=== PATIENT | female | born 1965 | race Caucasian/White ===

== ENCOUNTER 2016-07-28 22:22 | Inpatient (IN) | payer MEDICARE, MEDICAID ==
[2016-07-28] MEDS ORDERED: CEFEPIME 2 GM/D5W RTU 50 ML IV ONE (22:34)
[2016-07-28] MEDS ORDERED: NORMAL SALINE 1000 ML 1,000 ML IV ONE ×2 (22:35→23:52)
[2016-07-28] MEDS ORDERED: KETAMINE HCL INJ 500 MG/10 ML VIAL ONE (22:39)
--- NOTE | 2016-07-28 22:43 | ER Document Report ---
ED General - General Stated Complaint: UNRESPONSIVE Cannot obtain history due to: Unstable vital signs, Altered mental status Notes: Patient is a 50-year-old female with past medical history of chronic pain, depression, history of polysubstance abuse currently off her narcotic and benzodiazepine medications who presents by EMS after being found by family unresponsive. EMS notes that her initial oxygen saturation was 32% on room air. Family states the patient had apparently been hallucinating throughout the day today but had been able to be up and walking around. Family notes that she had had a cough and had been seen by her primary care physician for this several days ago and diagnosed with bronchitis. History is otherwise very limited as patient arrives with a GCS of 3 and is unable to provide any meaningful history. She is critically ill and unstable at time of arrival. TRAVEL OUTSIDE OF THE [place] IN LAST 30 DAYS: No - Related Data Allergies/Adverse Reactions: Penicillins Allergy (Severe, Verified 01/08/16 04:43) Hives acetaminophen [From Tylenol] Allergy (Intermediate, Verified 01/08/16 04:43) Hives Home Medications: Current Home Medications Buspirone HCl 7.5 mg PO BID 07/29/16 [History] Zolpidem Tartrate 10 mg PO DAILY PRN 07/29/16 [History] Past Medical History - General Information source: Emergency Med Personnel Cannot obtain history due to: Unstable vital signs, Altered mental status - Social History Smoking Status: Unknown if Ever Smoked Lives with: Family Family History: Reviewed & Not Pertinent - Past Medical History Cardiac Medical History: Reports: Hx Congestive Heart Failure, Hx Hypertension Denies: Hx Coronary Artery Disease, Hx Heart Attack Pulmonary Medical History: Reports: Hx Asthma, Hx Bronchitis, Hx Pneumonia Denies: Hx COPD, Hx Tuberculosis Neurological Medical History: Reports: Hx Migraine, Hx Seizures. Denies: Hx Cerebrovascular Accident Endocrine Medical History: Reports: Hx Hypothyroidism Malignancy Medical History: Reports: Hx Leukemia GI Medical History: Reports: Hx Gastroesophageal Reflux Disease Musculoskeltal Medical History: Reports Hx Arthritis, Reports Hx Fibromyalgia Psychiatric Medical History: Reports: Hx Anxiety, Hx Depression Past Surgical History: Reports: Hx Cholecystectomy, Hx Hysterectomy, Hx Orthopedic Surgery - knee surgery, Hx Pacemaker, Hx Rectal Surgery - colon resection - Immunizations Immunizations up to date: Yes Hx Diphtheria, Pertussis, Tetanus Vaccination: Yes Hx Pneumococcal Vaccination: 05/03/10 Review of Systems - Review of Systems -: Yes ROS unobtainable due to patient's medical condition Physical Exam - Vital signs Vitals: Pulse Resp BP Pulse Ox 93 14 119/61 90 L 07/28/16 22:22 07/28/16 22:22 07/28/16 22:22 07/28/16 22:22 Interpretation: Hypotensive, Tachycardic, Hypoxic, Tachypneic Notes: PHYSICAL EXAMINATION: GENERAL: Critically ill in appearance. Agonal respirations. GCS of 3 HEAD: Atraumatic, normocephalic. EYES: Pupils equal round 3 mm and sluggishly reactive, sclera anicteric, conjunctiva are normal. ENT: nares patent, oropharynx clear without exudates. Dry mucous membranes. NECK: supple without lymphadenopathy LUNGS: Scattered rhonchi bilaterally left worse than right HEART: Regular tachycardia without murmurs ABDOMEN: Nondistended, soft to palpation EXTREMITIES: no pitting or edema. No cyanosis. NEUROLOGICAL: Patient does not respond to noxious stimuli in any extremity. Pupils are 3 mm and sluggishly reactive bilaterally. She does have spontaneous respirations as well as a gag reflex. PSYCH: GCS of 3 unable to assess SKIN: Warm, cool, normal turgor, no rashes or lesions noted. Course - Re-evaluation Re-evalutation: 07/28/16 22:44 Patient arrives GCS of 3 after being found unresponsive by EMS shortly prior to arrival. She does have spontaneous respirations but does not follow commands in any extremity does not move to noxious stimuli in any extremity. Pupils are 2 mm and sluggishly reactive. She has obvious vomitus and blood in her airway. Not protecting her airway at this time. Initial saturation was apparently 32 % on room air. She is cool to the touch. Patient has been seen in the emergency department on multiple occasions for similar presentations and this is not generally to be overdose although she did have no response to 4 mg of Narcan prior to arrival. Due to her failure to protect her airway, a rapid sequence induction was performed for intubation. This was achieved on the first attempt. Laboratories, chest x-ray, cultures will be obtained. She will be started on cefepime 2 g given her hypothermia, tachycardia, and immune compromised status. Thrush was noted in the oropharynx during intubation suggesting a highly immune compromised status. 07/28/16 23:53 Patient is decompensated with her systolic pressures dropping into the 70s. She remains a GCS of 3 despite no sedation or paralytics on board at this time. A right femoral central line was placed and a norepinephrine infusion was begun. Patient's chest x-ray shows bilateral infiltrates worse on the left most likely consistent with either aspiration pneumonia or community-acquired pneumonia. She was started on cefepime, Flagyl, levofloxacin. A bedside echocardiogram does not show any evidence of dilation or myocardial thickening. No pericardial effusion. IVC mildly diminished with greater than 50% respiratory fluctuation. She has been started on a second liter of normal saline. She is critically ill and continues to require intensive monitoring. Patient is too unstable to go to CT at this time. 07/29/16 00:51 Patient's MAP resting at 70 w/ norepi at 8. Family updated. Vent settings changed given elevated pc02 rr to 18. Awaiting CT results. Labs show mild troponin, CK elevated to a level consistent with rabdo. 07/29/16 02:50 CT the head has been read as negative. Patient has maintained her pressures with a map of 70 at this time on norepinephrine of 8. Repeat venous gas will be obtained at this time to ensure that her PCO2 is clearing on the appropriate settings. She has been admitted to Dr. Mtz to the ICU at this time. 07/29/16 04:38 Venous blood gas shows normalization of blood pH at this time. Patient remains hemodynamically within normal limits at this time on norepinephrine drip of 5. - Vital Signs Vital signs: Temp Pulse Resp BP Pulse Ox 99 F 93 19 109/66 98 07/29/16 03:06 07/28/16 22:22 07/29/16 04:06 07/29/16 04:06 07/29/16 04:06 - Laboratory Result Diagrams: 07/28/16 22:30 07/28/16 22:30 Laboratory results interpreted by me: 07/28/16 07/28/16 07/28/16 22:30 22:30 22:30 WBC 14.4 H RBC 3.29 L Hgb 10.7 L Hct 32.8 L MCV 100 H RDW 14.5 H Seg Neutrophils % 86.6 H Lymphocytes % 8.5 L Absolute Neutrophils 13.4 H VBG pH VBG pCO2 Chloride BUN Creatinine Est GFR ( Amer) Est GFR (Non-Af Amer) Glucose Calcium AST Creatine Kinase CK-MB (CK-2) 50.00 H NT-Pro-B Natriuret Pep TSH 0.07 L Urine Protein Urine Blood 07/28/16 07/28/16 07/28/16 22:30 22:30 22:30 WBC RBC Hgb Hct MCV RDW Seg Neutrophils % Lymphocytes % Absolute Neutrophils VBG pH VBG pCO2 Chloride 95 L BUN 29 H Creatinine 1.48 H Est GFR ( Amer) 45 L Est GFR (Non-Af Amer) 37 L Glucose 295 H Calcium 8.1 L AST 95 H Creatine Kinase 2067 H CK-MB (CK-2) NT-Pro-B Natriuret Pep 1620 H TSH Urine Protein Urine Blood 07/28/16 07/28/16 23:29 23:57 WBC RBC Hgb Hct MCV RDW Seg Neutrophils % Lymphocytes % Absolute Neutrophils VBG pH 7.18 L* VBG pCO2 68.1 H* Chloride BUN Creatinine Est GFR ( Amer) Est GFR (Non-Af Amer) Glucose Calcium AST Creatine Kinase CK-MB (CK-2) NT-Pro-B Natriuret Pep TSH Urine Protein 100 H Urine Blood MODERATE H - Diagnostic Test Radiology reviewed: Image reviewed, Reports reviewed Radiology results interpreted by me: 07/28/16 23:55 CXR: Bilateral infiltrates worse in the left - EKG Interpretation by Me Additional EKG results interpreted by me: 07/29/16 04:38 Sinus tachycardia. Rate 103. No ST elevations or depressions. QTC is 504 and prolonged Procedures - Central Line Right Femoral Time completed: 23:40 Consent obtained: No - emergent Central line pre-insertion: Chloraprep applied, Sterile drapes applied Central line lumen type: Triple Anesthetic type: 1% Lidocaine mL's of anesthesia: 1 Ultrasound guided: Yes CM at insertion site: 21 Line secured with sutures: Yes Central line post-insertion: Blood return from lumens, Biopatch applied, Sutured , Sterile dressing applied Number of attempts: 1 Complications: No - Intubation Orotracheal Time of Intubation: 22:30 Airway evaluation: Normal anatomy Mallampati Classification: Class 2 Medications: Succinylcholine, Ketamine Intubation method: Orotracheal Blade type: Blanca Blade size: 4 ETT size: 7.5 ETT secured at: Gums ETT secured at (cm): 22 Breath Sounds after Intubation: Equal End tidal CO2 confirmed: Yes Ventilator settings: SIMV Tidal volume: 500 FiO2: 80 Respirations: 12 PEEP: 8 Post Intubation Xray: Yes Intubation Complications: No complications Critical Care Note - Critical Care Note Total time excluding time spent on procedures (mins): 85 Comments: Critical care time spent obtaining history from patient or surrogate, discussions with consultants, development of treatment plan with patient or surrogate, evaluation of patient's response to treatment, examination of patient , ordering and performing treatments and interventions, ordering and review of laboratory studies, re-evaluation of patient's condition, ordering and review of radiographic studies and review of old charts Discharge - Discharge Clinical Impression: Respiratory distress, Respiratory acidosis, Septic shock Bilateral pneumonia Qualifiers: Pneumonia type: due to unspecified organism Lung location: unspecified part of lung Qualified Code(s): J18.9 - Pneumonia, unspecified organism Condition: Critical Disposition: ADMITTED INPATIENT Admitting Provider: [facility] Unit Admitted: ICU
[2016-07-28 23:22] LABS: HEMATOCRIT 32.8 % (36.0-47.0); HEMOGLOBIN 10.7 g/dL (12.0-15.5); HGB HCT DIFFERENCE -0.7; MEAN CORPUSCULAR HEMOGLOBIN 32.6 pg (27.0-33.4); MEAN CORPUSCULAR HGB CONC 32.7 g/dL (32.0-36.0); MEAN CORPUSCULAR VOLUME 100 fl (80-97); RED BLOOD COUNT 3.29 10^6/uL (3.72-5.28); RED CELL DISTRIBUTION WIDTH 14.5 % (11.5-14.0); WHITE BLOOD COUNT 14.4 10^3/uL (4.0-10.5)
[2016-07-28] MEDS ORDERED: METRONIDAZOLE 500 MG/NS RTU 100 ML IV ONE (23:26)
[2016-07-28] MEDS ORDERED: SUCCINYLCHOLINE CHLORIDE INJ 200 MG/10 ML VIAL IV ONE (23:26)
[2016-07-28] MEDS ORDERED: KETAMINE HCL INJ 500 MG/10 ML VIAL IV ONE (23:26)
[2016-07-28] MEDS ORDERED: NOREPINEPHRINE BITARTRATE INJ/PF 4 MG/4 ML SDV IV ONE (23:32)
[2016-07-28 23:36] LABS: ADD ON TESTING BLD IN LAB ACKNOWLEDGE
[2016-07-28] MEDS ORDERED: CEFEPIME INJ 2 GM VIAL ONE (23:50)
[2016-07-28] MEDS ORDERED: LEVOFLOXACIN 750 MG/D5W RTU 150 ML IV ONE (23:52)
[2016-07-28] MEDS ORDERED: DEXTROSE 5%-WATER 250 ML with NOREPINEPHRINE BITARTRATE 4 MG IV PRN ×2 (23:52)
[2016-07-28 23:55] LABS: ALANINE AMINOTRANSFERASE 35 U/L (9-52); ALBUMIN 3.7 g/dL (3.5-5.0); ALKALINE PHOSPHATASE 119 U/L (38-126); ANION GAP 19 (5-19); ASPARTATE AMINO TRANSFERASE 95 U/L (14-36); BILIRUBIN,TOTAL 0.5 mg/dL (0.2-1.3); BLOOD UREA NITROGEN 29 mg/dL (7-20); CALCIUM 8.1 mg/dL (8.4-10.2); CARBON DIOXIDE 24 mmol/L (22-30); CHLORIDE 95 mmol/L (98-107); CREATININE RESULT 1.48 mg/dL (0.52-1.25); GLUCOSE 295 mg/dL (75-110); SODIUM 138.2 mmol/L (137-145); TOTAL PROTEIN 6.3 g/dL (6.3-8.2)
[2016-07-28 23:59] LABS: ABSOLUTE LYMPHOCYTES (AUTO) 1.3 10^3/uL (0.5-4.7); ABSOLUTE MONOCYTES (AUTO) 0.7 10^3/uL (0.1-1.4); ABSOLUTE NEUT (AUTO) 13.4 10^3/uL (1.7-8.2); BASOPHILS % (AUTO) 0.2 % (0-2); EOSINOPHILS % (AUTO) 0.1 % (0-6); LYMPHOCYTES % (AUTO) 8.5 % (13-45); MONOCYTES % (AUTO) 4.6 % (3-13); SEGMENTED NEUTROPHILS % (AUTO) 86.6 % (42-78)
[2016-07-29 00:06] LABS: TROPONIN I 0.105 ng/mL
[2016-07-29 00:09] LABS: VENOUS BLOOD BASE EXCESS -5.2 mmol/L; VENOUS BLOOD HCO3 24.6 mmol/L (20-32)
[2016-07-29 00:11] LABS: THYROID STIMULATING HORMONE 0.07 uIU/mL (0.47-4.68)
[2016-07-29 00:16] LABS: VENOUS BLOOD PCO2 68.1 mmHg (35-63); VENOUS BLOOD PH 7.18 (7.30-7.42)
[2016-07-29 01:00] LABS: AMORPHOUS SEDIMENT,URINE 1+ /HPF; APPEARANCE,URINE CLOUDY; BILIRUBIN,URINE NEGATIVE (NEGATIVE); GLUCOSE, URINE NEGATIVE (NEGATIVE); KETONES,URINE NEGATIVE (NEGATIVE); LEUKOCYTE ESTERASE,URINE NEGATIVE (NEGATIVE); NITRITE,URINE NEGATIVE (NEGATIVE); PROTEIN,URINE 100 mg/dL (NEGATIVE); URINE SPECIFIC GRAVITY 1.019; UROBILINOGEN,URINE NEGATIVE mg/dL (<2.0)
[2016-07-29 01:10] LABS: URINE BARBITURATES SCREEN NEGATIVE; URINE METHADONE SCREEN NEGATIVE; URINE PHENCYCLIDINE SCREEN NEGATIVE
[2016-07-29] MEDS ORDERED: VANCOMYCIN HCL 0 MG in DEXTROSE 5%-WATER 250 ML IV NR (03:15)
[2016-07-29] MEDS: NORMAL SALINE 1000 ML 1,000 ML IV PRN ×2 (03:15→13:44)
[2016-07-29 03:40] LABS: VENOUS BLOOD BASE EXCESS -3.9 mmol/L; VENOUS BLOOD HCO3 22.7 mmol/L (20-32); VENOUS BLOOD PCO2 47.4 mmHg (35-63); VENOUS BLOOD PH 7.3 (7.30-7.42)
[2016-07-29] MEDS ORDERED: ERTAPENEM SODIUM INJ 1 GM VIAL IV PRN (03:42)
[2016-07-29] MEDS ORDERED: NOREPINEPHRINE BITARTRATE INJ/PF 4 MG/4 ML SDV IV PRN (03:46)
[2016-07-29 03:54] LABS: LIPASE 30.4 U/L (23-300); PHOSPHORUS 3.2 mg/dL (2.5-4.5)
[2016-07-29] MEDS ORDERED: VANCOMYCIN HCL INJ 1000 MG VIAL IV PRN (03:57)
[2016-07-29] MEDS ORDERED: ERTAPENEM SODIUM 1 GM in NORMAL SALINE 50 ML IV ONE (04:00)
[2016-07-29 04:10] LABS: CREATINE KINASE MB 39.5 ng/mL (<4.55)
[2016-07-29 04:25] LABS: THYROID STIMULATING HORMONE 0.06 uIU/mL (0.47-4.68)
[2016-07-29 04:26] LABS: TROPONIN I 0.386 ng/mL
[2016-07-29] MEDS ORDERED: VANCOMYCIN HCL 1,000 MG in DEXTROSE 5%-WATER 250 ML IV ONE (05:00)
[2016-07-29 08:27] LABS: ABSOLUTE LYMPHOCYTES (AUTO) 0.7 10^3/uL (0.5-4.7); ABSOLUTE MONOCYTES (AUTO) 0.6 10^3/uL (0.1-1.4); ABSOLUTE NEUT (AUTO) 11.3 10^3/uL (1.7-8.2); BASOPHILS % (AUTO) 0.2 % (0-2); HEMATOCRIT 27.2 % (36.0-47.0); HEMOGLOBIN 9.2 g/dL (12.0-15.5); HGB HCT DIFFERENCE 0.4; LYMPHOCYTES % (AUTO) 5.2 % (13-45); MEAN CORPUSCULAR HEMOGLOBIN 32.6 pg (27.0-33.4); MEAN CORPUSCULAR HGB CONC 33.6 g/dL (32.0-36.0); MEAN CORPUSCULAR VOLUME 97 fl (80-97); MONOCYTES % (AUTO) 4.9 % (3-13); RED BLOOD COUNT 2.81 10^6/uL (3.72-5.28); RED CELL DISTRIBUTION WIDTH 14.5 % (11.5-14.0); SEGMENTED NEUTROPHILS % (AUTO) 89.7 % (42-78); WHITE BLOOD COUNT 12.6 10^3/uL (4.0-10.5)
[2016-07-29 08:31] LABS: PROTHROMBIN TIME 34.7 SEC (11.4-15.4)
--- NOTE | 2016-07-29 08:37 | EKG REPORT ---
SEVERITY:- ABNORMAL ECG - SINUS TACHYCARDIA PROLONGED QT INTERVAL : Confirmed by: John Paul Weathers MD 29-Jul-2016 08:36:26
[2016-07-29 08:38] LABS: ALANINE AMINOTRANSFERASE 44 U/L (9-52); ALBUMIN 2.5 g/dL (3.5-5.0); ALKALINE PHOSPHATASE 99 U/L (38-126); ANION GAP 10 (5-19); ASPARTATE AMINO TRANSFERASE 90 U/L (14-36); BILIRUBIN,TOTAL 0.1 mg/dL (0.2-1.3); BLOOD UREA NITROGEN 24 mg/dL (7-20); CARBON DIOXIDE 24 mmol/L (22-30); CHLORIDE 105 mmol/L (98-107); CREATININE RESULT 1.09 mg/dL (0.52-1.25); GLUCOSE 110 mg/dL (75-110); POTASSIUM 3.2 mmol/L (3.6-5.0); SODIUM 139.1 mmol/L (137-145); TOTAL PROTEIN 4.7 g/dL (6.3-8.2)
[2016-07-29 08:52] LABS: ARTERIAL BLOOD BASE EXCESS -2.7 mmol/L; ARTERIAL BLOOD O2 SATURATION 76.8 % (94-98)
[2016-07-29 09:25] LABS: CALCIUM 6.7 mg/dL (8.4-10.2)
[2016-07-29] MEDS ORDERED: LEVOFLOXACIN 750 MG/D5W RTU 750 MG/150 ML RTUPB IV SCH (10:00)
[2016-07-29] MEDS ORDERED: LEVOFLOXACIN 750 MG/D5W RTU 150 ML IV SCH (10:00)
[2016-07-29] MEDS ORDERED: ERTAPENEM SODIUM 1 GM in NORMAL SALINE 50 ML IV SCH ×2 (10:00→22:00)
[2016-07-29] MEDS ORDERED: SUCCINYLCHOLINE CHLORIDE INJ 200 MG/10 ML VIAL ONE (10:07)
[2016-07-29 10:41] LABS: CREATINE KINASE MB 32.8 ng/mL (<4.55)
[2016-07-29 10:52] LABS: TROPONIN I 0.506 ng/mL
--- NOTE | 2016-07-29 13:02 | PDOC CONSULTATION ---
Consultation Consult Date: 07/29/16 Attending physician:: TATY MILLARD Consult reason:: resp fail/pna History of Present Illness Admission Date/PCP: 07/29/16 03:07 TATY MILLARD History of Present Illness: LAURIE SHEPARD is a 50 year old female Her normal state of health until approximately 4 days prior to admission he was treated for "bronchitis" using antibiotics and appeared to be slightly better however the 24 hours prior to admission became increasingly more confused when stated she went to bed and was difficult to arouse subsequently she was taken to the emergency room by EMT while on BiPAP once in the emergency room she subsequently was intubated Past Medical History Cardiac Medical History: Reports: Congestive Heart Failure, Hypertension Denies: Coronary Artery Disease, Myocardial Infarction Pulmonary Medical History: Reports: Asthma, Bronchitis, Pneumonia Denies: Chronic Obstructive Pulmonary Disease (COPD), Tuberculosis Neurological Medical History: Reports: Migraine, Seizures Endocrine Medical History: Reports: Hypothyroidism Malignancy Medical History: Reports: Leukemia GI Medical History: Reports: Gastroesophageal Reflux Disease Musculoskeltal Medical History: Reports: Arthritis, Fibromyalgia Psychiatric Medical History: Reports: Depression Hematology: Reports: Anemia Past Surgical History Past Surgical History: Reports: Cholecystectomy, Hysterectomy, Orthopedic Surgery - knee surgery, Pacemaker Social History Information Source: Relative, [facility] Records Lives with: Family Smoking Status: Current Every Day Smoker Cigarettes Packs Per Day: 0.5 Number of Years Smokin Passive smoke exposure as: Both Frequency of Alcohol Use: None Hx Recreational Drug Use: No Hx Prescription Drug Abuse: No - Advance Directive Resuscitation Status: Full Code Family History Family History: Reviewed & Not Pertinent Parental Family History Reviewed: Yes - Cancer Children Family History Reviewed: Yes - Diverticular disease Sibling(s) Family History Reviewed.: Yes - Cancer Medication/Allergy Home Medications: Atorvastatin Calcium 40 mg PO QHS 02/10/13 Duloxetine HCl [Cymbalta] 60 mg PO DAILY 02/10/13 Esomeprazole Magnesium [Nexium] 40 mg PO DAILY 02/10/13 Imatinib Mesylate [Gleevec] 400 mg PO DAILY 02/10/13 Levetiracetam [Keppra] 1,000 mg PO BID 04/22/14 Oxycodone HCl [Oxycontin] 1 tab PO BID 04/22/14 Gabapentin [Neurontin 300 mg Capsule] 300 mg PO QID 04/17/15 Budesonide/Formoterol Fumarate [Symbicort HFA 160-4.5 mcg Inhaler 6 gm] 2 puff IH Q12 #0 inhaler 07/16/15 Albuterol Sulfate [Proair HFA] 2 inh IN TID 11/30/15 Clopidogrel Bisulfate [Plavix 75 mg Tablet] 75 mg PO DAILY 11/30/15 Metoprolol Tartrate 12.5 mg PO BID 11/30/15 Oxycodone HCl 5 mg PO TID 11/30/15 Levothyroxine Sodium 100 mcg PO DAILY 01/08/16 Buspirone HCl 7.5 mg PO BID 07/29/16 Zolpidem Tartrate 10 mg PO DAILY PRN 07/29/16 Allergies/Adverse Reactions: Penicillins Allergy (Severe, Verified 01/08/16 04:43) Hives acetaminophen [From Tylenol] Allergy (Intermediate, Verified 01/08/16 04:43) Hives Review of Systems ROS unobtainable: Due to endotracheal tube Physical Exam Vital Signs: Temp Pulse Resp BP Pulse Ox 99.5 F 86 20 111/59 L 97 07/29/16 08:00 07/29/16 08:12 07/29/16 08:13 07/29/16 08:13 07/29/16 08:30 Intake & Output 07/28/16 07/29/16 07/30/16 06:59 06:59 06:59 Intake Total 437 Output Total 350 Balance 87 Weight 63.1 kg General appearance: PRESENT: no acute distress, disheveled, obese Head exam: PRESENT: atraumatic, normocephalic Eye exam: PRESENT: conjunctiva pale Mouth exam: PRESENT: moist, neck supple, tongue midline, other - ET tube Neck exam: ABSENT: carotid bruit, JVD, lymphadenopathy, thyromegaly Respiratory exam: PRESENT: decreased breath sounds, prolonged expiratory phas, rales, stridor, unlabored - Abnormal breath sounds primarily on the right anterior lateral and right posterior chest wall Cardiovascular exam: PRESENT: RRR, +S1 Pulses: PRESENT: other - Pulses diminished patient currently on vasopressor agent GI/Abdominal exam: PRESENT: normal bowel sounds, soft. ABSENT: distended, guarding, mass, organolmegaly, rebound, tenderness Rectal exam: PRESENT: deferred Gentrourinary exam: PRESENT: indwelling catheter Extremities exam: PRESENT: other - Triple-lumen catheter in femoral vein Musculoskeletal exam: PRESENT: normal inspection Skin exam: PRESENT: dry, warm Results Laboratory Results: 07/29/16 07:31 07/29/16 07:31 07/29/16 07/29/16 07/29/16 03:29 03:29 03:29 WBC RBC Hgb Hct MCV MCH MCHC RDW Plt Count Seg Neutrophils % Lymphocytes % Monocytes % Eosinophils % Basophils % Absolute Neutrophils Absolute Lymphocytes Absolute Monocytes Absolute Eosinophils Absolute Basophils Carbonic Acid HCO3/H2CO3 Ratio ABG pH ABG pCO2 ABG pO2 ABG HCO3 ABG O2 Saturation ABG Base Excess VBG pH 7.30 VBG pCO2 47.4 VBG HCO3 22.7 VBG Base Excess -3.9 FiO2 Sodium Potassium Chloride Carbon Dioxide Anion Gap BUN Creatinine Est GFR ( Amer) Est GFR (Non-Af Amer) Glucose Calcium Phosphorus 3.2 Magnesium 2.0 Total Bilirubin AST ALT Alkaline Phosphatase Ammonia 26.2 Total Protein Albumin Amylase 60 Lipase 30.4 TSH Free T4 07/29/16 07/29/16 07/29/16 03:29 07:31 07:31 WBC 12.6 H RBC 2.81 L Hgb 9.2 L Hct 27.2 L MCV 97 MCH 32.6 MCHC 33.6 RDW 14.5 H Plt Count 281 Seg Neutrophils % 89.7 H Lymphocytes % 5.2 L Monocytes % 4.9 Eosinophils % 0.0 Basophils % 0.2 Absolute Neutrophils 11.3 H Absolute Lymphocytes 0.7 Absolute Monocytes 0.6 Absolute Eosinophils 0.0 Absolute Basophils 0.0 Carbonic Acid HCO3/H2CO3 Ratio ABG pH ABG pCO2 ABG pO2 ABG HCO3 ABG O2 Saturation ABG Base Excess VBG pH VBG pCO2 VBG HCO3 VBG Base Excess FiO2 Sodium 139.1 Potassium 3.2 L Chloride 105 Carbon Dioxide 24 Anion Gap 10 BUN 24 H Creatinine 1.09 Est GFR ( Amer) > 60 Est GFR (Non-Af Amer) 53 L Glucose 110 Calcium 6.7 L* Phosphorus Magnesium Total Bilirubin 0.1 L AST 90 H ALT 44 Alkaline Phosphatase 99 Ammonia Total Protein 4.7 L Albumin 2.5 L Amylase Lipase TSH 0.06 L Free T4 1.89 07/29/16 08:35 WBC RBC Hgb Hct MCV MCH MCHC RDW Plt Count Seg Neutrophils % Lymphocytes % Monocytes % Eosinophils % Basophils % Absolute Neutrophils Absolute Lymphocytes Absolute Monocytes Absolute Eosinophils Absolute Basophils Carbonic Acid 1.42 H HCO3/H2CO3 Ratio 16:1 ABG pH 7.31 L ABG pCO2 47.2 H ABG pO2 45.1 L ABG HCO3 23.4 ABG O2 Saturation 76.8 L ABG Base Excess -2.7 VBG pH VBG pCO2 VBG HCO3 VBG Base Excess FiO2 60% Sodium Potassium Chloride Carbon Dioxide Anion Gap BUN Creatinine Est GFR ( Amer) Est GFR (Non-Af Amer) Glucose Calcium Phosphorus Magnesium Total Bilirubin AST ALT Alkaline Phosphatase Ammonia Total Protein Albumin Amylase Lipase TSH Free T4 07/29/16 07/29/16 03:29 10:05 CK-MB (CK-2) 39.50 H 32.80 H Troponin I 0.386 0.506 Impressions: Head CT 07/29/16 00:00 IMPRESSION: NORMAL BRAIN CT WITHOUT CONTRAST. Lines and tubes . Assessment & Plan - Diagnosis (1) Bilateral pneumonia Qualifiers: Pneumonia type: due to unspecified organism Lung location: unspecified part of lung Qualified Code(s): J18.9 - Pneumonia, unspecified organism Is this a current diagnosis for this admission?: YesPlan: Etiology uncertain patient is chronically treated for CML by Dr. Arriola (2) Septic shock Is this a current diagnosis for this admission?: YesPlan: Currently requiring vasopressor agents (3) COPD (chronic obstructive pulmonary disease) Qualifiers: COPD type: unspecified COPD Qualified Code(s): J44.9 - Chronic obstructive pulmonary disease, unspecified Is this a current diagnosis for this admission?: YesPlan: Continue current bronchodilator therapy (4) Leukemia Is this a current diagnosis for this admission?: YesPlan: CML being treated by Dr. Arriola - Time Critical Time spent with patient: 35 or more minutes - 50 minute
--- NOTE | 2016-07-29 13:03 | PDOC PROGRESS REPORT ---
Bedside Procedure - Central Line Right Internal jugular Time completed: 13:02 Consent obtained: Yes Central line pre-insertion: Sterile PPE donned, Betadine prep applied, Chloraprep applied, Sterile drapes applied Central line lumen type: Triple Anesthetic type: 1% Lidocaine Ultrasound guided: Yes Line secured with sutures: Yes Complications: No
[2016-07-29] MEDS ORDERED: NORMAL SALINE INJ/PF 0.9% 10 ML SDV IV PRN (13:04)
[2016-07-29] MEDS: LEVOTHYROXINE SODIUM 0.1 MG TABLET NG SCH (13:08)
[2016-07-29] MEDS: LEVETIRACETAM 500 MG TABLET GT SCH ×2 (13:09→19:57)
[2016-07-29] MEDS: LANSOPRAZOLE 30 MG TAB.RAP.DR PO SCH ×2 (13:09→19:58)
[2016-07-29] MEDS: VANCOMYCIN HCL 1,000 MG in DEXTROSE 5%-WATER 250 ML IV SCH (13:43)
[2016-07-29] MEDS: AZTREONAM 1 GM in DEXTROSE 5%-WATER 50 ML IV SCH ×2 (13:43→22:54)
[2016-07-29] MEDS: PROPOFOL 100 ML IV PRN ×3 (13:44→21:13)
[2016-07-29] MEDS: HEPARIN SOD (PORCINE) 5,000 UNIT/ML 1 ML SYRINGE SUBCUT SCH ×2 (13:45→19:30)
[2016-07-29 16:12] LABS: CREATINE KINASE MB 21.9 ng/mL (<4.55); TROPONIN I 0.421 ng/mL
[2016-07-29 17:44] LABS: ARTERIAL BLOOD BASE EXCESS -2.2 mmol/L; ARTERIAL BLOOD O2 SATURATION 95.1 % (94-98)
[2016-07-29] MEDS ORDERED: POTASSIUM CHLORIDE 20 MEQ/50 ML RTU IV SCH (18:00)
[2016-07-29] MEDS ORDERED: PHYTONADIONE INJ 10 MG/1 ML AMPULE ONE (18:04)
[2016-07-29] MEDS: POTASSIUM CHLORIDE 20 MEQ/50 ML RTU IV SCH ×2 (19:54→22:09)
--- NOTE | 2016-07-29 20:19 | PDOC H&P ---
History of Present Illness Admission Date/PCP: 07/29/16 03:07 TATY MILLARD Patient complains of: Change in mental status with difficulty arousing patient from sleep History of Present Illness: She is 50 years old female patient known to my practice with history of chronic myeloid leukemia brought to the Emergency department by EMS after family alerted service due to difficulty waking her up from sleep. She was recently seen at the office for presumed upper respiratory infection and treated for bronchitis. Family reported that patient did show some initial improvement but became more confused with worsening breathing problem. There was no reported fever or chills. No reported chest pain. No nausea or vomiting. Family reported that she was ambulatory at home before going to bed to sleep and thereafter attempts to arouse her from sleep have been difficult. In view of her change in mental status EMS was activated. EMS personnel found pain in respiratory distress with hypoxemia and need for BiPAP support enroute to the hospital. In view of her unresponsiveness and to protect her airway she was eventually intubated. She demonstrated associated hypotension necessitating pressor support and admission to ICU. Past Medical History Cardiac Medical History: Reports: Congestive Heart Failure, Hypertension Denies: Coronary Artery Disease, Myocardial Infarction Pulmonary Medical History: Reports: Asthma, Bronchitis, Pneumonia Denies: Chronic Obstructive Pulmonary Disease (COPD), Tuberculosis Neurological Medical History: Reports: Migraine, Seizures Endocrine Medical History: Reports: Hypothyroidism Malignancy Medical History: Reports: Leukemia GI Medical History: Reports: Gastroesophageal Reflux Disease Musculoskeltal Medical History: Reports: Arthritis, Fibromyalgia Psychiatric Medical History: Reports: Depression Hematology: Reports: Anemia Past Surgical History Past Surgical History: Reports: Cholecystectomy, Hysterectomy, Orthopedic Surgery - knee surgery, Pacemaker Social History Lives with: Family Smoking Status: Current Every Day Smoker Cigarettes Packs Per Day: 0.5 Number of Years Smokin Frequency of Alcohol Use: None Hx Recreational Drug Use: No Hx Prescription Drug Abuse: No - Advance Directive Resuscitation Status: Full Code Family History Family History: Reviewed & Not Pertinent Parental Family History Reviewed: Yes Children Family History Reviewed: Yes Sibling(s) Family History Reviewed.: Yes Medication/Allergy Home Medications: Atorvastatin Calcium 40 mg PO QHS 02/10/13 Duloxetine HCl [Cymbalta] 60 mg PO DAILY 02/10/13 Esomeprazole Magnesium [Nexium] 40 mg PO DAILY 02/10/13 Imatinib Mesylate [Gleevec] 400 mg PO DAILY 02/10/13 Levetiracetam [Keppra] 1,000 mg PO BID 04/22/14 Oxycodone HCl [Oxycontin] 1 tab PO BID 04/22/14 Gabapentin [Neurontin 300 mg Capsule] 300 mg PO QID 11/17/14 Budesonide/Formoterol Fumarate [Symbicort HFA 160-4.5 mcg Inhaler 6 gm] 2 puff IH Q12 #0 inhaler 07/16/15 Albuterol Sulfate [Proair HFA] 2 inh IN TID 11/30/15 Clopidogrel Bisulfate [Plavix 75 mg Tablet] 75 mg PO DAILY 11/30/15 Metoprolol Tartrate 12.5 mg PO BID 11/30/15 Oxycodone HCl 5 mg PO TID 11/30/15 Levothyroxine Sodium 100 mcg PO DAILY 01/08/16 Buspirone HCl 7.5 mg PO BID 07/29/16 Zolpidem Tartrate 10 mg PO DAILY PRN 07/29/16 Allergies/Adverse Reactions: Penicillins Allergy (Severe, Verified 01/08/16 04:43) Hives acetaminophen [From Tylenol] Allergy (Intermediate, Verified 01/08/16 04:43) Hives Review of Systems ROS unobtainable: Due to endotracheal tube, Due to mental status Physical Exam Vital Signs: Temp Pulse Resp BP Pulse Ox 98.8 F 96 20 108/58 L 97 07/29/16 18:00 07/29/16 18:00 07/29/16 19:28 07/29/16 19:28 07/29/16 19:28 Intake & Output 07/28/16 07/29/16 07/30/16 06:59 06:59 06:59 Intake Total 437 2027 Output Total 350 1105 Balance 87 922 Weight 63.1 kg General appearance: PRESENT: obese Head exam: PRESENT: atraumatic, normocephalic Eye exam: PRESENT: conjunctiva pink, EOMI, PERRLA. ABSENT: scleral icterus Ear exam: PRESENT: normal external ear exam Mouth exam: PRESENT: moist, other - ET NG tutes in situ. Respiratory exam: PRESENT: crackles - scattered bilaterally, decreased breath sounds - at lung bases, symmetrical Cardiovascular exam: PRESENT: RRR. ABSENT: diastolic murmur, rubs, systolic murmur Vascular exam: PRESENT: normal capillary refill GI/Abdominal exam: PRESENT: normal bowel sounds, soft. ABSENT: distended, guarding, mass, organolmegaly, rebound, tenderness Gentrourinary exam: PRESENT: indwelling catheter Extremities exam: PRESENT: full ROM Musculoskeletal exam: PRESENT: normal inspection Neurological exam: PRESENT: altered - sedated on IV propofol on ventilator support Skin exam: PRESENT: dry, intact, warm. ABSENT: cyanosis, rash Results Laboratory Results: 07/29/16 07:31 07/29/16 07:31 07/29/16 07/29/16 07/29/16 03:29 03:29 03:29 WBC RBC Hgb Hct MCV MCH MCHC RDW Plt Count Seg Neutrophils % Lymphocytes % Monocytes % Eosinophils % Basophils % Absolute Neutrophils Absolute Lymphocytes Absolute Monocytes Absolute Eosinophils Absolute Basophils Carbonic Acid HCO3/H2CO3 Ratio ABG pH ABG pCO2 ABG pO2 ABG HCO3 ABG O2 Saturation ABG Base Excess VBG pH 7.30 VBG pCO2 47.4 VBG HCO3 22.7 VBG Base Excess -3.9 FiO2 Sodium Potassium Chloride Carbon Dioxide Anion Gap BUN Creatinine Est GFR ( Amer) Est GFR (Non-Af Amer) Glucose Calcium Phosphorus 3.2 Magnesium 2.0 Total Bilirubin AST ALT Alkaline Phosphatase Ammonia 26.2 Total Protein Albumin Amylase 60 Lipase 30.4 TSH Free T4 07/29/16 07/29/16 07/29/16 03:29 07:31 07:31 WBC 12.6 H RBC 2.81 L Hgb 9.2 L Hct 27.2 L MCV 97 MCH 32.6 MCHC 33.6 RDW 14.5 H Plt Count 281 Seg Neutrophils % 89.7 H Lymphocytes % 5.2 L Monocytes % 4.9 Eosinophils % 0.0 Basophils % 0.2 Absolute Neutrophils 11.3 H Absolute Lymphocytes 0.7 Absolute Monocytes 0.6 Absolute Eosinophils 0.0 Absolute Basophils 0.0 Carbonic Acid HCO3/H2CO3 Ratio ABG pH ABG pCO2 ABG pO2 ABG HCO3 ABG O2 Saturation ABG Base Excess VBG pH VBG pCO2 VBG HCO3 VBG Base Excess FiO2 Sodium 139.1 Potassium 3.2 L Chloride 105 Carbon Dioxide 24 Anion Gap 10 BUN 24 H Creatinine 1.09 Est GFR ( Amer) > 60 Est GFR (Non-Af Amer) 53 L Glucose 110 Calcium 6.7 L* Phosphorus Magnesium Total Bilirubin 0.1 L AST 90 H ALT 44 Alkaline Phosphatase 99 Ammonia Total Protein 4.7 L Albumin 2.5 L Amylase Lipase TSH 0.06 L Free T4 1.89 07/29/16 07/29/16 08:35 17:37 WBC RBC Hgb Hct MCV MCH MCHC RDW Plt Count Seg Neutrophils % Lymphocytes % Monocytes % Eosinophils % Basophils % Absolute Neutrophils Absolute Lymphocytes Absolute Monocytes Absolute Eosinophils Absolute Basophils Carbonic Acid 1.42 H 1.18 HCO3/H2CO3 Ratio 16:1 19:1 ABG pH 7.31 L 7.38 ABG pCO2 47.2 H 39.1 ABG pO2 45.1 L 76.5 L ABG HCO3 23.4 22.7 ABG O2 Saturation 76.8 L 95.1 ABG Base Excess -2.7 -2.2 VBG pH VBG pCO2 VBG HCO3 VBG Base Excess FiO2 60% 40% Sodium Potassium Chloride Carbon Dioxide Anion Gap BUN Creatinine Est GFR ( Amer) Est GFR (Non-Af Amer) Glucose Calcium Phosphorus Magnesium Total Bilirubin AST ALT Alkaline Phosphatase Ammonia Total Protein Albumin Amylase Lipase TSH Free T4 07/29/16 07/29/16 07/29/16 03:29 10:05 15:25 CK-MB (CK-2) 39.50 H 32.80 H 21.90 H Troponin I 0.386 0.506 0.421 Impressions: Head CT 07/29/16 00:00 IMPRESSION: NORMAL BRAIN CT WITHOUT CONTRAST. Lines and tubes . Chest X-Ray 07/29/16 12:19 IMPRESSION: Appropriate position of support apparatus. No pneumothorax. Assessment & Plan - Diagnosis (1) Bilateral pneumonia Qualifiers: Pneumonia type: due to unspecified organism Lung location: unspecified part of lung Qualified Code(s): J18.9 - Pneumonia, unspecified organism Is this a current diagnosis for this admission?: YesPlan: Start on IV Levofloxacin and Aztreonam coverage. (2) Respiratory distress Is this a current diagnosis for this admission?: YesPlan: I will maintain on ventilator support. We will attempt to lower Fio2 to less than 50% if her saturation remain satisfactorily above 95%. I will request pulmonary consultation with Dr Portillo, nut sheller machine operator for further input to care. (3) Septic shock Is this a current diagnosis for this admission?: YesPlan: Maintain on pressor and IV fluid support. Adjust IV propofol usage as blood pressure permits. (4) Respiratory acidosis Is this a current diagnosis for this admission?: YesPlan: Maintain on ventilator support and adjust parameters to assist in correcting her underlying pathologic process. (5) Acute hypercapnic respiratory failure Is this a current diagnosis for this admission?: YesPlan: Continue ventilator support and treat underlying pathology including pneumonia, Asthma, and possible COPD. (6) CML (chronic myelocytic leukemia) Is this a current diagnosis for this admission?: YesPlan: Review therapy with Dr Arriola when medically stable. - Time Time Spent: 50 to 70 Minutes Medications reviewed and adjusted accordingly: Yes Anticipated discharge: Other Within: Other - Inpatient Certification Medical Necessity: Need Close Monitoring Due to Risk of Patient Decompensation, Need For IV Fluids, Need For Continuous Telemetry Monitoring, Need for IV Antibiotics, Risk of Complication if Not Cared For in Hospital Post Hospital Care: D/C Leather Cleaner Documentation - Plan Summary Plan Summary: Admit to ICU and manage appropriately. See admitting physician orders for details.
[2016-07-29] MEDS ORDERED: PHYTONADIONE INJ 10 MG/1 ML AMPULE SUBCUT ONE (21:00)
[2016-07-30] MEDS: DEXTROSE 5%-WATER 250 ML with NOREPINEPHRINE BITARTRATE 4 MG IV PRN ×4 (00:12→15:36)
[2016-07-30] MEDS: PROPOFOL 100 ML IV PRN ×5 (02:04→23:08)
[2016-07-30] MEDS: NORMAL SALINE 1000 ML 1,000 ML IV PRN (03:02)
[2016-07-30] MEDS: LANSOPRAZOLE 30 MG TAB.RAP.DR PO SCH ×2 (05:12→17:20)
[2016-07-30 05:58] LABS: ABSOLUTE EOSINOPHILS # (AUTO) 0.1 10^3/uL (0.0-0.6); ABSOLUTE LYMPHOCYTES (AUTO) 0.7 10^3/uL (0.5-4.7); ABSOLUTE MONOCYTES (AUTO) 0.5 10^3/uL (0.1-1.4); ABSOLUTE NEUT (AUTO) 8.9 10^3/uL (1.7-8.2); BASOPHILS % (AUTO) 0.4 % (0-2); EOSINOPHILS % (AUTO) 1.2 % (0-6); HEMATOCRIT 25.8 % (36.0-47.0); HEMOGLOBIN 8.6 g/dL (12.0-15.5); MEAN CORPUSCULAR HEMOGLOBIN 32.8 pg (27.0-33.4); MEAN CORPUSCULAR HGB CONC 33.4 g/dL (32.0-36.0); MEAN CORPUSCULAR VOLUME 98 fl (80-97); MONOCYTES % (AUTO) 4.8 % (3-13); PROTHROMBIN TIME 17.6 SEC (11.4-15.4); RED BLOOD COUNT 2.63 10^6/uL (3.72-5.28); RED CELL DISTRIBUTION WIDTH 14.6 % (11.5-14.0); SEGMENTED NEUTROPHILS % (AUTO) 86.6 % (42-78); WHITE BLOOD COUNT 10.3 10^3/uL (4.0-10.5)
[2016-07-30 06:07] LABS: ALANINE AMINOTRANSFERASE 40 U/L (9-52); ALBUMIN 2.3 g/dL (3.5-5.0); ALKALINE PHOSPHATASE 93 U/L (38-126); ANION GAP 8 (5-19); ASPARTATE AMINO TRANSFERASE 54 U/L (14-36); BLOOD UREA NITROGEN 14 mg/dL (7-20); CALCIUM 8.3 mg/dL (8.4-10.2); CARBON DIOXIDE 25 mmol/L (22-30); CHLORIDE 105 mmol/L (98-107); CREATININE RESULT 0.89 mg/dL (0.52-1.25); GLUCOSE 104 mg/dL (75-110); SODIUM 137.5 mmol/L (137-145); TOTAL PROTEIN 4.4 g/dL (6.3-8.2)
[2016-07-30 06:13] LABS: BILIRUBIN,TOTAL < 0.1 mg/dL (0.2-1.3)
[2016-07-30] MEDS: AZTREONAM 1 GM in DEXTROSE 5%-WATER 50 ML IV SCH ×3 (08:05→22:07)
[2016-07-30] MEDS: POTASSI CL 20 MEQ/50 ML RIDER 50 ML IV SCH ×2 (08:06→10:27)
[2016-07-30 08:12] LABS: ARTERIAL BLOOD BASE EXCESS -1.2 mmol/L; ARTERIAL BLOOD O2 SATURATION 96.8 % (94-98)
--- NOTE | 2016-07-30 08:16 | EKG REPORT ---
SEVERITY:- BORDERLINE ECG - SINUS RHYTHM ATRIAL PREMATURE COMPLEX POOR R PROGRESSION ANTERIOR PRECORDIAL LEADS. : Confirmed by: John Paul Weathers MD 30-Jul-2016 08:15:34
[2016-07-30] MEDS: LEVETIRACETAM 500 MG TABLET GT SCH ×2 (09:16→17:20)
[2016-07-30] MEDS: LEVOTHYROXINE SODIUM 0.1 MG TABLET NG SCH (09:16)
[2016-07-30] MEDS ORDERED: LEVOFLOXACIN 750 MG/D5W RTU 750 MG/150 ML RTUPB IV SCH ×2 (10:00→23:00)
--- NOTE | 2016-07-30 11:17 | PDOC PROGRESS REPORT ---
Subjective Progress Note for:: 07/30/16 Subjective:: Intubated and sedated Physical Exam Vital Signs: Temp Pulse Resp BP Pulse Ox 99.7 F 77 20 136/76 H 96 07/30/16 08:00 07/30/16 10:00 07/30/16 10:00 07/30/16 10:00 07/30/16 10:00 Intake & Output 07/29/16 07/30/16 07/31/16 06:59 06:59 06:59 Intake Total 437 2794 Output Total 350 2060 450 Balance 87 734 -450 Weight 63.1 kg 64.9 kg General appearance: PRESENT: no acute distress, disheveled, well-developed, well -nourished Head exam: PRESENT: atraumatic, normocephalic Eye exam: PRESENT: conjunctiva pale Mouth exam: PRESENT: moist, neck supple, tongue midline, other - ET tube in place Neck exam: ABSENT: carotid bruit, JVD, lymphadenopathy, thyromegaly Respiratory exam: PRESENT: crackles, decreased breath sounds, prolonged expiratory phas, rhonchi, symmetrical, unlabored Cardiovascular exam: PRESENT: RRR, +S1, +S2 Pulses: PRESENT: normal dorsalis pedis pul GI/Abdominal exam: PRESENT: normal bowel sounds, soft. ABSENT: distended, guarding, mass, organolmegaly, rebound, tenderness Rectal exam: PRESENT: deferred Gentrourinary exam: PRESENT: indwelling catheter Extremities exam: PRESENT: other - Generalized anasarca Skin exam: PRESENT: dry, warm Results Laboratory Results: 07/30/16 05:17 07/30/16 05:17 07/29/16 07/30/16 07/30/16 17:37 05:17 05:17 WBC 10.3 RBC 2.63 L Hgb 8.6 L Hct 25.8 L MCV 98 H MCH 32.8 MCHC 33.4 RDW 14.6 H Plt Count 268 Seg Neutrophils % 86.6 H Lymphocytes % 7.0 L Monocytes % 4.8 Eosinophils % 1.2 Basophils % 0.4 Absolute Neutrophils 8.9 H Absolute Lymphocytes 0.7 Absolute Monocytes 0.5 Absolute Eosinophils 0.1 Absolute Basophils 0.0 Carbonic Acid 1.18 HCO3/H2CO3 Ratio 19:1 ABG pH 7.38 ABG pCO2 39.1 ABG pO2 76.5 L ABG HCO3 22.7 ABG O2 Saturation 95.1 ABG Base Excess -2.2 FiO2 40% Sodium 137.5 Potassium 3.0 L* Chloride 105 Carbon Dioxide 25 Anion Gap 8 BUN 14 Creatinine 0.89 Est GFR ( Amer) > 60 Est GFR (Non-Af Amer) > 60 Glucose 104 Calcium 8.3 L Magnesium Total Bilirubin < 0.1 L AST 54 H ALT 40 Alkaline Phosphatase 93 Total Protein 4.4 L Albumin 2.3 L 07/30/16 07/30/16 05:17 07:45 WBC RBC Hgb Hct MCV MCH MCHC RDW Plt Count Seg Neutrophils % Lymphocytes % Monocytes % Eosinophils % Basophils % Absolute Neutrophils Absolute Lymphocytes Absolute Monocytes Absolute Eosinophils Absolute Basophils Carbonic Acid 1.04 L HCO3/H2CO3 Ratio 21:1 ABG pH 7.44 ABG pCO2 34.5 L ABG pO2 85.1 ABG HCO3 22.7 ABG O2 Saturation 96.8 ABG Base Excess -1.2 FiO2 40% Sodium Potassium Chloride Carbon Dioxide Anion Gap BUN Creatinine Est GFR ( Amer) Est GFR (Non-Af Amer) Glucose Calcium Magnesium 2.2 Total Bilirubin AST ALT Alkaline Phosphatase Total Protein Albumin 07/29/16 07/29/16 07/29/16 03:29 10:05 15:25 CK-MB (CK-2) 39.50 H 32.80 H 21.90 H Troponin I 0.386 0.506 0.421 Impressions: Head CT 07/29/16 00:00 IMPRESSION: NORMAL BRAIN CT WITHOUT CONTRAST. Lines and tubes . Chest X-Ray 07/30/16 06:00 IMPRESSION: Appropriate lines and tubes. Similar appearance of the chest with low lung volumes and areas of bilateral airspace disease. Assessment & Plan - Diagnosis (1) Bilateral pneumonia Qualifiers: Pneumonia type: due to unspecified organism Lung location: unspecified part of lung Qualified Code(s): J18.9 - Pneumonia, unspecified organism Is this a current diagnosis for this admission?: YesPlan: no positive cultures WBC within normal limits mild left shift (2) Septic shock Is this a current diagnosis for this admission?: YesPlan: Continues requiring vasopressor agents (3) COPD (chronic obstructive pulmonary disease) Qualifiers: COPD type: unspecified COPD Qualified Code(s): J44.9 - Chronic obstructive pulmonary disease, unspecified Is this a current diagnosis for this admission?: YesPlan: Continue current bronchodilator therapy (4) Leukemia Is this a current diagnosis for this admission?: No - Time Critical Time spent with patient: 25-34 minutes
[2016-07-30] MEDS ORDERED: MORPHINE SULFATE IV PRN (12:17)
[2016-07-30] MEDS: VANCOMYCIN HCL 1,000 MG in DEXTROSE 5%-WATER 250 ML IV SCH (12:42)
[2016-07-30] MEDS: OXYCODONE HCL IR 5 MG TABLET NG SCH ×2 (13:31→22:07)
[2016-07-30] MEDS: LEVOFLOXACIN 750 MG/D5W RTU 750 MG/150 ML RTUPB IV SCH (17:20)
[2016-07-30] MEDS: POTASSIUM CHLORIDE 20 MEQ/50 ML RTU IV SCH ×2 (20:49→22:07)
--- NOTE | 2016-07-30 22:27 | PDOC PROGRESS REPORT ---
Subjective Progress Note for:: 07/30/16 Subjective:: Patient remain intubated, sedated, and vent supported. No reported fever. Remain on IV fluid and vasopressor support due to septic shock process. There is concern for hypokalemia on this am lab result. There was reported excessive anticoagulation state with need for Vitamin K administration since last clinical assessment. Physical Exam Vital Signs: Temp Pulse Resp BP Pulse Ox 99.1 F 89 20 104/59 L 97 07/30/16 16:00 07/30/16 20:31 07/30/16 21:44 07/30/16 21:44 07/30/16 21:44 Intake & Output 07/29/16 07/30/16 07/31/16 06:59 06:59 06:59 Intake Total 437 2794 1430 Output Total 350 2060 1475 Balance 87 734 -45 Weight 63.1 kg 64.9 kg Physical Exam: Intubated and sedated presently with soft wrist restraints in use. General appearance: PRESENT: obese Head exam: PRESENT: atraumatic, normocephalic Eye exam: PRESENT: PERRLA. ABSENT: conjunctival injection, conjunctiva pink, conjunctiva pale, EOMI, nystagmus, periorbital swelling, scleral icterus, other Mouth exam: PRESENT: other - ET and OG tubes in situ. Respiratory exam: PRESENT: crackles, decreased breath sounds, prolonged expiratory phas, rhonchi, unlabored Cardiovascular exam: PRESENT: RRR. ABSENT: diastolic murmur, rubs, systolic murmur Pulses: PRESENT: normal dorsalis pedis pul, +2 pedal pulses bilateral Vascular exam: PRESENT: normal capillary refill GI/Abdominal exam: PRESENT: normal bowel sounds, soft. ABSENT: distended, guarding, mass, organolmegaly, rebound, tenderness Rectal exam: PRESENT: deferred Gentrourinary exam: PRESENT: indwelling catheter Extremities exam: PRESENT: full ROM Neurological exam: PRESENT: other - sedated, withdraw to painful stimuli. Skin exam: PRESENT: dry, intact, warm. ABSENT: cyanosis, rash Results Laboratory Results: 07/30/16 05:17 07/30/16 17:30 07/30/16 07/30/16 07/30/16 05:17 05:17 05:17 WBC 10.3 RBC 2.63 L Hgb 8.6 L Hct 25.8 L MCV 98 H MCH 32.8 MCHC 33.4 RDW 14.6 H Plt Count 268 Seg Neutrophils % 86.6 H Lymphocytes % 7.0 L Monocytes % 4.8 Eosinophils % 1.2 Basophils % 0.4 Absolute Neutrophils 8.9 H Absolute Lymphocytes 0.7 Absolute Monocytes 0.5 Absolute Eosinophils 0.1 Absolute Basophils 0.0 Carbonic Acid HCO3/H2CO3 Ratio ABG pH ABG pCO2 ABG pO2 ABG HCO3 ABG O2 Saturation ABG Base Excess FiO2 Sodium 137.5 Potassium 3.0 L* Chloride 105 Carbon Dioxide 25 Anion Gap 8 BUN 14 Creatinine 0.89 Est GFR ( Amer) > 60 Est GFR (Non-Af Amer) > 60 Glucose 104 Calcium 8.3 L Magnesium 2.2 Total Bilirubin < 0.1 L AST 54 H ALT 40 Alkaline Phosphatase 93 Total Protein 4.4 L Albumin 2.3 L 07/30/16 07/30/16 07:45 17:30 WBC RBC Hgb Hct MCV MCH MCHC RDW Plt Count Seg Neutrophils % Lymphocytes % Monocytes % Eosinophils % Basophils % Absolute Neutrophils Absolute Lymphocytes Absolute Monocytes Absolute Eosinophils Absolute Basophils Carbonic Acid 1.04 L HCO3/H2CO3 Ratio 21:1 ABG pH 7.44 ABG pCO2 34.5 L ABG pO2 85.1 ABG HCO3 22.7 ABG O2 Saturation 96.8 ABG Base Excess -1.2 FiO2 40% Sodium Potassium 3.3 L Chloride Carbon Dioxide Anion Gap BUN Creatinine Est GFR ( Amer) Est GFR (Non-Af Amer) Glucose Calcium Magnesium Total Bilirubin AST ALT Alkaline Phosphatase Total Protein Albumin 07/29/16 06:00 Nasophary (Mrs[facility] Only) MRSA Surveillance Culture - Final MRSA RECOVERED 07/29/16 07/29/16 07/29/16 03:29 10:05 15:25 CK-MB (CK-2) 39.50 H 32.80 H 21.90 H Troponin I 0.386 0.506 0.421 Impressions: Head CT 07/29/16 00:00 IMPRESSION: NORMAL BRAIN CT WITHOUT CONTRAST. Lines and tubes . Chest X-Ray 07/30/16 06:00 IMPRESSION: Appropriate lines and tubes. Similar appearance of the chest with low lung volumes and areas of bilateral airspace disease. Assessment & Plan - Diagnosis (1) Bilateral pneumonia Qualifiers: Pneumonia type: due to unspecified organism Lung location: unspecified part of lung Qualified Code(s): J18.9 - Pneumonia, unspecified organism Is this a current diagnosis for this admission?: Yes (2) Respiratory distress Is this a current diagnosis for this admission?: Yes (3) Septic shock Is this a current diagnosis for this admission?: YesPlan: Maintain on IV antibiotic therapy with Levaquin, Aztreonam, and Vancomycin. Maintain on vasopressor and IV fluid support. Adjust IV propofol usage as blood pressure permits. (4) Respiratory acidosis Is this a current diagnosis for this admission?: Yes (5) Acute hypercapnic respiratory failure Is this a current diagnosis for this admission?: Yes (6) CML (chronic myelocytic leukemia) Is this a current diagnosis for this admission?: Yes (7) Hypokalemia due to loss of potassium Is this a current diagnosis for this admission?: YesPlan: Patient will receive 40 mEq Potassium chloride via IV K-rider. Obtain serum magnesium level for possible need of replacement in view of her persistent hypokalemia. (8) MRSA (methicillin resistant Staphylococcus aureus) carrier Is this a current diagnosis for this admission?: YesPlan: Continue IV Vancomycin coverage pending final sputum culture findings. (9) Excessive anticoagulation Is this a current diagnosis for this admission?: YesPlan: Continue to monitor coagulation study. Probably due to ongoing sepsis. - Time Time Spent with patient: 25-34 minutes Medications reviewed and adjusted accordingly: Yes Anticipated discharge: Home with Homehealth Within: Other - Inpatient Certification Medical Necessity: Need Close Monitoring Due to Risk of Patient Decompensation, Need For IV Fluids, Need for IV Antibiotics, Risk of Complication if Not Cared For in Hospital, Risk of Diagnosis Which Will Require Inpatient Eval/Care/ Monitoring Post Hospital Care: D/C Clothing Manager Documentation - Plan Summary Plan Summary: Please see attending physician orders.
[2016-07-31] MEDS: NORMAL SALINE 1000 ML 1,000 ML IV PRN (02:27)
[2016-07-31] MEDS: PROPOFOL 100 ML IV PRN ×6 (02:28→23:48)
[2016-07-31] MEDS: MORPHINE SULFATE 10 MG/ML INJ IV PRN ×2 (02:28→22:54)
[2016-07-31] MEDS: IPRATROPIUM/ALBUTEROL 0.5-2.5 MG/3 ML AMPUL NEB PRN ×3 (03:13→19:54)
[2016-07-31] MEDS: OXYCODONE HCL IR 5 MG TABLET NG SCH ×3 (05:47→22:10)
[2016-07-31] MEDS: LANSOPRAZOLE 30 MG TAB.RAP.DR PO SCH ×2 (05:47→17:38)
[2016-07-31 05:48] LABS: ARTERIAL BLOOD BASE EXCESS 0.4 mmol/L; ARTERIAL BLOOD O2 SATURATION 98.2 % (94-98)
[2016-07-31] MEDS: AZTREONAM 1 GM in DEXTROSE 5%-WATER 50 ML IV SCH ×3 (05:48→22:11)
[2016-07-31 05:58] LABS: ABSOLUTE EOSINOPHILS # (AUTO) 0.2 10^3/uL (0.0-0.6); ABSOLUTE LYMPHOCYTES (AUTO) 0.8 10^3/uL (0.5-4.7); ABSOLUTE MONOCYTES (AUTO) 0.5 10^3/uL (0.1-1.4); ABSOLUTE NEUT (AUTO) 8.6 10^3/uL (1.7-8.2); BASOPHILS % (AUTO) 0.5 % (0-2); EOSINOPHILS % (AUTO) 2.2 % (0-6); HEMATOCRIT 25.2 % (36.0-47.0); HEMOGLOBIN 8.4 g/dL (12.0-15.5); LYMPHOCYTES % (AUTO) 7.5 % (13-45); MEAN CORPUSCULAR HEMOGLOBIN 32.5 pg (27.0-33.4); MEAN CORPUSCULAR HGB CONC 33.4 g/dL (32.0-36.0); MEAN CORPUSCULAR VOLUME 97 fl (80-97); MONOCYTES % (AUTO) 5.4 % (3-13); RED BLOOD COUNT 2.59 10^6/uL (3.72-5.28); RED CELL DISTRIBUTION WIDTH 14.3 % (11.5-14.0); SEGMENTED NEUTROPHILS % (AUTO) 84.4 % (42-78); WHITE BLOOD COUNT 10.2 10^3/uL (4.0-10.5)
[2016-07-31 06:02] LABS: PROTHROMBIN TIME 14.7 SEC (11.4-15.4)
[2016-07-31 06:03] LABS: ALANINE AMINOTRANSFERASE 35 U/L (9-52); ALBUMIN 2.2 g/dL (3.5-5.0); ALKALINE PHOSPHATASE 87 U/L (38-126); ANION GAP 6 (5-19); ASPARTATE AMINO TRANSFERASE 31 U/L (14-36); BILIRUBIN,TOTAL 0.1 mg/dL (0.2-1.3); BLOOD UREA NITROGEN 11 mg/dL (7-20); CALCIUM 8.4 mg/dL (8.4-10.2); CARBON DIOXIDE 25 mmol/L (22-30); CHLORIDE 106 mmol/L (98-107); CREATININE RESULT 0.79 mg/dL (0.52-1.25); GLUCOSE 125 mg/dL (75-110); MAGNESIUM 2.1 mg/dL (1.6-2.3); PARTIAL THROMBOPLASTIN TIME 39.2 SEC (23.5-35.8); POTASSIUM 3.6 mmol/L (3.6-5.0); SODIUM 137.3 mmol/L (137-145); TOTAL PROTEIN 4.4 g/dL (6.3-8.2); TRIGLYCERIDES 428 mg/dL (<150)
--- NOTE | 2016-07-31 08:11 | PDOC PROGRESS REPORT ---
Subjective Progress Note for:: 07/31/16 Subjective:: Remain intubated, sedated and vent supported. Started on enteral tube feeding with Oxepa since last clinical evaluation. There is gradual down grade of her Fio2 support. Currently at 35%. No reported significant reported fever. Physical Exam Vital Signs: Temp Pulse Resp BP Pulse Ox 99.1 F 80 20 114/57 L 97 07/30/16 16:00 07/31/16 03:15 07/31/16 06:00 07/31/16 05:59 07/31/16 06:00 Intake & Output 07/30/16 07/31/16 08/01/16 06:59 06:59 06:59 Intake Total 2794 2632 Output Total 2060 2250 Balance 734 382 Weight 64.9 kg 64.3 kg Physical Exam: ET and OG tubes in situ. Head exam: PRESENT: atraumatic, normocephalic Eye exam: PRESENT: PERRLA Mouth exam: PRESENT: moist Respiratory exam: PRESENT: crackles - improving, decreased breath sounds, rhonchi - improving, wheezes - resolved with bronchodilator therapy. Cardiovascular exam: PRESENT: RRR. ABSENT: diastolic murmur, rubs, systolic murmur Pulses: PRESENT: normal dorsalis pedis pul, +2 pedal pulses bilateral GI/Abdominal exam: PRESENT: normal bowel sounds, soft. ABSENT: distended, guarding, mass, organolmegaly, rebound, tenderness Extremities exam: PRESENT: full ROM, pedal edema - minimal. Musculoskeletal exam: PRESENT: full ROM, normal inspection Neurological exam: PRESENT: other - sedated with propofol but withdraw from painful stimuli. Skin exam: PRESENT: dry, intact, warm. ABSENT: cyanosis, rash Results Laboratory Results: 07/31/16 05:35 07/31/16 05:35 07/30/16 07/30/16 07/31/16 07:45 17:30 05:35 WBC RBC Hgb Hct MCV MCH MCHC RDW Plt Count Seg Neutrophils % Lymphocytes % Monocytes % Eosinophils % Basophils % Absolute Neutrophils Absolute Lymphocytes Absolute Monocytes Absolute Eosinophils Absolute Basophils Carbonic Acid 1.04 L 1.13 HCO3/H2CO3 Ratio 21:1 21:1 ABG pH 7.44 7.44 ABG pCO2 34.5 L 37.4 ABG pO2 85.1 111.5 H ABG HCO3 22.7 24.5 ABG O2 Saturation 96.8 98.2 H ABG Base Excess -1.2 0.4 FiO2 40% 40% Sodium Potassium 3.3 L Chloride Carbon Dioxide Anion Gap BUN Creatinine Est GFR ( Amer) Est GFR (Non-Af Amer) Glucose Calcium Magnesium Total Bilirubin AST ALT Alkaline Phosphatase Total Protein Albumin Triglycerides 07/31/16 07/31/16 05:35 05:35 WBC 10.2 RBC 2.59 L Hgb 8.4 L Hct 25.2 L MCV 97 MCH 32.5 MCHC 33.4 RDW 14.3 H Plt Count 228 Seg Neutrophils % 84.4 H Lymphocytes % 7.5 L Monocytes % 5.4 Eosinophils % 2.2 Basophils % 0.5 Absolute Neutrophils 8.6 H Absolute Lymphocytes 0.8 Absolute Monocytes 0.5 Absolute Eosinophils 0.2 Absolute Basophils 0.0 Carbonic Acid HCO3/H2CO3 Ratio ABG pH ABG pCO2 ABG pO2 ABG HCO3 ABG O2 Saturation ABG Base Excess FiO2 Sodium 137.3 Potassium 3.6 Chloride 106 Carbon Dioxide 25 Anion Gap 6 BUN 11 Creatinine 0.79 Est GFR ( Amer) > 60 Est GFR (Non-Af Amer) > 60 Glucose 125 H Calcium 8.4 Magnesium 2.1 Total Bilirubin 0.1 L AST 31 ALT 35 Alkaline Phosphatase 87 Total Protein 4.4 L Albumin 2.2 L Triglycerides 428 H 07/29/16 05:50 Tracheal Aspirate Gram Stain - Final 07/29/16 06:00 Nasophary (Mrsa Only) MRSA Surveillance Culture - Final MRSA RECOVERED 07/29/16 07/29/16 07/29/16 03:29 10:05 15:25 CK-MB (CK-2) 39.50 H 32.80 H 21.90 H Troponin I 0.386 0.506 0.421 Impressions: Head CT 07/29/16 00:00 IMPRESSION: NORMAL BRAIN CT WITHOUT CONTRAST. Lines and tubes . Chest X-Ray 07/31/16 06:00 IMPRESSION: On the current study the tip of the endotracheal tube is identified at the level of the fatmata. The previously described patchy airspace densities appear slightly less confluent in the left lung base. Other findings as noted above Assessment & Plan - Diagnosis (1) Bilateral pneumonia Qualifiers: Pneumonia type: due to unspecified organism Lung location: unspecified part of lung Qualified Code(s): J18.9 - Pneumonia, unspecified organism Is this a current diagnosis for this admission?: YesPlan: Improving left basilar air space disease process. Tracheal aspirate culture suggested gram positive cocci in clusters with chana species and absence of normal yaakov. (2) Respiratory distress Is this a current diagnosis for this admission?: Yes (3) Septic shock Is this a current diagnosis for this admission?: YesPlan: Continue trip antibiotic coverage. Questionable chana colonization. If no response to current antibiotic therapy or need for prolong intubation we will consider addition of anti fungal therapy. (4) Respiratory acidosis Is this a current diagnosis for this admission?: Yes (5) Acute hypercapnic respiratory failure Is this a current diagnosis for this admission?: Yes (6) CML (chronic myelocytic leukemia) Is this a current diagnosis for this admission?: Yes (7) Hypokalemia due to loss of potassium Is this a current diagnosis for this admission?: YesPlan: Marginally improved to 3.6. Patient reji receive enteral administration of potassium 40 mEq x 1 dose today. (8) MRSA (methicillin resistant Staphylococcus aureus) carrier Is this a current diagnosis for this admission?: Yes (9) Excessive anticoagulation Is this a current diagnosis for this admission?: Yes - Time Time Spent with patient: 25-34 minutes Medications reviewed and adjusted accordingly: Yes Anticipated discharge: Home with Homehealth - Inpatient Certification Medical Necessity: Need Close Monitoring Due to Risk of Patient Decompensation, Need For IV Fluids, Need For Continuous Telemetry Monitoring, Need for IV Antibiotics, Risk of Complication if Not Cared For in Hospital, Risk of Diagnosis Which Will Require Inpatient Eval/Care/Monitoring Post Hospital Care: D/C Lead Network Architect Documentation - Plan Summary Plan Summary: See attending physician orders for details.
[2016-07-31] MEDS ORDERED: POTASSIUM CHLORIDE 20 MEQ/15 ML UDCUP GT ONE (09:00)
[2016-07-31] MEDS: LEVETIRACETAM 500 MG TABLET GT SCH ×2 (09:04→17:38)
[2016-07-31] MEDS: LEVOTHYROXINE SODIUM 0.1 MG TABLET NG SCH (09:04)
[2016-07-31] MEDS ORDERED: INFLUENZA ADLT QUAD (36MOS+) 2016-17 VAC 0.5 ML SYR IM PRN (09:55)
[2016-07-31] MEDS: VANCOMYCIN HCL 1,000 MG in DEXTROSE 5%-WATER 250 ML IV SCH (11:16)
[2016-07-31] MEDS: DEXTROSE 5%-WATER 250 ML with NOREPINEPHRINE BITARTRATE 4 MG IV PRN ×2 (14:23)
--- NOTE | 2016-07-31 17:14 | XCELERA REPORT ---
[address] [address] Transthoracic Echocardiogram Report Name: LAURIE SHEPARD Age: 50 yrs Gender: Female : 1965 Patient Status: Inpatient Patient Location: ICU\S\610\S\A Study Date: 07/30/2016 01:15 PM Height: 64 in Weight: 143 lb BSA: 1.7 m2 Procedure: A two-dimensional transthoracic echocardiogram with color flow and Doppler was performed. Study Quality: Fair. Reason For Study: sepsis History: sepsis. Ordering Physician: LINDA HAMM Performed By: Rosemary Hernandez Interpretation Summary The left ventricle is normal in size. There is normal left ventricular wall thickness. Left ventricular systolic function is normal. LV EF is 60% Doppler measurements suggest impaired left ventricular relaxation, which is associated with grade I/IV or mild diastolic dysfunction The left ventricular wall motion is normal. There is no thrombus. There is no ventricular septal defect visualized. The left atrial size is normal. There is no evidence of mitral valve prolapse. There is no vegetation seen on the mitral valve. There is no mitral valve stenosis. There is a trace amount of mitral regurgitation There is mild aortic sclerosis without stenosis. No aortic regurgitation is present. There is no tricuspid stenosis. There is a trace amount of tricuspid regurgitation Insufficient TR jet to calculate RVSP. There is no pulmonic valvular stenosis. There is no pulmonic valvular regurgitation. There is no pericardial effusion. MMode/2D Measurements \T\ Calculations RVDd: 2.6 cm LVIDd: 4.7 cmFS: 32.4 % Ao root diam: 3.1 cm IVSd: 1.1 cm LVIDs: 3.2 cmEDV(Teich): 102.5 ml LVPWd: 1.1 cmESV(Teich): 40.3 ml Ao root area: 7.7 cm2 EF(Teich): 60.7 % LA dimension: 3.8 cm LVOT diam: 2.1 cm LVOT area: 3.4 cm2 Doppler Measurements \T\ Calculations MV E max devorah: MV P1/2t max devorah: Ao V2 max: LV V1 max P.2 cm/sec 76.8 cm/sec 246.5 cm/sec 9.9 mmHg MV A max devorah: MV P1/2t: 46.0 msec Ao max PG: LV V1 max: 115.2 cm/sec MVA(P1/2t): 4.8 cm2 24.3 mmHg 157.3 cm/sec MV E/A: 0.66 MV dec slope: DOMINIC(V,D): 2.2 cm2 489.0 cm/sec2 MV dec time: 0.15 sec PA V2 max: 119.7 cm/sec PA max P.7 mmHg Left Ventricle The left ventricle is normal in size. There is normal left ventricular wall thickness. Left ventricular systolic function is normal. LV EF is 60%. Doppler measurements suggest impaired left ventricular relaxation, which is associated with grade I/IV or mild diastolic dysfunction. The left ventricular wall motion is normal. There is no thrombus. There is no ventricular septal defect visualized. Right Ventricle The right ventricle is normal in size and function. Atria The right atrium is normal. The left atrial size is normal. The interatrial septum is intact with no evidence for an atrial septal defect. Mitral Valve There is mild mitral annular calcification. There is no evidence of mitral valve prolapse. There is no vegetation seen on the mitral valve. There is no mitral valve stenosis. There is a trace amount of mitral regurgitation. Aortic Valve The aortic valve is trileaflet. The aortic valve opens well. There is no aortic valvular vegetation. There is no aortic valve stenosis. There is no LVOT obstruction. There is mild aortic sclerosis without stenosis. No aortic regurgitation is present. Tricuspid Valve There is no tricuspid stenosis. There is a trace amount of tricuspid regurgitation. Insufficient TR jet to calculate RVSP. Pulmonic Valve There is no pulmonic valvular stenosis. There is no pulmonic valvular regurgitation. Great Vessels The aortic root is normal size. Effusions There is no pericardial effusion. : LINDA HAMM > Viv Reese
[2016-07-31] MEDS: LEVOFLOXACIN 750 MG/D5W RTU 750 MG/150 ML RTUPB IV SCH (17:37)
--- NOTE | 2016-07-31 19:08 | PDOC PROGRESS REPORT ---
Subjective Progress Note for:: 07/31/16 Subjective:: Intubated and sedated Physical Exam Vital Signs: Temp Pulse Resp BP Pulse Ox 99.1 F 80 20 114/57 L 97 07/30/16 16:00 07/31/16 03:15 07/31/16 06:00 07/31/16 05:59 07/31/16 06:00 Intake & Output 07/30/16 07/31/16 08/01/16 06:59 06:59 06:59 Intake Total 2794 2632 Output Total 2060 2250 Balance 734 382 Weight 64.9 kg 64.3 kg General appearance: PRESENT: no acute distress, disheveled Head exam: PRESENT: atraumatic, normocephalic Eye exam: PRESENT: conjunctiva pale Mouth exam: PRESENT: dry mucosa, neck supple, tongue midline, other - ET tube in place Neck exam: ABSENT: carotid bruit, JVD, lymphadenopathy, thyromegaly Respiratory exam: PRESENT: decreased breath sounds, prolonged expiratory phas, rales, rhonchi, symmetrical, unlabored Cardiovascular exam: PRESENT: RRR, +S1, +S2 Pulses: PRESENT: normal radial pulses GI/Abdominal exam: PRESENT: normal bowel sounds, soft. ABSENT: distended, guarding, mass, organolmegaly, rebound, tenderness Rectal exam: PRESENT: deferred Gentrourinary exam: PRESENT: indwelling catheter Extremities exam: PRESENT: +1 edema Skin exam: PRESENT: dry, warm Results Laboratory Results: 07/31/16 05:35 07/31/16 05:35 07/30/16 07/31/16 07/31/16 17:30 05:35 05:35 WBC 10.2 RBC 2.59 L Hgb 8.4 L Hct 25.2 L MCV 97 MCH 32.5 MCHC 33.4 RDW 14.3 H Plt Count 228 Seg Neutrophils % 84.4 H Lymphocytes % 7.5 L Monocytes % 5.4 Eosinophils % 2.2 Basophils % 0.5 Absolute Neutrophils 8.6 H Absolute Lymphocytes 0.8 Absolute Monocytes 0.5 Absolute Eosinophils 0.2 Absolute Basophils 0.0 Carbonic Acid 1.13 HCO3/H2CO3 Ratio 21:1 ABG pH 7.44 ABG pCO2 37.4 ABG pO2 111.5 H ABG HCO3 24.5 ABG O2 Saturation 98.2 H ABG Base Excess 0.4 FiO2 40% Sodium Potassium 3.3 L Chloride Carbon Dioxide Anion Gap BUN Creatinine Est GFR ( Amer) Est GFR (Non-Af Amer) Glucose Calcium Magnesium Total Bilirubin AST ALT Alkaline Phosphatase Total Protein Albumin Triglycerides 07/31/16 05:35 WBC RBC Hgb Hct MCV MCH MCHC RDW Plt Count Seg Neutrophils % Lymphocytes % Monocytes % Eosinophils % Basophils % Absolute Neutrophils Absolute Lymphocytes Absolute Monocytes Absolute Eosinophils Absolute Basophils Carbonic Acid HCO3/H2CO3 Ratio ABG pH ABG pCO2 ABG pO2 ABG HCO3 ABG O2 Saturation ABG Base Excess FiO2 Sodium 137.3 Potassium 3.6 Chloride 106 Carbon Dioxide 25 Anion Gap 6 BUN 11 Creatinine 0.79 Est GFR ( Amer) > 60 Est GFR (Non-Af Amer) > 60 Glucose 125 H Calcium 8.4 Magnesium 2.1 Total Bilirubin 0.1 L AST 31 ALT 35 Alkaline Phosphatase 87 Total Protein 4.4 L Albumin 2.2 L Triglycerides 428 H 07/29/16 05:50 Tracheal Aspirate Gram Stain - Final 07/29/16 06:00 Nasophary (Mrsa Only) MRSA Surveillance Culture - Final MRSA RECOVERED 07/29/16 07/29/16 07/29/16 03:29 10:05 15:25 CK-MB (CK-2) 39.50 H 32.80 H 21.90 H Troponin I 0.386 0.506 0.421 Impressions: Head CT 07/29/16 00:00 IMPRESSION: NORMAL BRAIN CT WITHOUT CONTRAST. Lines and tubes . Chest X-Ray 07/31/16 06:00 IMPRESSION: On the current study the tip of the endotracheal tube is identified at the level of the fatmata. The previously described patchy airspace densities appear slightly less confluent in the left lung base. Other findings as noted above Assessment & Plan - Diagnosis (1) Bilateral pneumonia Qualifiers: Pneumonia type: due to unspecified organism Lung location: unspecified part of lung Qualified Code(s): J18.9 - Pneumonia, unspecified organism Is this a current diagnosis for this admission?: YesPlan: gram positive tracheal aspirates WBC within normal limits mild left shift xray slightly improved (2) Septic shock Is this a current diagnosis for this admission?: No (3) COPD (chronic obstructive pulmonary disease) Qualifiers: COPD type: unspecified COPD Qualified Code(s): J44.9 - Chronic obstructive pulmonary disease, unspecified Is this a current diagnosis for this admission?: YesPlan: Continue current bronchodilator therapy (4) Leukemia Is this a current diagnosis for this admission?: No - Time Critical Time spent with patient: 25-34 minutes
[2016-08-01] MEDS: PROPOFOL 100 ML IV PRN ×2 (04:27→06:35)
[2016-08-01] MEDS: AZTREONAM 1 GM in DEXTROSE 5%-WATER 50 ML IV SCH ×2 (05:38→13:40)
[2016-08-01] MEDS: NORMAL SALINE 1000 ML 1,000 ML IV PRN (05:38)
[2016-08-01] MEDS: OXYCODONE HCL IR 5 MG TABLET NG SCH ×3 (05:39→22:38)
[2016-08-01] MEDS: LANSOPRAZOLE 30 MG TAB.RAP.DR PO SCH ×2 (05:39→17:15)
[2016-08-01 06:09] LABS: ARTERIAL BLOOD BASE EXCESS 1.4 mmol/L
[2016-08-01 06:10] LABS: ABSOLUTE BASOPHILS # (AUTO) 0.1 10^3/uL (0.0-0.2); ABSOLUTE EOSINOPHILS # (AUTO) 0.3 10^3/uL (0.0-0.6); ABSOLUTE LYMPHOCYTES (AUTO) 0.9 10^3/uL (0.5-4.7); ABSOLUTE MONOCYTES (AUTO) 0.6 10^3/uL (0.1-1.4); ABSOLUTE NEUT (AUTO) 6.8 10^3/uL (1.7-8.2); BASOPHILS % (AUTO) 0.6 % (0-2); EOSINOPHILS % (AUTO) 3.7 % (0-6); HEMATOCRIT 23.6 % (36.0-47.0); HGB HCT DIFFERENCE 0.4; LYMPHOCYTES % (AUTO) 10.9 % (13-45); MEAN CORPUSCULAR HEMOGLOBIN 33.2 pg (27.0-33.4); MEAN CORPUSCULAR HGB CONC 33.9 g/dL (32.0-36.0); MEAN CORPUSCULAR VOLUME 98 fl (80-97); MONOCYTES % (AUTO) 6.8 % (3-13); RED BLOOD COUNT 2.41 10^6/uL (3.72-5.28); RED CELL DISTRIBUTION WIDTH 14.5 % (11.5-14.0); WHITE BLOOD COUNT 8.7 10^3/uL (4.0-10.5)
[2016-08-01 06:21] LABS: ALANINE AMINOTRANSFERASE 38 U/L (9-52); ALBUMIN 2.2 g/dL (3.5-5.0); ALKALINE PHOSPHATASE 83 U/L (38-126); ANION GAP 7 (5-19); ASPARTATE AMINO TRANSFERASE 21 U/L (14-36); BLOOD UREA NITROGEN 10 mg/dL (7-20); CALCIUM 8.4 mg/dL (8.4-10.2); CARBON DIOXIDE 26 mmol/L (22-30); CHLORIDE 107 mmol/L (98-107); CREATININE RESULT 0.73 mg/dL (0.52-1.25); GLUCOSE 101 mg/dL (75-110); MAGNESIUM 2.1 mg/dL (1.6-2.3); POTASSIUM 3.7 mmol/L (3.6-5.0); SODIUM 139.6 mmol/L (137-145); TOTAL PROTEIN 4.4 g/dL (6.3-8.2)
[2016-08-01 06:23] LABS: BILIRUBIN,TOTAL < 0.1 mg/dL (0.2-1.3)
[2016-08-01 06:27] LABS: PROTHROMBIN TIME 14.8 SEC (11.4-15.4)
[2016-08-01 06:28] LABS: PARTIAL THROMBOPLASTIN TIME 39.1 SEC (23.5-35.8)
--- NOTE | 2016-08-01 08:17 | PDOC PROGRESS REPORT ---
Subjective Progress Note for:: 08/01/16 Subjective:: Remain intubated, sedated and vent supported. Tolerating enteral tube feeding with Oxepa since last clinical evaluation. There is gradual down grade of her Fio2 support. Currently at 30% with possible extubation today if agreeable with clerical specialist. There is reported single episode of fever over night. Physical Exam Vital Signs: Temp Pulse Resp BP Pulse Ox 98.2 F 80 20 103/68 96 08/01/16 05:51 08/01/16 07:51 08/01/16 06:00 08/01/16 05:45 08/01/16 06:00 Intake & Output 07/31/16 08/01/16 08/02/16 06:59 06:59 06:59 Intake Total 2632 3365 Output Total 2250 3675 Balance 382 -310 Weight 64.3 kg 63.9 kg Physical Exam: Remain intubed, sedated and vent supported. General appearance: PRESENT: other - sedated but arousable to painful stimuli. Head exam: PRESENT: atraumatic, normocephalic Eye exam: PRESENT: conjunctiva pink, EOMI, PERRLA. ABSENT: scleral icterus Mouth exam: PRESENT: moist, other - ET and OG tubes insitu Neck exam: PRESENT: full ROM. ABSENT: carotid bruit, JVD, lymphadenopathy, thyromegaly Respiratory exam: PRESENT: decreased breath sounds. ABSENT: accessory muscle use, chest wall tenderness - at lung bases, clear to auscultation sho, crackles , prolonged expiratory phas, rales, retraction, rhonchi, stridor, symmetrical, tachypnea, unlabored, wheezes, other Cardiovascular exam: PRESENT: RRR. ABSENT: diastolic murmur, rubs, systolic murmur Pulses: PRESENT: normal dorsalis pedis pul, +2 pedal pulses bilateral GI/Abdominal exam: PRESENT: normal bowel sounds, soft. ABSENT: distended, guarding, mass, organolmegaly, rebound, tenderness Extremities exam: PRESENT: full ROM Musculoskeletal exam: PRESENT: full ROM, normal inspection Neurological exam: PRESENT: other - Sedated on IV Propofol but arousable to painful stimuli. Soft wrist restrains in use. Skin exam: PRESENT: dry, intact, warm. ABSENT: cyanosis, rash Results Laboratory Results: 08/01/16 05:45 08/01/16 05:45 08/01/16 08/01/16 08/01/16 05:45 05:45 05:45 WBC 8.7 RBC 2.41 L Hgb 8.0 L Hct 23.6 L MCV 98 H MCH 33.2 MCHC 33.9 RDW 14.5 H Plt Count 214 Seg Neutrophils % 78.0 Lymphocytes % 10.9 L Monocytes % 6.8 Eosinophils % 3.7 Basophils % 0.6 Absolute Neutrophils 6.8 Absolute Lymphocytes 0.9 Absolute Monocytes 0.6 Absolute Eosinophils 0.3 Absolute Basophils 0.1 Carbonic Acid 1.23 HCO3/H2CO3 Ratio 21:1 ABG pH 7.42 ABG pCO2 40.9 ABG pO2 72.9 L ABG HCO3 26.0 ABG O2 Saturation 95.0 ABG Base Excess 1.4 FiO2 30% Sodium 139.6 Potassium 3.7 Chloride 107 Carbon Dioxide 26 Anion Gap 7 BUN 10 Creatinine 0.73 Est GFR ( Amer) > 60 Est GFR (Non-Af Amer) > 60 Glucose 101 Calcium 8.4 Magnesium 2.1 Total Bilirubin < 0.1 L AST 21 ALT 38 Alkaline Phosphatase 83 Total Protein 4.4 L Albumin 2.2 L 07/29/16 05:50 Tracheal Aspirate Gram Stain - Final 07/29/16 07/29/16 07/29/16 03:29 10:05 15:25 CK-MB (CK-2) 39.50 H 32.80 H 21.90 H Troponin I 0.386 0.506 0.421 Impressions: Head CT 07/29/16 00:00 IMPRESSION: NORMAL BRAIN CT WITHOUT CONTRAST. Lines and tubes . Chest X-Ray 08/01/16 06:00 IMPRESSION: No significant interval change. Findings as noted above Assessment & Plan - Diagnosis (1) Bilateral pneumonia Qualifiers: Pneumonia type: due to unspecified organism Lung location: unspecified part of lung Qualified Code(s): J18.9 - Pneumonia, unspecified organism Is this a current diagnosis for this admission?: Yes (2) Respiratory distress Is this a current diagnosis for this admission?: Yes (3) Septic shock Is this a current diagnosis for this admission?: No (4) Respiratory acidosis Is this a current diagnosis for this admission?: Yes (5) Acute hypercapnic respiratory failure Is this a current diagnosis for this admission?: Yes (6) CML (chronic myelocytic leukemia) Is this a current diagnosis for this admission?: Yes (7) Hypokalemia due to loss of potassium Is this a current diagnosis for this admission?: Yes (8) MRSA (methicillin resistant Staphylococcus aureus) carrier Is this a current diagnosis for this admission?: Yes (9) Excessive anticoagulation Is this a current diagnosis for this admission?: Yes - Time Time Spent with patient: 25-34 minutes - Inpatient Certification Medical Necessity: Need Close Monitoring Due to Risk of Patient Decompensation, Need For IV Fluids, Need For Continuous Telemetry Monitoring, Need for IV Antibiotics, Risk of Complication if Not Cared For in Hospital Post Hospital Care: D/C Urologic Surgeon Documentation - Plan Summary Plan Summary: Continue current management. Possible extubation today if clinically pass weaning protocol. Follow up on culture findings. Monitor CBC indices for possible need of PRBC transfusion. See attending orders for further details.
[2016-08-01] MEDS ORDERED: DEXAMETHASONE SOD PHOS INJ 10 MG/1 ML VIAL IV ONE (09:35)
[2016-08-01] MEDS: LEVETIRACETAM 500 MG TABLET GT SCH ×2 (09:57→17:14)
[2016-08-01] MEDS: LEVOTHYROXINE SODIUM 0.1 MG TABLET NG SCH (09:57)
[2016-08-01] MEDS: IPRATROPIUM/ALBUTEROL 0.5-2.5 MG/3 ML AMPUL NEB PRN ×3 (10:13→20:49)
[2016-08-01] MEDS: VANCOMYCIN HCL 1,000 MG in DEXTROSE 5%-WATER 250 ML IV SCH (12:58)
[2016-08-01] MEDS: MORPHINE SULFATE 10 MG/ML INJ IV PRN (17:15)
[2016-08-01] MEDS: VANCOMYCIN HCL 750 MG in DEXTROSE 5%-WATER 250 ML IV SCH (22:37)
[2016-08-01] MEDS: ZOLPIDEM TARTRATE 5 MG TABLET PO SCH (22:38)
[2016-08-02] MEDS: OXYCODONE HCL IR 5 MG TABLET NG SCH ×3 (05:30→21:09)
[2016-08-02] MEDS: LANSOPRAZOLE 30 MG TAB.RAP.DR PO SCH ×2 (05:30→16:46)
[2016-08-02 06:11] LABS: HEMATOCRIT 26.1 % (36.0-47.0); HEMOGLOBIN 8.6 g/dL (12.0-15.5); HGB HCT DIFFERENCE -0.3; MEAN CORPUSCULAR HEMOGLOBIN 32.3 pg (27.0-33.4); MEAN CORPUSCULAR VOLUME 98 fl (80-97); RED BLOOD COUNT 2.67 10^6/uL (3.72-5.28); RED CELL DISTRIBUTION WIDTH 14.8 % (11.5-14.0); WHITE BLOOD COUNT 11.2 10^3/uL (4.0-10.5)
[2016-08-02 06:32] LABS: BLOOD UREA NITROGEN 11 mg/dL (7-20); CALCIUM 8.9 mg/dL (8.4-10.2); CHLORIDE 101 mmol/L (98-107); CREATININE RESULT 0.62 mg/dL (0.52-1.25); GLUCOSE 108 mg/dL (75-110); SODIUM 141.6 mmol/L (137-145)
[2016-08-02 06:42] LABS: ANION GAP 6 (5-19); POTASSIUM 4.4 mmol/L (3.6-5.0)
[2016-08-02 06:46] LABS: CARBON DIOXIDE 35 mmol/L (22-30)
[2016-08-02 07:09] LABS: BASOPHILS % (MANUAL) 0 % (0-2); EOSINOPHILS % (MANUAL) 0 % (0-6); LYMPHOCYTES % (MANUAL) 6 % (13-45); TOTAL CELLS COUNTED 100
[2016-08-02 07:10] LABS: ANISOCYTOSIS SLIGHT; POLYCHROMASIA SLIGHT; SCHISTOCYTES SLIGHT; TOXIC VACUOLATION PRESENT
--- NOTE | 2016-08-02 09:25 | PDOC PROGRESS REPORT ---
Subjective Progress Note for:: 08/02/16 Subjective:: pt is doing well still cough with sputum no chest pain no sob bp stable po intake is fair Physical Exam Vital Signs: Temp Pulse Resp BP Pulse Ox 97.7 F 62 18 134/70 H 90 L 08/02/16 07:37 08/02/16 07:37 08/02/16 07:37 08/02/16 07:37 08/02/16 07:37 Intake & Output 08/01/16 08/02/16 08/03/16 06:59 06:59 06:59 Intake Total 3365 1635 Output Total 3675 5435 50 Balance -310 -3800 -50 Weight 63.9 kg 62.6 kg General appearance: PRESENT: no acute distress Head exam: PRESENT: normocephalic Eye exam: PRESENT: PERRLA Mouth exam: PRESENT: neck supple Respiratory exam: PRESENT: decreased breath sounds. ABSENT: rhonchi, wheezes Cardiovascular exam: PRESENT: +S1, +S2 GI/Abdominal exam: PRESENT: normal bowel sounds, soft. ABSENT: tenderness Extremities exam: ABSENT: pedal edema Neurological exam: PRESENT: alert, awake, oriented to person, oriented to place , oriented to time, oriented to situation Psychiatric exam: PRESENT: anxious Results Laboratory Results: 08/02/16 05:35 08/02/16 05:35 08/02/16 08/02/16 05:35 05:35 WBC 11.2 H RBC 2.67 L Hgb 8.6 L Hct 26.1 L MCV 98 H MCH 32.3 MCHC 33.0 RDW 14.8 H Plt Count 245 Seg Neutrophils % Not Reportable Lymphocytes % Not Reportable Monocytes % Not Reportable Eosinophils % Not Reportable Basophils % Not Reportable Absolute Neutrophils Not Reportable Absolute Lymphocytes Not Reportable Absolute Monocytes Not Reportable Absolute Eosinophils Not Reportable Absolute Basophils Not Reportable Sodium 141.6 Potassium 4.4 Chloride 101 Carbon Dioxide 35 H Anion Gap 6 BUN 11 Creatinine 0.62 Est GFR ( Amer) > 60 Est GFR (Non-Af Amer) > 60 Glucose 108 Calcium 8.9 07/29/16 05:50 Tracheal Aspirate Gram Stain - Final 07/29/16 05:50 Tracheal Aspirate Sputum Culture - Final Mrsa (Meth Resis Staph Aureus) C.albicans/C.dubliniensis Normal Mary Absent 07/29/16 07/29/1616 03:29 10:05 15:25 CK-MB (CK-2) 39.50 H 32.80 H 21.90 H Troponin I 0.386 0.506 0.421 Impressions: Head CT 07/29/16 00:00 IMPRESSION: NORMAL BRAIN CT WITHOUT CONTRAST. Lines and tubes . Chest X-Ray 08/01/16 06:00 IMPRESSION: No significant interval change. Findings as noted above Assessment & Plan - Diagnosis (1) Bilateral pneumonia Qualifiers: Pneumonia type: due to unspecified organism Lung location: unspecified part of lung Qualified Code(s): J18.9 - Pneumonia, unspecified organism Is this a current diagnosis for this admission?: YesPlan: mrsa cont vancomycin if shay afrile next 24 hr switch po med (2) CML (chronic myelocytic leukemia) Is this a current diagnosis for this admission?: YesPlan: stable (3) Respiratory distress Is this a current diagnosis for this admission?: YesPlan: all resolved (4) COPD (chronic obstructive pulmonary disease) Qualifiers: COPD type: unspecified COPD Qualified Code(s): J44.9 - Chronic obstructive pulmonary disease, unspecified Is this a current diagnosis for this admission?: YesPlan: cont neb rx (5) Depression Qualifiers: Depression Type: unspecified Qualified Code(s): F32.9 - Major depressive disorder, single episode, unspecified Plan: stable - Time Time Spent with patient: 15-24 minutes Medications reviewed and adjusted accordingly: Yes Anticipated discharge: Home - Inpatient Certification Medical Necessity: Need For Continuous Telemetry Monitoring, Need for IV Antibiotics - Plan Summary Plan Summary: cont iv vancomycin cont neg downgrade to imcu
[2016-08-02] MEDS: LEVOTHYROXINE SODIUM 0.1 MG TABLET NG SCH (09:40)
[2016-08-02] MEDS: LEVETIRACETAM 500 MG TABLET GT SCH ×2 (09:40→17:31)
[2016-08-02] MEDS: VANCOMYCIN HCL 750 MG in DEXTROSE 5%-WATER 250 ML IV SCH ×2 (09:40→21:10)
[2016-08-02] MEDS: ZOLPIDEM TARTRATE 5 MG TABLET PO SCH (21:08)
[2016-08-03 04:05] LABS: ABSOLUTE BASOPHILS # (AUTO) 0.1 10^3/uL (0.0-0.2); ABSOLUTE EOSINOPHILS # (AUTO) 0.4 10^3/uL (0.0-0.6); ABSOLUTE LYMPHOCYTES (AUTO) 1.3 10^3/uL (0.5-4.7); ABSOLUTE MONOCYTES (AUTO) 0.7 10^3/uL (0.1-1.4); ABSOLUTE NEUT (AUTO) 7.2 10^3/uL (1.7-8.2); BASOPHILS % (AUTO) 0.7 % (0-2); HEMATOCRIT 27.2 % (36.0-47.0); HGB HCT DIFFERENCE -0.2; LYMPHOCYTES % (AUTO) 13.2 % (13-45); MEAN CORPUSCULAR HEMOGLOBIN 32.2 pg (27.0-33.4); MEAN CORPUSCULAR HGB CONC 33.2 g/dL (32.0-36.0); MEAN CORPUSCULAR VOLUME 97 fl (80-97); MONOCYTES % (AUTO) 7.7 % (3-13); RED CELL DISTRIBUTION WIDTH 14.5 % (11.5-14.0); SEGMENTED NEUTROPHILS % (AUTO) 74.4 % (42-78); WHITE BLOOD COUNT 9.6 10^3/uL (4.0-10.5)
[2016-08-03 04:18] LABS: PROTHROMBIN TIME 13.1 SEC (11.4-15.4)
[2016-08-03 04:26] LABS: ALBUMIN 2.8 g/dL (3.5-5.0); ALKALINE PHOSPHATASE 80 U/L (38-126); ANION GAP 9 (5-19); ASPARTATE AMINO TRANSFERASE 29 U/L (14-36); BILIRUBIN,TOTAL 0.3 mg/dL (0.2-1.3); BLOOD UREA NITROGEN 13 mg/dL (7-20); CALCIUM 8.5 mg/dL (8.4-10.2); CARBON DIOXIDE 34 mmol/L (22-30); CHLORIDE 99 mmol/L (98-107); CREATININE RESULT 0.64 mg/dL (0.52-1.25); GLUCOSE 87 mg/dL (75-110); POTASSIUM 3.5 mmol/L (3.6-5.0); SODIUM 142.4 mmol/L (137-145); TOTAL PROTEIN 4.6 g/dL (6.3-8.2)
[2016-08-03 04:51] LABS: ALANINE AMINOTRANSFERASE 41 U/L (9-52)
[2016-08-03] MEDS: OXYCODONE HCL IR 5 MG TABLET NG SCH ×3 (05:46→21:37)
[2016-08-03] MEDS: LANSOPRAZOLE 30 MG TAB.RAP.DR PO SCH ×2 (05:47→17:32)
[2016-08-03 06:57] LABS: ARTERIAL BLOOD BASE EXCESS 9.4 mmol/L; ARTERIAL BLOOD O2 SATURATION 93.9 % (94-98)
[2016-08-03] MEDS ORDERED: POTASSIUM CHLORIDE 20 MEQ/15 ML UDCUP PO ONE (09:15)
[2016-08-03] MEDS: LEVETIRACETAM 500 MG TABLET GT SCH ×2 (09:51→17:32)
[2016-08-03] MEDS: LEVOTHYROXINE SODIUM 0.1 MG TABLET NG SCH (09:52)
--- NOTE | 2016-08-03 10:10 | PDOC PROGRESS REPORT ---
Subjective Progress Note for:: 08/03/16 Subjective:: Patient is doing fair patient was transferred from ICU to the [facility]. Patient still felt cough and some productive cough patient's denied any fever no chest pain no shortness of the breath and no events happens overnight oceans out of the bed to the bathroom patient's by mouth intake is fair Physical Exam Vital Signs: Temp Pulse Resp BP Pulse Ox 97.9 F 68 16 112/42 L 97 08/03/16 07:34 08/03/16 08:00 08/03/16 08:00 08/03/16 07:34 08/03/16 08:00 Intake & Output 08/02/16 08/03/16 08/04/16 06:59 06:59 06:59 Intake Total 1635 1474 Output Total 5435 1440 Balance -3800 34 Weight 62.6 kg 66.2 kg General appearance: PRESENT: no acute distress Head exam: PRESENT: normocephalic Eye exam: PRESENT: PERRLA Neck exam: PRESENT: full ROM. ABSENT: JVD Respiratory exam: PRESENT: decreased breath sounds, rhonchi. ABSENT: wheezes Cardiovascular exam: PRESENT: +S1, +S2 GI/Abdominal exam: PRESENT: normal bowel sounds, soft. ABSENT: tenderness Extremities exam: ABSENT: pedal edema Neurological exam: PRESENT: alert, awake, oriented to person, oriented to place Psychiatric exam: PRESENT: anxious Skin exam: PRESENT: dry Results Laboratory Results: 08/03/16 04:00 08/03/16 04:00 08/03/16 08/03/16 08/03/16 04:00 04:00 06:25 WBC 9.6 RBC 2.80 L Hgb 9.0 L Hct 27.2 L MCV 97 MCH 32.2 MCHC 33.2 RDW 14.5 H Plt Count 270 Seg Neutrophils % 74.4 Lymphocytes % 13.2 Monocytes % 7.7 Eosinophils % 4.0 Basophils % 0.7 Absolute Neutrophils 7.2 Absolute Lymphocytes 1.3 Absolute Monocytes 0.7 Absolute Eosinophils 0.4 Absolute Basophils 0.1 Carbonic Acid 1.66 H HCO3/H2CO3 Ratio 21:1 ABG pH 7.42 ABG pCO2 55.2 H ABG pO2 69.5 L ABG HCO3 35.2 H ABG O2 Saturation 93.9 L ABG Base Excess 9.4 FiO2 2L Sodium 142.4 Potassium 3.5 L Chloride 99 Carbon Dioxide 34 H Anion Gap 9 BUN 13 Creatinine 0.64 Est GFR ( Amer) > 60 Est GFR (Non-Af Amer) > 60 Glucose 87 Calcium 8.5 Magnesium 2.0 Total Bilirubin 0.3 AST 29 ALT 41 Alkaline Phosphatase 80 Total Protein 4.6 L Albumin 2.8 L 07/29/16 07/29/16 07/29/16 03:29 10:05 15:25 CK-MB (CK-2) 39.50 H 32.80 H 21.90 H Troponin I 0.386 0.506 0.421 Impressions: Head CT 07/29/16 00:00 IMPRESSION: NORMAL BRAIN CT WITHOUT CONTRAST. Lines and tubes . Chest X-Ray 08/03/16 06:00 IMPRESSION: SIGNIFICANT INTERVAL IMPROVEMENT OF THE CHEST. Assessment & Plan - Diagnosis (1) Bilateral pneumonia Qualifiers: Pneumonia type: due to unspecified organism Lung location: unspecified part of lung Qualified Code(s): J18.9 - Pneumonia, unspecified organism Is this a current diagnosis for this admission?: YesPlan: mrsa cont vancomycin if shay afrile next 24 hr switch po med (2) CML (chronic myelocytic leukemia) Is this a current diagnosis for this admission?: YesPlan: stable (3) Respiratory distress Is this a current diagnosis for this admission?: YesPlan: all resolved (4) COPD (chronic obstructive pulmonary disease) Qualifiers: COPD type: unspecified COPD Qualified Code(s): J44.9 - Chronic obstructive pulmonary disease, unspecified Is this a current diagnosis for this admission?: YesPlan: cont neb rx (5) Depression Qualifiers: Depression Type: unspecified Qualified Code(s): F32.9 - Major depressive disorder, single episode, unspecified Plan: stable - Time Time Spent with patient: 15-24 minutes Medications reviewed and adjusted accordingly: Yes Anticipated discharge: Other - Inpatient Certification Medical Necessity: Need for Nebulizer Therapy and Monitoring of Response, Need for IV Antibiotics - Plan Summary Plan Summary: Continues a nebulizer treatment continues IV antibiotics and continues to monitor the patient
[2016-08-03] MEDS: MORPHINE SULFATE 10 MG/ML INJ IV PRN ×2 (10:23→17:31)
[2016-08-03] MEDS: VANCOMYCIN HCL 750 MG in DEXTROSE 5%-WATER 250 ML IV SCH ×2 (10:24→21:38)
[2016-08-03 10:41] LABS: CREATININE RESULT 0.68 mg/dL (0.52-1.25)
[2016-08-03] MEDS: ZOLPIDEM TARTRATE 5 MG TABLET PO SCH (21:38)
[2016-08-04] MEDS: OXYCODONE HCL IR 5 MG TABLET NG SCH ×3 (06:40→21:46)
[2016-08-04] MEDS: LANSOPRAZOLE 30 MG TAB.RAP.DR PO SCH ×2 (06:40→16:44)
--- NOTE | 2016-08-04 08:47 | PDOC PROGRESS REPORT ---
Subjective Progress Note for:: 08/04/16 Subjective:: Patient is doing well . Patient's fell last night but no no other injury. Patient's cough is also improving and chest x-rays also improving no shortness of breath and no chest pain still on vancomycin IV for MRSA Physical Exam Vital Signs: Temp Pulse Resp BP Pulse Ox 98.3 F 84 18 110/65 100 08/04/16 07:26 08/04/16 07:26 08/04/16 07:26 08/04/16 07:26 08/04/16 07:26 Intake & Output 08/03/16 08/04/16 08/05/16 06:59 06:59 06:59 Intake Total 1474 2484 Output Total 1440 900 Balance 34 1584 Weight 66.2 kg 66.1 kg General appearance: PRESENT: no acute distress Head exam: PRESENT: normocephalic Eye exam: PRESENT: PERRLA Mouth exam: PRESENT: neck supple Neck exam: PRESENT: full ROM Respiratory exam: PRESENT: clear to auscultation sho Cardiovascular exam: PRESENT: +S1, +S2 GI/Abdominal exam: PRESENT: normal bowel sounds, soft. ABSENT: tenderness Extremities exam: ABSENT: pedal edema Neurological exam: PRESENT: alert, awake, oriented to person, oriented to place Psychiatric exam: PRESENT: anxious Skin exam: PRESENT: normal color Results Laboratory Results: 08/03/16 04:00 08/03/16 09:55 08/03/16 09:55 Creatinine 0.68 Est GFR ( Amer) > 60 Est GFR (Non-Af Amer) > 60 07/29/16 07/29/16 07/29/16 03:29 10:05 15:25 CK-MB (CK-2) 39.50 H 32.80 H 21.90 H Troponin I 0.386 0.506 0.421 Impressions: Head CT 07/29/16 00:00 IMPRESSION: NORMAL BRAIN CT WITHOUT CONTRAST. Lines and tubes . Chest X-Ray 08/03/16 06:00 IMPRESSION: SIGNIFICANT INTERVAL IMPROVEMENT OF THE CHEST. Assessment & Plan - Diagnosis (1) Bilateral pneumonia Qualifiers: Pneumonia type: due to unspecified organism Lung location: unspecified part of lung Qualified Code(s): J18.9 - Pneumonia, unspecified organism Is this a current diagnosis for this admission?: YesPlan: Switch to vancomycin is to the by mouth Bactrim and check the CBC Chem-7 in the morning (2) CML (chronic myelocytic leukemia) Is this a current diagnosis for this admission?: YesPlan: stable (3) Respiratory distress Is this a current diagnosis for this admission?: YesPlan: all resolved (4) COPD (chronic obstructive pulmonary disease) Qualifiers: COPD type: unspecified COPD Qualified Code(s): J44.9 - Chronic obstructive pulmonary disease, unspecified Is this a current diagnosis for this admission?: YesPlan: cont neb rx (5) Depression Qualifiers: Depression Type: unspecified Qualified Code(s): F32.9 - Major depressive disorder, single episode, unspecified Plan: stable - Time Time Spent with patient: 15-24 minutes Medications reviewed and adjusted accordingly: Yes Anticipated discharge: Home - Inpatient Certification Medical Necessity: Need Close Monitoring Due to Risk of Patient Decompensation, Need for Nebulizer Therapy and Monitoring of Response Post Hospital Care: D/C Support Associate Documentation - Plan Summary Plan Summary: Start the by mouth Bactrim and stop the IV vancomycin and check the labs and if is still all stable potentially go home soon
[2016-08-04] MEDS: LEVETIRACETAM 500 MG TABLET GT SCH ×2 (10:45→17:58)
[2016-08-04] MEDS: SULFAMETHOXAZOLE/TRIMETHOPRIM 800-160 MG TABLET PO SCH ×2 (10:46→17:58)
[2016-08-04] MEDS: LEVOTHYROXINE SODIUM 0.1 MG TABLET NG SCH (10:46)
[2016-08-04] MEDS: IMATINIB MESYLATE 400 MG PO SCH (10:46)
[2016-08-04] MEDS: MORPHINE SULFATE 10 MG/ML INJ IV PRN ×2 (10:57→17:57)
[2016-08-04] MEDS ORDERED: DOCUSATE SODIUM 100 MG CAPSULE PO ONE (18:00)
[2016-08-04] MEDS: ZOLPIDEM TARTRATE 5 MG TABLET PO SCH (21:46)
[2016-08-05] MEDS: OXYCODONE HCL IR 5 MG TABLET NG SCH ×3 (05:38→22:00)
[2016-08-05] MEDS: LANSOPRAZOLE 30 MG TAB.RAP.DR PO SCH ×2 (05:39→17:31)
[2016-08-05 06:08] LABS: ABSOLUTE BASOPHILS # (AUTO) 0.1 10^3/uL (0.0-0.2); ABSOLUTE EOSINOPHILS # (AUTO) 0.2 10^3/uL (0.0-0.6); ABSOLUTE LYMPHOCYTES (AUTO) 1.4 10^3/uL (0.5-4.7); ABSOLUTE MONOCYTES (AUTO) 0.8 10^3/uL (0.1-1.4); ABSOLUTE NEUT (AUTO) 10.4 10^3/uL (1.7-8.2); BASOPHILS % (AUTO) 0.9 % (0-2); EOSINOPHILS % (AUTO) 1.7 % (0-6); HEMATOCRIT 29.2 % (36.0-47.0); HEMOGLOBIN 9.6 g/dL (12.0-15.5); HGB HCT DIFFERENCE -0.4; LYMPHOCYTES % (AUTO) 10.6 % (13-45); MEAN CORPUSCULAR HEMOGLOBIN 31.9 pg (27.0-33.4); MEAN CORPUSCULAR HGB CONC 32.8 g/dL (32.0-36.0); MEAN CORPUSCULAR VOLUME 97 fl (80-97); MONOCYTES % (AUTO) 6.2 % (3-13); RED CELL DISTRIBUTION WIDTH 14.6 % (11.5-14.0); SEGMENTED NEUTROPHILS % (AUTO) 80.6 % (42-78); WHITE BLOOD COUNT 12.9 10^3/uL (4.0-10.5)
[2016-08-05 06:18] LABS: ANION GAP 10 (5-19); BLOOD UREA NITROGEN 15 mg/dL (7-20); CALCIUM 8.7 mg/dL (8.4-10.2); CARBON DIOXIDE 31 mmol/L (22-30); CHLORIDE 99 mmol/L (98-107); CREATININE RESULT 0.84 mg/dL (0.52-1.25); GLUCOSE 103 mg/dL (75-110); POTASSIUM 3.8 mmol/L (3.6-5.0); SODIUM 140.3 mmol/L (137-145)
[2016-08-05] MEDS: IMATINIB MESYLATE 400 MG PO SCH (10:03)
[2016-08-05] MEDS: LEVETIRACETAM 500 MG TABLET GT SCH ×2 (10:07→17:31)
[2016-08-05] MEDS: LEVOTHYROXINE SODIUM 0.1 MG TABLET NG SCH (10:07)
[2016-08-05] MEDS: DOCUSATE SODIUM 100 MG CAPSULE PO SCH (10:08)
[2016-08-05] MEDS: SULFAMETHOXAZOLE/TRIMETHOPRIM 800-160 MG TABLET PO SCH ×2 (10:08→17:31)
--- NOTE | 2016-08-05 18:38 | PDOC PROGRESS REPORT ---
Subjective Progress Note for:: 08/05/16 Subjective:: Patient remain clinically stable post extubation. Remain on Bactrim DS coverage for MRSA pneumonia. Denied any difficulty with breathing. No chest pain. No fever or chills. Tolerating oral feeding. No nausea or vomiting. Denied any diarrhea. Physical Exam Vital Signs: Temp Pulse Resp BP Pulse Ox 97.4 F 80 16 97/41 L 92 08/05/16 11:32 08/05/16 14:00 08/05/16 11:32 08/05/16 11:32 08/05/16 11:32 Intake & Output 08/04/16 08/05/16 08/06/16 06:59 06:59 06:59 Intake Total 2484 2526 622 Output Total 900 2100 400 Balance 1584 426 222 Weight 66.1 kg 65.7 kg General appearance: PRESENT: no acute distress Head exam: PRESENT: atraumatic, normocephalic Eye exam: PRESENT: conjunctiva pink, EOMI, PERRLA. ABSENT: scleral icterus Ear exam: PRESENT: normal external ear exam Mouth exam: PRESENT: moist, tongue midline Teeth exam: PRESENT: poor dentation - multiple lost teeth Neck exam: PRESENT: full ROM. ABSENT: carotid bruit, JVD, lymphadenopathy, thyromegaly Respiratory exam: ABSENT: accessory muscle use, chest wall tenderness, clear to auscultation sho, crackles, decreased breath sounds, prolonged expiratory phas, rales, retraction, rhonchi, stridor, symmetrical, tachypnea, unlabored, wheezes , other Cardiovascular exam: PRESENT: RRR. ABSENT: diastolic murmur, rubs, systolic murmur Pulses: PRESENT: normal dorsalis pedis pul, +2 pedal pulses bilateral Vascular exam: PRESENT: normal capillary refill GI/Abdominal exam: PRESENT: normal bowel sounds, soft. ABSENT: distended, guarding, mass, organolmegaly, rebound, tenderness Extremities exam: PRESENT: full ROM Musculoskeletal exam: PRESENT: ambulatory, full ROM, normal inspection Neurological exam: PRESENT: alert, awake, oriented to person, oriented to place , oriented to time, oriented to situation, CN II-XII grossly intact. ABSENT: motor sensory deficit Psychiatric exam: PRESENT: appropriate affect, normal mood. ABSENT: homicidal ideation, suicidal ideation Skin exam: PRESENT: dry, intact, warm. ABSENT: cyanosis, rash Results Laboratory Results: 08/05/16 05:40 08/05/16 05:40 08/02/16 08/05/16 08/05/16 05:35 05:40 05:40 WBC 11.2 H 12.9 H RBC 2.67 L 3.00 L Hgb 8.6 L 9.6 L Hct 26.1 L 29.2 L MCV 98 H 97 MCH 32.3 31.9 MCHC 33.0 32.8 RDW 14.8 H 14.6 H Plt Count 245 328 Seg Neutrophils % 80.6 H Lymphocytes % 10.6 L Monocytes % 6.2 Eosinophils % 1.7 Basophils % 0.9 Absolute Neutrophils 10.4 H Absolute Lymphocytes 1.4 Absolute Monocytes 0.8 Absolute Eosinophils 0.2 Absolute Basophils 0.1 Sodium 140.3 Potassium 3.8 Chloride 99 Carbon Dioxide 31 H Anion Gap 10 BUN 15 Creatinine 0.84 Est GFR ( Amer) > 60 Est GFR (Non-Af Amer) > 60 Glucose 103 Calcium 8.7 07/29/16 07/29/16 07/29/16 03:29 10:05 15:25 CK-MB (CK-2) 39.50 H 32.80 H 21.90 H Troponin I 0.386 0.506 0.421 Impressions: Head CT 07/29/16 00:00 IMPRESSION: NORMAL BRAIN CT WITHOUT CONTRAST. Lines and tubes . Chest X-Ray 08/03/16 06:00 IMPRESSION: SIGNIFICANT INTERVAL IMPROVEMENT OF THE CHEST. Assessment & Plan - Diagnosis (1) Bilateral pneumonia Qualifiers: Pneumonia type: due to unspecified organism Lung location: unspecified part of lung Qualified Code(s): J18.9 - Pneumonia, unspecified organism Is this a current diagnosis for this admission?: YesPlan: Continue Bactrim DS therapy based on sensitivity report of her tracheal aspirate culture with MRSA. I will request repeat chest X ray PA and Lateral views in AM. (2) Respiratory distress Is this a current diagnosis for this admission?: Yes (3) Septic shock Is this a current diagnosis for this admission?: No (4) Respiratory acidosis Is this a current diagnosis for this admission?: Yes (5) Acute hypercapnic respiratory failure Is this a current diagnosis for this admission?: Yes (6) CML (chronic myelocytic leukemia) Is this a current diagnosis for this admission?: Yes (7) Hypokalemia due to loss of potassium Is this a current diagnosis for this admission?: Yes (8) MRSA (methicillin resistant Staphylococcus aureus) carrier Is this a current diagnosis for this admission?: Yes (9) Excessive anticoagulation Is this a current diagnosis for this admission?: Yes (10) Mixed anxiety and depressive disorder Is this a current diagnosis for this admission?: YesPlan: I will request psychiatry consultation input and arrange outpatient follow up before discharge in view of her significant comorbidities and high risk of readmission. - Time Time Spent with patient: 25-34 minutes Anticipated discharge: Home with Homehealth - Inpatient Certification Medical Necessity: Need For Continuous Telemetry Monitoring, Risk of Complication if Not Cared For in Hospital Post Hospital Care: D/C Forming Department Supervisor Documentation - Plan Summary Plan Summary: Continue on all current mediation management. I had extensive discussion with patient and daughter at bedside regarding post discharge care needs. She will make appointment to follow up with Dr. Arriola, her medical oncologist, upon discharge for further management of her CML.
[2016-08-05] MEDS: MORPHINE SULFATE 10 MG/ML INJ IV PRN (20:01)
[2016-08-05] MEDS: ZOLPIDEM TARTRATE 5 MG TABLET PO SCH (22:01)
[2016-08-06] MEDS: OXYCODONE HCL IR 5 MG TABLET NG SCH (06:08)
[2016-08-06] MEDS: LANSOPRAZOLE 30 MG TAB.RAP.DR PO SCH (06:08)
[2016-08-06 07:11] LABS: ANION GAP 11 (5-19); BLOOD UREA NITROGEN 16 mg/dL (7-20); CALCIUM 8.3 mg/dL (8.4-10.2); CARBON DIOXIDE 29 mmol/L (22-30); CHLORIDE 101 mmol/L (98-107); CREATININE RESULT 0.95 mg/dL (0.52-1.25); GLUCOSE 90 mg/dL (75-110); SODIUM 140.8 mmol/L (137-145)
--- NOTE | 2016-08-06 08:49 | PDOC DISCHARGE SUMMARY ---
General - Admit/Disc Date/PCP Admission Date/Primary Care Provider: 07/29/16 03:07 TATYIVON MILLARD Discharge Date: 08/06/16 - Discharge Diagnosis (1) Bilateral pneumonia Is this a current diagnosis for this admission?: Yes (2) Respiratory distress Is this a current diagnosis for this admission?: Yes (3) Septic shock Is this a current diagnosis for this admission?: No (4) Respiratory acidosis Is this a current diagnosis for this admission?: Yes (5) Acute hypercapnic respiratory failure Is this a current diagnosis for this admission?: Yes (6) CML (chronic myelocytic leukemia) Is this a current diagnosis for this admission?: Yes (7) Hypokalemia due to loss of potassium Is this a current diagnosis for this admission?: Yes (8) MRSA (methicillin resistant Staphylococcus aureus) carrier Is this a current diagnosis for this admission?: Yes (9) Excessive anticoagulation Is this a current diagnosis for this admission?: Yes (10) Mixed anxiety and depressive disorder Is this a current diagnosis for this admission?: Yes - Additional Information Resuscitation Status: Full Code Discharge Diet: Regular Discharge Activity: Activity As Tolerated Home Medications: Atorvastatin Calcium 40 mg PO QHS 02/10/13 Duloxetine HCl [Cymbalta] 60 mg PO DAILY 02/10/13 Esomeprazole Magnesium [Nexium] 40 mg PO DAILY 02/10/13 Imatinib Mesylate [Gleevec] 400 mg PO DAILY 02/10/13 Levetiracetam [Keppra] 1,000 mg PO BID 04/22/14 Gabapentin [Neurontin 300 mg Capsule] 300 mg PO QID 11/17/14 Budesonide/Formoterol Fumarate [Symbicort HFA 160-4.5 mcg Inhaler 6 gm] 2 puff IH Q12 #0 inhaler 07/16/15 Albuterol Sulfate [Proair HFA] 2 inh IN TID 11/30/15 Clopidogrel Bisulfate [Plavix 75 mg Tablet] 75 mg PO DAILY 11/30/15 Metoprolol Tartrate 12.5 mg PO BID 11/30/15 Levothyroxine Sodium 100 mcg PO DAILY 01/08/16 Buspirone HCl 7.5 mg PO BID 07/29/16 Zolpidem Tartrate 10 mg PO DAILY PRN 07/29/16 Sulfamethoxazole/Trimethoprim [Septra-Ds 800-160 mg Tablet] 1 tab PO BID #5 tablet 08/06/16 History of Present Illness History of Present Illness: She is 50 years old female patient known to my practice with history of chronic myeloid leukemia brought to the Emergency department by EMS after family alerted service due to difficulty waking her up from sleep. She was recently seen at the office for presumed upper respiratory infection and treated for bronchitis. Family reported that patient did show some initial improvement but became more confused with worsening breathing problem. There was no reported fever or chills. No reported chest pain. No nausea or vomiting. Family reported that she was ambulatory at home before going to bed to sleep and thereafter attempts to arouse her from sleep have been difficult. In view of her change in mental status EMS was activated. EMS personnel found pain in respiratory distress with hypoxemia and need for BiPAP support enroute to the hospital. In view of her unresponsiveness and to protect her airway she was eventually intubated. She demonstrated associated hypotension necessitating pressor support and admission to ICU. Hospital Course Hospital Course: Patient has remain clinically stable and continue improvement since extubation. No breathing problem. No chest pain. No nausea, vomiting, abdominal pain or diarrhea. No genitourinary symptoms. Blood culture was no growth x 5 days. Nasopharyngeal and tracheal aspirate culture did grew MRSA sensitive to Vancomycin and Bactrim. She received 7 days of IV Vancomycin therapy and subsequently changed to oral Bactrim DS. Patient remain afebrile. Her chest X ray revealed significant improvement and almost complete resolution of bibasilar air space disease process. Atempt at psychiatry consultation for input into her mixed anxiety and depression issues was not successful dueing this hospitalization. Referral will be made to Dr Grider, psychiatrist, at [facility] upon discharge. Patient have been instructed to follow up with Dr Arriola as schedule on 08/14/2016. She will follow up with me in the office on 2016 at 10:00 am. Physical Exam Vital Signs: Temp Pulse Resp BP Pulse Ox 98.1 F 73 16 99/50 L 89 L 08/06/16 07:33 08/06/16 07:33 08/06/16 07:33 08/06/16 07:33 08/06/16 07:33 Intake & Output 08/05/16 08/06/16 08/07/16 06:59 06:59 06:59 Intake Total 1807 5316 Output Total 2100 1850 Balance 426 -174 Weight 65.7 kg 65.5 kg General appearance: PRESENT: no acute distress, well-developed, well-nourished Head exam: PRESENT: atraumatic, normocephalic Eye exam: PRESENT: conjunctiva pink, EOMI, PERRLA. ABSENT: scleral icterus Ear exam: PRESENT: normal external ear exam Mouth exam: PRESENT: moist, tongue midline Teeth exam: PRESENT: poor dentation Throat exam: ABSENT: post pharyngeal erythema, tonsillar erythema, tonsillar exudate, tonsillogmegaly, other Neck exam: PRESENT: full ROM. ABSENT: carotid bruit, JVD, lymphadenopathy, thyromegaly Respiratory exam: ABSENT: accessory muscle use, chest wall tenderness, clear to auscultation sho, crackles, decreased breath sounds, prolonged expiratory phas, rales, retraction, rhonchi, stridor, symmetrical, tachypnea, unlabored, wheezes , other Cardiovascular exam: PRESENT: RRR. ABSENT: diastolic murmur, rubs, systolic murmur GI/Abdominal exam: PRESENT: normal bowel sounds, soft. ABSENT: distended, guarding, mass, organolmegaly, rebound, tenderness Extremities exam: PRESENT: full ROM Musculoskeletal exam: PRESENT: ambulatory, full ROM, normal inspection Neurological exam: PRESENT: alert, awake, oriented to person, oriented to place , oriented to time, oriented to situation, CN II-XII grossly intact. ABSENT: motor sensory deficit Psychiatric exam: PRESENT: appropriate affect, normal mood. ABSENT: homicidal ideation, suicidal ideation Skin exam: PRESENT: dry, intact, warm. ABSENT: cyanosis, rash Results Laboratory Results: 08/05/16 05:40 08/06/16 06:15 08/02/16 08/06/16 05:35 06:15 WBC 11.2 H RBC 2.67 L Hgb 8.6 L Hct 26.1 L MCV 98 H MCH 32.3 MCHC 33.0 RDW 14.8 H Plt Count 245 Sodium 140.8 Potassium 4.0 Chloride 101 Carbon Dioxide 29 Anion Gap 11 BUN 16 Creatinine 0.95 Est GFR ( Amer) > 60 Est GFR (Non-Af Amer) > 60 Glucose 90 Calcium 8.3 L 07/29/16 07/29/16 07/29/16 03:29 10:05 15:25 CK-MB (CK-2) 39.50 H 32.80 H 21.90 H Troponin I 0.386 0.506 0.421 Impressions: Head CT 07/29/16 00:00 IMPRESSION: NORMAL BRAIN CT WITHOUT CONTRAST. Lines and tubes . Chest X-Ray 08/06/16 07:00 IMPRESSION: NO SIGNIFICANT RADIOGRAPHIC FINDING IN THE CHEST. Qualifiers PATEINT BEING DISCHARGED WITH ANY OF THE FOLLOWING DIAGNOSIS?: No Plan Discharge Plan: D/C home today with Bactrim DS 1 tablet po bid. Follow up with me on 08/12/2016 at 10:00 am. We will obtain oncology follow up and psychiatry outpatient consultation appointments before discharge. Time Spent: Greater than 30 Minutes
[2016-08-06] MEDS: IMATINIB MESYLATE 400 MG PO SCH (09:39)
[2016-08-06] MEDS: SULFAMETHOXAZOLE/TRIMETHOPRIM 800-160 MG TABLET PO SCH (09:39)
[2016-08-06] MEDS: DOCUSATE SODIUM 100 MG CAPSULE PO SCH (09:39)
[2016-08-06] MEDS: LEVETIRACETAM 500 MG TABLET GT SCH (09:39)
[2016-08-06] MEDS: LEVOTHYROXINE SODIUM 0.1 MG TABLET NG SCH (09:39)
[2016-08-06 10:42] VITALS: BP 128/57
--- NOTE | 2016-08-07 07:57 | PSYCHOLOGICAL NOTE ---
Psych Note - Psych Note Psych Note: Upon conducting chart review, clinician noted patient had been discharged. Psychological evaluation could not be conducted.
== END 2016-08-06 12:01 | disposition home or self-care (01) | DRG 871 ==
LOC: ER 22:22 → EH 07-29 03:04 → UNDOADMIN 07-29 03:04 → EH 07-29 03:07 → ICU 07-29 05:19 → 3W 08-03 04:44
PROVIDERS: ADMIT Internal Medicine; ATTEND Internal Medicine Geriatric Medicine
PROC: 05HM33Z Insertion of Infusion Device into Right Internal Jugular Vein, Percutaneous Approach (ICD-10-PCS; principal; 2016-07-29)
PROC: B543ZZA Ultrasonography of Right Jugular Veins, Guidance (ICD-10-PCS; 2016-07-29)
PROC: 0BH17EZ Insertion of Endotracheal Airway into Trachea, Via Natural or Artificial Opening (ICD-10-PCS; 2016-07-29)
PROC: 5A1945Z Respiratory Ventilation, 24-96 Consecutive Hours (ICD-10-PCS; 2016-07-29)
DX: R65.21 Severe sepsis with septic shock (principal); J15.212 Pneumonia due to Methicillin resistant Staphylococcus aureus; J96.02 Acute respiratory failure with hypercapnia; E87.2 Acidosis; C92.10 Chronic myeloid leukemia, BCR/ABL-positive, not having achieved remission; E87.6 Hypokalemia; Z22.322 Carrier or suspected carrier of Methicillin resistant Staphylococcus aureus; J44.9 Chronic obstructive pulmonary disease, unspecified; F41.8 Other specified anxiety disorders; I10 Essential (primary) hypertension; E03.9 Hypothyroidism, unspecified; K21.9 Gastro-esophageal reflux disease without esophagitis; M79.7 Fibromyalgia; M19.90 Unspecified osteoarthritis, unspecified site; Z79.02 Long term (current) use of antithrombotics/antiplatelets; Z79.899 Other long term (current) drug therapy; Z90.49 Acquired absence of other specified parts of digestive tract; Z90.710 Acquired absence of both cervix and uterus; Z95.0 Presence of cardiac pacemaker; F17.210 Nicotine dependence, cigarettes, uncomplicated
CPT/HCPCS: 31500; 36415; 36600; 51702; 70450; 71010; 71020; 76937; 80048; 80053; 80202; 80301; 81001; 82140; 82150; 82550; 82553; 82565; 82803; 83036; 83605; 83690; 83735; 83880; 84100; 84132; 84439; 84443; 84478; 84484; 85025; 85610; 85730; 87040; 87070; 87077; 87086; 87186; 87205; 93005; 93010; 93306; 94002; 94003; 94640; 94799; 96361; 96365; 96366; 96367; 96368; 99291; 99292; C1751; C1752; G0479; J0330; J0692; J1100; J1642; J1956; J2270; J2704; J3370; J3430; J3480; J3490; J7030; J7060; J7620

== ENCOUNTER 2016-12-15 08:04 | Day surgery (SDC) | payer MEDICARE, MEDICAID ==
[~2016-12-15 08:04] MED LIST: PROPOFOL INJ 200 MG/20 ML VIAL IV ONE
[2016-12-15 10:02] VITALS: BP 98/56
--- NOTE | 2016-12-15 14:45 | Operative Report ---
Operative Report DATE OF SURGERY: 12/15/16 Operative Report: The risks, benefits and alternatives of the procedure including risks of bleeding, perforation requiring surgery are explained to the patient detail and informed consent is obtained. Patient is placed in the left, lateral decubital position. A rectal examination was done which did not reveal any masses, tears or fissures. Timeout is called. Propofol medication is administered. An Olympus videoscope was inserted into the patient's rectum. The scope was then gradually advanced all the way to the cecum. The cecum was identified by the usual anatomical landmarks including the ileocecal valve as well as the appendiceal office. Photodocumentation is obtained. Prep is good. The scope was then sequentially pulled back via the rest was of the colon including the ascending colon, hepatic flexure, transverse colon, splenic flexure, descending colon and finally into the rectosigmoid portions of the colon. Retroflexion maneuvers performed. PREOPERATIVE DIAGNOSIS: Left lower quadrant pain, history of diverticulosis POSTOPERATIVE DIAGNOSIS: Right-sided inflammation status post biopsy. Diverticulosis. Melanosis coli OPERATION: Colonoscopy with biopsy SURGEON: SAURAV LONGO ANESTHESIA: LMAC TISSUE REMOVED OR ALTERED: Right-sided colon mucosal specimen obtained COMPLICATIONS: None. ESTIMATED BLOOD LOSS: none. INTRAOPERATIVE FINDINGS: As described above. PROCEDURE: Patient tolerated procedure well. No immediate postprocedure complications are noted. Patient is discharged in good condition. Discharge date 12/15/2016. Discharge diet: Regular. Discharge activity: Regular. 2-3 week follow-up to discuss findings. We'll await on biopsies. Patient is instructed to call the office or proceed to the emergency room should there be any further problems or questions.
== END 2016-12-15 10:08 | disposition home or self-care (01) ==
LOC: END 08:04
PROVIDERS: ATTEND Internal Medicine Gastroenterology
PROC: 0DBF8ZX Excision of Right Large Intestine, Via Natural or Artificial Opening Endoscopic, Diagnostic (ICD-10-PCS; principal; 2016-12-15 09:30)
DX: K57.30 Diverticulosis of large intestine without perforation or abscess without bleeding (principal); K52.9 Noninfective gastroenteritis and colitis, unspecified; K21.9 Gastro-esophageal reflux disease without esophagitis; D64.9 Anemia, unspecified; I10 Essential (primary) hypertension; E03.9 Hypothyroidism, unspecified; E11.9 Type 2 diabetes mellitus without complications; J44.9 Chronic obstructive pulmonary disease, unspecified; F17.210 Nicotine dependence, cigarettes, uncomplicated; E78.5 Hyperlipidemia, unspecified; G43.909 Migraine, unspecified, not intractable, without status migrainosus; I50.9 Heart failure, unspecified; C95.90 Leukemia, unspecified not having achieved remission; M79.7 Fibromyalgia; Z79.02 Long term (current) use of antithrombotics/antiplatelets; Z79.899 Other long term (current) drug therapy; Z88.0 Allergy status to penicillin; Z88.5 Allergy status to narcotic agent; Z79.51 Long term (current) use of inhaled steroids
CPT/HCPCS: 45380; 88305 ×2; J2704; 810

== ENCOUNTER → 2017-07-08 | Outpatient (CLI) | payer MEDICARE, MEDICAID ==
--- NOTE | 2017-07-08 13:02 | WOMENS IMAGING REPORT ---
EXAM DESCRIPTION: 3D SCREENING MAMMO BILAT COMPLETED DATE/TIME: 07/08/2017 10:34 am REASON FOR STUDY: ROUTINE SCREENING; Z12.31 Z12.31 ENCNTR SCREEN MAMMOGRAM FOR MALIGNANT NEOPLASM O F BRAEDEN COMPARISON: 06/09/2016 and 08/14/2014. TECHNIQUE: Standard craniocaudal and mediolateral oblique views of each breast recorded using digita l acquisition and breast tomosynthesis. LIMITATIONS: None. FINDINGS: No masses, calcifications or architectural distortion. No areas of suspicion. Read with the assistance of CAD. .[facility] - R2 Cenova Version 1.3 .[facility] Imaging - R2 Cenova Version 1.3 .[facility] Imaging - R2 Cenova Version 2.4 .[facility] [place] Cenova [place] 2.4 .[facility] - R2 [employer] Version 9.2 IMPRESSION: NORMAL MAMMOGRAM. BIRADS 1. BREAST DENSITY: b. There are scattered areas of fibroglandular density. BIRAD: 1 NEGATIVE RECOMMENDATION: ROUTINE SCREENING COMMENT: The patient has been notified of the results by letter per MQSA requirements. Additional no tification policies are in place for contacting patient with suspicious or incomplete findings. Quality ID #[id number]: The [employer] recommends an annual screening mammogram for women aged 40 years or over. This facility utilizes a reminder system to ensure that all patients receive reminder letters, and/or direct phone calls for appointments. This includes reminders for routine scr eening mammograms, diagnostic mammograms, or other Breast Imaging Interventions when appropriate. Th is patient will be placed in the appropriate reminder system. The [employer] (ACR) has developed recommendations for screening MRI of the breast s in certain patient populations, to be used in conjunction with mammography. Breast MRI surveillanc e may be appropriate for women with more than 20% lifetime risk of developing breast cancer as deter mined by genetic testing, significant family history of the disease, or history of mantle radiation f or Hodgkins Disease. ACR Practice Guidelines 2008. DBT Technology DBT is a type of tomographic mammography. With conventional mammography, overlapping breast tissue ma y make lesions difficult to detect, even with good compression. DBT uses an x-ray tube that rotates a round the breast, taking images at different angles. These images are then combined to create thin sl ices of the breast that the radiologist can view as a 3D reconstruction. The [employer]ik unit can perform full-field digital mammograms (2D imaging); or DBT (3D imaging); or both, in a combination mode that quickly performs both the mammogram and the tomosynthesis scan while the breast is still compressed. PQRS 6045F: Fluoroscopic imaging is not utilized for breast tomosynthesis. TECHNICAL DOCUMENTATION: FINDING NUMBER: (1) ASSESSMENT: (1) JOB ID: [id number] [employer]- All Rights Reserved
== END ==
LOC: WI 08:27
PROVIDERS: ATTEND Internal Medicine Geriatric Medicine
DX: Z12.31 Encounter for screening mammogram for malignant neoplasm of breast (principal)
CPT/HCPCS: 77063; G0202; 77067

== ENCOUNTER 2018-04-26 16:50 | Inpatient (IN) | payer MEDICARE, MEDICAID ==
[2018-04-26 17:55] LABS: VENOUS BLOOD BASE EXCESS -2.3 mmol/L; VENOUS BLOOD HCO3 22.4 mmol/L (20-32); VENOUS BLOOD PCO2 38.4 mmHg (35-63); VENOUS BLOOD PH 7.38 (7.30-7.42)
[2018-04-26 17:56] LABS: ABSOLUTE BASOPHILS # (AUTO) 0.1 10^3/uL (0.0-0.2); ABSOLUTE EOSINOPHILS # (AUTO) 0.2 10^3/uL (0.0-0.6); ABSOLUTE LYMPHOCYTES (AUTO) 0.8 10^3/uL (0.5-4.7); ABSOLUTE MONOCYTES (AUTO) 0.7 10^3/uL (0.1-1.4); BASOPHILS % (AUTO) 0.7 % (0-2); EOSINOPHILS % (AUTO) 1.2 % (0-6); HEMATOCRIT 30.4 % (36.0-47.0); LYMPHOCYTES % (AUTO) 5.4 % (13-45); MEAN CORPUSCULAR HEMOGLOBIN 30.9 pg (27.0-33.4); MEAN CORPUSCULAR HGB CONC 32.9 g/dL (32.0-36.0); MEAN CORPUSCULAR VOLUME 94 fl (80-97); MONOCYTES % (AUTO) 4.5 % (3-13); PLATELET COUNT 382 10^3/uL (150-450); RED BLOOD COUNT 3.23 10^6/uL (3.72-5.28); RED CELL DISTRIBUTION WIDTH 16.5 % (11.5-14.0); SEGMENTED NEUTROPHILS % (AUTO) 88.2 % (42-78); TOTAL CELLS COUNTED % (AUTO) 100 %; WHITE BLOOD COUNT 14.8 10^3/uL (4.0-10.5)
[2018-04-26] MEDS ORDERED: LEVOFLOXACIN 500 MG/D5W RTU 500 MG/100 ML RTUPB IV ONE (18:04)
[2018-04-26] MEDS ORDERED: VANCOMYCIN HCL INJ 1000 MG VIAL IV ONE (18:04)
[2018-04-26] MEDS ORDERED: IPRATROPIUM/ALBUTEROL 0.5-2.5 MG/3 ML AMPUL NEB ONE (18:05)
--- NOTE | 2018-04-26 18:10 | ER Document Report ---
ED General - General Chief Complaint: Respiratory Distress Stated Complaint: TROUBLE BREATHING Time Seen by Provider: 04/26/18 18:04 Mode of Arrival: Ambulatory Information source: Patient Notes: This is a 52-year-old woman with a history of CML, COPD who presents to the emergency room with fever, cough, shortness of breath. Patient is noted to be a hypoxic on ambulation. TRAVEL OUTSIDE OF THE [place] IN LAST 30 DAYS: No - HPI Onset: Last week Onset/Duration: Gradual Quality of pain: Dull Severity: Moderate Pain Level: 2 Associated symptoms: Chills, Nonproductive cough, Fever, Shortness of breath Exacerbated by: Movement Relieved by: Remaining still Similar symptoms previously: Yes Recently seen / treated by doctor: Yes - Related Data Allergies/Adverse Reactions: oxycodone [From Percocet] Allergy (Mild, Verified 12/15/16 08:16) Hives Penicillins Allergy (Mild, Verified 12/15/16 08:16) Hives Past Medical History - General Information source: Patient - Social History Smoking Status: Current Every Day Smoker Cigarette use (# per day): Yes - 1 pack per day Chew tobacco use (# tins/day): Yes Smoking Education Provided: No Frequency of alcohol use: None Drug Abuse: None Lives with: Family Family History: Reviewed & Not Pertinent Patient has suicidal ideation: No Patient has homicidal ideation: No - Past Medical History Cardiac Medical History: Reports: Hx Congestive Heart Failure, Hx Hypertension Denies: Hx Coronary Artery Disease, Hx Heart Attack Pulmonary Medical History: Reports: Hx Asthma, Hx Bronchitis, Hx Pneumonia Denies: Hx COPD, Hx Tuberculosis Neurological Medical History: Reports: Hx Migraine, Hx Seizures. Denies: Hx Cerebrovascular Accident Endocrine Medical History: Reports: Hx Hypothyroidism Malignancy Medical History: Reports: Hx Leukemia GI Medical History: Reports: Hx Gastroesophageal Reflux Disease Musculoskeletal Medical History: Reports Hx Arthritis - FIBROMYALGIA , Reports Hx Fibromyalgia Psychiatric Medical History: Reports: Hx Anxiety, Hx Depression Past Surgical History: Reports: Hx Cholecystectomy, Hx Hysterectomy, Hx Orthopedic Surgery - knee surgery, Hx Pacemaker, Hx Rectal Surgery - colon resection - Immunizations Immunizations up to date: Yes Hx Diphtheria, Pertussis, Tetanus Vaccination: Yes Hx Pneumococcal Vaccination: 05/03/10 Review of Systems - Review of Systems Constitutional: Chills, Fever EENT: No symptoms reported Cardiovascular: denies: Chest pain, Palpitations, Heart racing Respiratory: Short of breath, Wheezing Gastrointestinal: No symptoms reported Genitourinary: No symptoms reported Female Genitourinary: No symptoms reported Musculoskeletal: See HPI Skin: No symptoms reported Hematologic/Lymphatic: No symptoms reported Neurological/Psychological: No symptoms reported Physical Exam - Vital signs Vitals: Pulse Ox 94 04/26/18 16:59 Notes: Physical exam: GENERAL: 52-year-old female, alert and oriented 3, appears short of breath, coughing. O2 sat 93% on 2 L nasal cannula. Patient did desat into the 70s on ambulation to the bathroom. HEAD: Atraumatic, normocephalic. EYES: Pupils equal round and reactive to light, extraocular movements intact, sclera anicteric, conjunctiva are normal. ENT: TMs normal, nares patent, oropharynx clear without exudates. Moist mucous membranes. NECK: Normal range of motion, supple without obvious mass or JVD. LUNGS: Wheezing, tachypnea, accessory muscle use. HEART: Regular rate and rhythm without murmurs, rubs or gallops. ABDOMEN: Soft, normoactive bowel sounds. No tenderness to palpation. No guarding, no rebound. No masses appreciated. EXTREMITIES: Normal range of motion, no pitting or edema. No clubbing or cyanosis. NEUROLOGICAL: Cranial nerves II through XII grossly intact. Normal speech, moving all extremities. PSYCH: Normal mood, normal affect. SKIN: Warm, Dry, normal turgor, no rashes or lesions noted. Course - Vital Signs Vital signs: Temp Pulse Resp BP Pulse Ox 99.3 F 121 H 21 H 114/70 96 04/26/18 17:20 04/26/18 17:20 04/26/18 21:06 04/26/18 20:01 04/26/18 21:06 - Laboratory Result Diagrams: 04/26/18 17:41 04/26/18 17:41 Laboratory results interpreted by me: 04/26/18 04/26/18 04/26/18 17:41 17:41 18:06 WBC 14.8 H RBC 3.23 L Hgb 10.0 L Hct 30.4 L RDW 16.5 H Seg Neutrophils % 88.2 H Lymphocytes % 5.4 L Absolute Neutrophils 13.0 H Potassium 3.5 L Est GFR (Non-Af Amer) 56 L Glucose 135 H Total Protein 6.2 L Albumin 3.4 L Urine Blood SMALL H - Diagnostic Test Radiology reviewed: Image reviewed, Reports reviewed - No obvious infiltrate CTA shows bilateral pulmonary infiltrates. No pulmonary embolism. - EKG Interpretation by In Rate: Tachycardia - EKG shows sinus tachycardia with a ventricular rate of 119, poor R-wave progression and nonspecific ST changes. Critical Care Note - Critical Care Note Total time excluding time spent on procedures (mins): 60 Discharge - Discharge Clinical Impression: COPD exacerbation, Febrile illness, Pneumonia Condition: Stable Disposition: ADMITTED INPATIENT Admitting Provider: Fany Unit Admitted: [facility]
[2018-04-26 18:16] LABS: ALANINE AMINOTRANSFERASE 18 U/L (9-52); ALBUMIN 3.4 g/dL (3.5-5.0); ALKALINE PHOSPHATASE 103 U/L (38-126); ANION GAP 13 (5-19); ASPARTATE AMINO TRANSFERASE 28 U/L (14-36); BILIRUBIN,DIRECT 0.4 mg/dL (0.0-0.4); BILIRUBIN,TOTAL 0.5 mg/dL (0.2-1.3); BLOOD UREA NITROGEN 9 mg/dL (7-20); CALCIUM 9.4 mg/dL (8.4-10.2); CARBON DIOXIDE 23 mmol/L (22-30); CHLORIDE 107 mmol/L (98-107); GLUCOSE 135 mg/dL (75-110); POTASSIUM 3.5 mmol/L (3.6-5.0); SODIUM 142.7 mmol/L (137-145); TOTAL PROTEIN 6.2 g/dL (6.3-8.2)
[2018-04-26] MEDS ORDERED: AZTREONAM INJ 1 GM VIAL IV ONE ×2 (18:22→21:00)
[2018-04-26 18:28] LABS: APPEARANCE,URINE CLEAR; BILIRUBIN,URINE NEGATIVE (NEGATIVE); COLOR,URINE YELLOW; GLUCOSE, URINE NEGATIVE (NEGATIVE); KETONES,URINE NEGATIVE (NEGATIVE); LEUKOCYTE ESTERASE,URINE NEGATIVE (NEGATIVE); NITRITE,URINE NEGATIVE (NEGATIVE); PROTEIN,URINE NEGATIVE (NEGATIVE); URINE SPECIFIC GRAVITY 1.006; UROBILINOGEN,URINE NEGATIVE mg/dL (<2.0)
--- NOTE | 2018-04-26 18:37 | RADIOLOGY REPORT (SQ) ---
EXAM DESCRIPTION: CHEST SINGLE VIEW COMPLETED DATE/TIME: 04/26/2018 6:29 pm REASON FOR STUDY: shortness of breath COMPARISON: 08/06/2016 EXAM PARAMETERS: NUMBER OF VIEWS: One view. TECHNIQUE: Single frontal radiographic view of the chest acquired. RADIATION DOSE: NA LIMITATIONS: None. FINDINGS: LUNGS AND PLEURA: No opacities, masses or pneumothorax. No pleural effusion. MEDIASTINUM AND HILAR STRUCTURES: No masses. Contour normal. HEART AND VASCULAR STRUCTURES: Heart normal in size. Normal vasculature. BONES: No acute findings. HARDWARE: None in the chest. OTHER: No other significant finding. IMPRESSION: NO ACUTE RADIOGRAPHIC FINDING IN THE CHEST. TECHNICAL DOCUMENTATION: JOB ID: [id number] [employer]- All Rights Reserved Reading location - IP/workstation name: [email or web address]
[2018-04-26] MEDS ORDERED: MORPHINE SULFATE 10 MG/ML INJ IV ONE (18:52)
--- NOTE | 2018-04-26 21:57 | EKG REPORT ---
SEVERITY:- BORDERLINE ECG - SINUS TACHYCARDIA BORDERLINE R WAVE PROGRESSION, ANTERIOR LEADS BORDERLINE T ABNORMALITIES, DIFFUSE LEADS : Confirmed by: Viv Reese MD 26-Apr-2018 21:56:48
--- NOTE | 2018-04-26 22:05 | RADIOLOGY REPORT (SQ) ---
CT CHEST ANGIOGRAPHY WITHOUT THEN WITH IV CONTRAST HISTORY: Hypoxia. COMPARISON: 04/22/2014 TECHNIQUE: CT scan of the chest. This exam was performed according to our departmental dose-optimization program, which includes automated exposure control, adjustment of the mA and/or kV according to patient size and/or use of iterative reconstruction technique. 3-D MIP images were obtained in coronal and sagittal reconstructions. FINDINGS: No acute pulmonary embolism is seen. No evidence of right heart strain. No mediastinal, hilar, or axillary adenopathy is seen. Thoracic aorta is unremarkable. No pericardial effusion. Diffuse bilateral groundglass opacities throughout both lungs, right greater than left. The osseous structures are intact. The visualized upper abdomen is unremarkable. IMPRESSION: No acute pulmonary embolism. Diffuse bilateral groundglass opacities throughout both lungs, right greater than left. Differential diagnosis includes multifocal infection, inflammation, edema, or ARDS in the correct clinical setting.
[2018-04-26] MEDS ORDERED: VANCOMYCIN HCL INJ 1000 MG VIAL IV PRN (22:22)
[2018-04-27] MEDS: GUAIFENESIN SYRP 200 MG/10 ML UDC PO PRN ×2 (01:22→16:50)
[2018-04-27] MEDS: HYDROCODONE/ACETAMINOPHEN 5-325 MG TABLET PO PRN ×3 (02:14→17:02)
[2018-04-27] MEDS: NORMAL SALINE 1000 ML 1,000 ML IV PRN (02:15)
[2018-04-27] MEDS: VANCOMYCIN HCL 1,000 MG in DEXTROSE 5%-WATER 250 ML IV SCH ×2 (05:25→17:02)
[2018-04-27] MEDS ORDERED: (PENDING PHARMACY ID) (Aripiprazole [Abilify 15 Mg Tablet] 15 MG) PO SCH (10:00)
[2018-04-27] MEDS: FLUTICASONE NASAL SPRAY 50 MCG/SPRY 120 SPRAY/16 GM NASL SCH (10:00)
[2018-04-27] MEDS ORDERED: IMATINIB MESYLATE 400 MG PO SCH (10:00)
[2018-04-27] MEDS ORDERED: (PENDING PHARMACY ID) (Buspirone Hcl [Buspirone Hcl] 15 MG) PO SCH (10:00)
[2018-04-27] MEDS ORDERED: METOPROLOL TARTRATE 25 MG TABLET PO SCH (10:00)
[2018-04-27] MEDS ORDERED: GABAPENTIN 300 MG CAPSULE PO SCH (10:00)
[2018-04-27] MEDS: LEVETIRACETAM 500 MG TABLET PO SCH ×2 (10:01→22:02)
[2018-04-27] MEDS: FLUOXETINE HCL 20 MG CAPSULE PO SCH (10:01)
[2018-04-27] MEDS: ARIPIPRAZOLE 5 MG TABLET PO SCH (10:01)
[2018-04-27] MEDS: PROMETHAZINE HCL 25 MG TABLET PO SCH ×2 (10:01→22:01)
[2018-04-27] MEDS: CLOPIDOGREL BISULFATE 75 MG TABLET PO SCH (10:01)
[2018-04-27] MEDS: BUSPIRONE HCL 10 MG TABLET PO SCH ×2 (10:01→17:03)
[2018-04-27] MEDS: BENZTROPINE MESYLATE 1 MG TABLET PO SCH ×2 (10:02→17:03)
[2018-04-27] MEDS: METOPROLOL TARTRATE 25 MG TABLET PO SCH ×2 (10:02→22:01)
[2018-04-27] MEDS: AZTREONAM 1 GM in DEXTROSE 5%-WATER 50 ML IV SCH ×2 (10:03→22:05)
[2018-04-27] MEDS: GABAPENTIN 300 MG CAPSULE PO SCH ×2 (14:04→22:01)
[2018-04-27] MEDS: LEVOFLOXACIN 500 MG/D5W RTU 500 MG/100 ML RTUPB IV SCH (17:43)
--- NOTE | 2018-04-27 19:46 | PDOC H&P ---
History of Present Illness Admission Date/PCP: 04/26/18 20:07 TATY FREEMAN Patient complains of: Difficulty with breathing History of Present Illness: LAURIE SHEPARD is a 52 year old female known to my practice who was seen and advised hospitalization during her office visit evaluation for same complaint. She was found to have associated tachycardia, leukocytosis and hypoxemia. Despite adequate explanation on need for hospitalization at the presence f her daughter patient insisted upon coming home. She was prescribed Bactrim DS during that office visit. She subsequently presented to the ED with same complaint after taking care of her dog's need. She was found to have similar presentation. She did ruled out for pulmonary embolism. She demonstrate features suggestive of widespread air space disease process. She eventually agreed to hospitalization. Her morbidities include CML, CHF, HTN, Hypothyroidism , Seizure disorder, Migraine headache, GERD, Depression, and fibromyalgia. Past Medical History Cardiac Medical History: Reports: Congestive Heart Failure, Hypertension Denies: Coronary Artery Disease, Myocardial Infarction Pulmonary Medical History: Reports: Asthma, Bronchitis, Pneumonia Denies: Chronic Obstructive Pulmonary Disease (COPD), Tuberculosis Neurological Medical History: Reports: Migraine, Seizures Endocrine Medical History: Reports: Hypothyroidism Malignancy Medical History: Reports: Leukemia GI Medical History: Reports: Gastroesophageal Reflux Disease Musculoskeltal Medical History: Reports: Arthritis - FIBROMYALGIA , Fibromyalgia Psychiatric Medical History: Reports: Depression Hematology: Reports: Anemia Past Surgical History Past Surgical History: Reports: Cholecystectomy, Hysterectomy, Orthopedic Surgery - knee surgery, Pacemaker Social History Lives with: Family Smoking Status: Current Every Day Smoker Cigarettes Packs Per Day: 1 Frequency of Alcohol Use: None Hx Recreational Drug Use: No Drugs: None Hx Prescription Drug Abuse: No - Advance Directive Resuscitation Status: Full Code Family History Family History: Reviewed & Not Pertinent Parental Family History Reviewed: Yes Children Family History Reviewed: Yes Sibling(s) Family History Reviewed.: Yes Medication/Allergy Home Medications: Atorvastatin Calcium 40 mg PO QHS 02/10/13 Esomeprazole Magnesium [Nexium] 40 mg PO DAILY 02/10/13 Imatinib Mesylate [Gleevec] 400 mg PO DAILY 02/10/13 Levetiracetam [Keppra] 1,000 mg PO BID 04/22/14 Gabapentin [Neurontin 300 mg Capsule] 300 mg PO TID 11/17/14 Clopidogrel Bisulfate [Plavix 75 mg Tablet] 75 mg PO DAILY 11/30/15 Metoprolol Tartrate 12.5 mg PO BID 11/30/15 Levothyroxine Sodium 100 mcg PO DAILY 01/08/16 Buspirone HCl 15 mg PO BID 07/29/16 Zolpidem Tartrate 20 mg PO DAILY PRN 07/29/16 Fluoxetine HCl [Prozac 20 mg Capsule] 40 mg PO DAILY 12/10/16 Promethazine HCl 25 mg PO Q12 12/10/16 Sumatriptan Succinate [Imitrex] 25 mg PO DAILY PRN 12/10/16 Amitriptyline HCl [Elavil 10 Mg Tablet] 10 mg PO QHS 04/26/18 Aripiprazole [Abilify 15 mg Tablet] 15 mg PO DAILY 04/26/18 Benztropine Mesylate [Cogentin 1 mg Tablet] 1 tab PO BID 04/26/18 Fluticasone Propionate [Flonase Nasal [place] 50 Mcg/[place] 16 gm] 2 sprays NASL DAILY 04/26/18 Hydrocodone/Acetaminophen [[place] 7.5-325 mg Tablet] 1 tab PO Q8HP PRN 04/26/18 Naloxone HCl 1 mg IJ PRN PRN 04/26/18 Naloxone HCl [Narcan] 4 mg NS PRN PRN 04/26/18 Prazosin HCl 1 mg PO QHS 04/26/18 Allergies/Adverse Reactions: oxycodone [From Percocet] Allergy (Mild, Verified 12/15/16 08:16) Hives Penicillins Allergy (Mild, Verified 12/15/16 08:16) Hives Review of Systems Constitutional: PRESENT: chills, fever(s) Cardiovascular: PRESENT: dyspnea on exertion Respiratory: PRESENT: cough, sputum Gastrointestinal: ABSENT: abdominal pain, constipation, diarrhea, hematemesis, hematochezia, nausea, vomiting Genitourinary: ABSENT: dysuria, hematuria Musculoskeletal: ABSENT: joint swelling Neurological: ABSENT: abnormal gait, abnormal speech, confusion, dizziness, focal weakness, syncope Endocrine: ABSENT: cold intolerance, heat intolerance, polydipsia, polyuria Hematologic/Lymphatic: ABSENT: easy bleeding, easy bruising, lymphadenopathy Allergic/Immunologic: ABSENT: seasonal rhinorrhea Physical Exam Vital Signs: Temp Pulse Resp BP Pulse Ox 98.0 F 86 20 113/60 97 04/27/18 16:11 04/27/18 16:11 04/27/18 16:11 04/27/18 16:11 04/27/18 16:11 Intake & Output 04/26/18 04/27/18 04/28/18 06:59 06:59 06:59 Intake Total 337 1027 Output Total 400 Balance -63 1027 Weight 59.1 kg General appearance: PRESENT: no acute distress - remain on supplemental oxygen presently at 2L/min via nasal cannula Head exam: PRESENT: atraumatic, normocephalic Eye exam: PRESENT: conjunctiva pink, EOMI, PERRLA. ABSENT: scleral icterus Ear exam: PRESENT: normal external ear exam Mouth exam: PRESENT: moist, tongue midline Throat exam: ABSENT: post pharyngeal erythema, tonsillar erythema, tonsillar exudate, tonsillogmegaly, other Neck exam: PRESENT: full ROM. ABSENT: carotid bruit, JVD, lymphadenopathy, thyromegaly Respiratory exam: PRESENT: crackles - scattered bilaterally, decreased breath sounds - at lung bases Cardiovascular exam: PRESENT: RRR. ABSENT: diastolic murmur, rubs, systolic murmur Vascular exam: PRESENT: normal capillary refill. ABSENT: pallor GI/Abdominal exam: PRESENT: normal bowel sounds, soft. ABSENT: distended, guarding, mass, organolmegaly, rebound, tenderness Rectal exam: PRESENT: deferred Extremities exam: ABSENT: pedal edema Musculoskeletal exam: PRESENT: ambulatory, normal inspection Neurological exam: PRESENT: alert, awake, oriented to person, oriented to place , oriented to time, oriented to situation, CN II-XII grossly intact. ABSENT: motor sensory deficit Psychiatric exam: PRESENT: appropriate affect, normal mood. ABSENT: homicidal ideation, suicidal ideation Skin exam: PRESENT: dry, intact, warm. ABSENT: cyanosis, rash Results Laboratory Results: I reviewed her lab results on [facility] and form significant part of my medical decision making. Impressions: Chest X-Ray 04/26/18 00:00 IMPRESSION: NO ACUTE RADIOGRAPHIC FINDING IN THE CHEST. Chest/Abdomen CTA 04/26/18 20:33 IMPRESSION: No acute pulmonary embolism. Diffuse bilateral groundglass opacities throughout both lungs, right greater than left. Differential diagnosis includes multifocal infection, inflammation, edema, or ARDS in the correct clinical setting. Assessment & Plan - Diagnosis (1) Bilateral pneumonia Qualifiers: Pneumonia type: due to unspecified organism Lung location: unspecified part of lung Qualified Code(s): J18.9 - Pneumonia, unspecified organism Is this a current diagnosis for this admission?: Yes Plan: See admitting attending physician orders. (2) CML (chronic myelocytic leukemia) Is this a current diagnosis for this admission?: Yes Plan: See admitting attending physician orders. (3) Systolic CHF, chronic Is this a current diagnosis for this admission?: Yes Plan: See admitting attending physician orders. (4) HTN (hypertension) Qualifiers: Hypertension type: essential hypertension Qualified Code(s): I10 - Essential (primary) hypertension Is this a current diagnosis for this admission?: Yes Plan: See admitting attending physician orders. (5) HLD (hyperlipidemia) Qualifiers: Hyperlipidemia type: unspecified Qualified Code(s): E78.5 - Hyperlipidemia , unspecified Is this a current diagnosis for this admission?: Yes Plan: See admitting attending physician orders. (6) GERD (gastroesophageal reflux disease) Qualifiers: Esophagitis presence: without esophagitis Qualified Code(s): K21.9 - Gastro -esophageal reflux disease without esophagitis Is this a current diagnosis for this admission?: Yes Plan: See admitting attending physician orders. (7) Mixed anxiety and depressive disorder Is this a current diagnosis for this admission?: Yes Plan: See admitting attending physician orders. (8) Seizure disorder Is this a current diagnosis for this admission?: Yes Plan: See admitting attending physician orders. - Time Time Spent: 50 to 70 Minutes Medications reviewed and adjusted accordingly: Yes Anticipated discharge: Home with Homehealth Within: Other - Inpatient Certification Based on my medical assessment, after consideration of the patient's comorbidities, presenting symptoms, or acuity I expect that the services needed warrant INPATIENT care.: Yes I certify that my determination is in accordance with my understanding of Medicare's requirements for reasonable and necessary INPATIENT services [42 CFR 412.3e].: Yes Medical Necessity: Need Close Monitoring Due to Risk of Patient Decompensation, Need For IV Fluids, Need For Continuous Telemetry Monitoring, Need for IV Antibiotics, Risk of Complication if Not Cared For in Hospital 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
[2018-04-27] MEDS: ATORVASTATIN CALCIUM 40 MG TABLET PO SCH (22:00)
[2018-04-27] MEDS ORDERED: (PENDING PHARMACY ID) (Prazosin Hcl [Prazosin Hcl] 1 MG) PO SCH (22:00)
[2018-04-27] MEDS ORDERED: ATORVASTATIN CALCIUM 10 MG TABLET PO SCH (22:00)
[2018-04-27] MEDS: AMITRIPTYLINE HCL 10 MG TABLET PO SCH (22:01)
[2018-04-27] MEDS: BENZONATATE 100 MG CAPSULE PO SCH (22:01)
[2018-04-28] MEDS: NORMAL SALINE 1000 ML 1,000 ML IV PRN (04:56)
[2018-04-28] MEDS: HYDROCODONE/ACETAMINOPHEN 5-325 MG TABLET PO PRN ×3 (05:22→17:06)
[2018-04-28] MEDS: GABAPENTIN 300 MG CAPSULE PO SCH ×3 (05:22→23:01)
[2018-04-28] MEDS: VANCOMYCIN HCL 1,000 MG in DEXTROSE 5%-WATER 250 ML IV SCH ×2 (05:23→17:05)
[2018-04-28] MEDS: BENZONATATE 100 MG CAPSULE PO SCH ×3 (05:23→23:00)
[2018-04-28] MEDS: LEVOTHYROXINE SODIUM 0.1 MG TABLET PO SCH (05:23)
[2018-04-28 06:17] LABS: ABSOLUTE EOSINOPHILS # (AUTO) 0.5 10^3/uL (0.0-0.6); ABSOLUTE LYMPHOCYTES (AUTO) 0.8 10^3/uL (0.5-4.7); ABSOLUTE MONOCYTES (AUTO) 0.4 10^3/uL (0.1-1.4); BASOPHILS % (AUTO) 0.4 % (0-2); EOSINOPHILS % (AUTO) 5.3 % (0-6); HEMATOCRIT 29.7 % (36.0-47.0); HEMOGLOBIN 9.9 g/dL (12.0-15.5); LYMPHOCYTES % (AUTO) 7.9 % (13-45); MEAN CORPUSCULAR HEMOGLOBIN 31.3 pg (27.0-33.4); MEAN CORPUSCULAR HGB CONC 33.3 g/dL (32.0-36.0); MEAN CORPUSCULAR VOLUME 94 fl (80-97); MONOCYTES % (AUTO) 4.2 % (3-13); PLATELET COUNT 421 10^3/uL (150-450); RED BLOOD COUNT 3.15 10^6/uL (3.72-5.28); RED CELL DISTRIBUTION WIDTH 16.1 % (11.5-14.0); SEGMENTED NEUTROPHILS % (AUTO) 82.2 % (42-78); TOTAL CELLS COUNTED % (AUTO) 100 %; WHITE BLOOD COUNT 9.8 10^3/uL (4.0-10.5)
[2018-04-28 06:36] LABS: ALANINE AMINOTRANSFERASE 26 U/L (9-52); ALBUMIN 2.8 g/dL (3.5-5.0); ALKALINE PHOSPHATASE 96 U/L (38-126); ANION GAP 5 (5-19); ASPARTATE AMINO TRANSFERASE 32 U/L (14-36); BILIRUBIN,DIRECT 0.4 mg/dL (0.0-0.4); BILIRUBIN,TOTAL 0.4 mg/dL (0.2-1.3); BLOOD UREA NITROGEN 7 mg/dL (7-20); CARBON DIOXIDE 28 mmol/L (22-30); CHLORIDE 109 mmol/L (98-107); GLUCOSE 116 mg/dL (75-110); POTASSIUM 3.9 mmol/L (3.6-5.0); SODIUM 142.2 mmol/L (137-145); TOTAL PROTEIN 5.5 g/dL (6.3-8.2)
[2018-04-28] MEDS: FLUOXETINE HCL 20 MG CAPSULE PO SCH (09:35)
[2018-04-28] MEDS: AZTREONAM 1 GM in DEXTROSE 5%-WATER 50 ML IV SCH ×2 (09:35→23:02)
[2018-04-28] MEDS: CLOPIDOGREL BISULFATE 75 MG TABLET PO SCH (09:35)
[2018-04-28] MEDS: FLUTICASONE NASAL SPRAY 50 MCG/SPRY 120 SPRAY/16 GM NASL SCH (09:35)
[2018-04-28] MEDS: LEVETIRACETAM 500 MG TABLET PO SCH ×2 (09:36→23:01)
[2018-04-28] MEDS: BENZTROPINE MESYLATE 1 MG TABLET PO SCH ×2 (09:36→17:05)
[2018-04-28] MEDS: ARIPIPRAZOLE 5 MG TABLET PO SCH (09:36)
[2018-04-28] MEDS: BUSPIRONE HCL 10 MG TABLET PO SCH ×2 (09:36→17:05)
[2018-04-28] MEDS: METOPROLOL TARTRATE 25 MG TABLET PO SCH ×2 (09:36→23:01)
[2018-04-28] MEDS: PROMETHAZINE HCL 25 MG TABLET PO SCH ×2 (09:36→23:01)
[2018-04-28] MEDS: LEVOFLOXACIN 500 MG/D5W RTU 500 MG/100 ML RTUPB IV SCH (17:05)
[2018-04-28] MEDS: GUAIFENESIN SYRP 200 MG/10 ML UDC PO PRN ×2 (17:06→23:13)
--- NOTE | 2018-04-28 20:03 | PDOC PROGRESS REPORT ---
Subjective Progress Note for:: 04/28/18 Subjective:: Breathing is improving. She was able to get off supplemental oxygen for about 1 hour today. No chest pain. No nausea, vomiting or abdominal pain. There is persistent of intermittent coughing. Reason For Visit: DR HAGER Physical Exam Vital Signs: Temp Pulse Resp BP Pulse Ox 98.0 F 85 20 103/47 L 91 L 04/28/18 15:06 04/28/18 15:06 04/28/18 15:06 04/28/18 15:06 04/28/18 15:06 Intake & Output 04/27/18 04/28/18 04/29/18 06:59 06:59 06:59 Intake Total 337 2177 1737 Output Total 400 500 Balance -63 2177 1237 Weight 59.1 kg General appearance: PRESENT: no acute distress, well-developed, well-nourished Head exam: PRESENT: atraumatic, normocephalic Eye exam: PRESENT: conjunctiva pink, EOMI, PERRLA. ABSENT: scleral icterus Ear exam: PRESENT: normal external ear exam Mouth exam: PRESENT: moist Respiratory exam: PRESENT: crackles - bilaterally, decreased breath sounds - at lung bases Cardiovascular exam: PRESENT: RRR. ABSENT: diastolic murmur, rubs, systolic murmur Vascular exam: ABSENT: pallor GI/Abdominal exam: PRESENT: normal bowel sounds, soft. ABSENT: distended, guarding, mass, organolmegaly, rebound, tenderness Extremities exam: ABSENT: pedal edema Musculoskeletal exam: PRESENT: normal inspection Neurological exam: PRESENT: alert, awake, oriented to person, oriented to place , oriented to time, oriented to situation, CN II-XII grossly intact. ABSENT: motor sensory deficit Psychiatric exam: PRESENT: appropriate affect, normal mood. ABSENT: homicidal ideation, suicidal ideation Skin exam: PRESENT: dry, warm Results Laboratory Results: 04/28/18 05:47 04/28/18 05:47 04/28/18 04/28/18 05:47 05:47 WBC 9.8 RBC 3.15 L Hgb 9.9 L Hct 29.7 L MCV 94 MCH 31.3 MCHC 33.3 RDW 16.1 H Plt Count 421 Seg Neutrophils % 82.2 H Lymphocytes % 7.9 L Monocytes % 4.2 Eosinophils % 5.3 Basophils % 0.4 Absolute Neutrophils 8.0 Absolute Lymphocytes 0.8 Absolute Monocytes 0.4 Absolute Eosinophils 0.5 Absolute Basophils 0.0 Sodium 142.2 Potassium 3.9 Chloride 109 H Carbon Dioxide 28 Anion Gap 5 BUN 7 Creatinine 0.86 Est GFR ( Amer) > 60 Est GFR (Non-Af Amer) > 60 Glucose 116 H Calcium 9.0 Total Bilirubin 0.4 AST 32 ALT 26 Alkaline Phosphatase 96 Total Protein 5.5 L Albumin 2.8 L Impressions: Chest X-Ray 04/26/18 00:00 IMPRESSION: NO ACUTE RADIOGRAPHIC FINDING IN THE CHEST. Chest/Abdomen CTA 04/26/18 20:33 IMPRESSION: No acute pulmonary embolism. Diffuse bilateral groundglass opacities throughout both lungs, right greater than left. Differential diagnosis includes multifocal infection, inflammation, edema, or ARDS in the correct clinical setting. Assessment & Plan - Diagnosis (1) Bilateral pneumonia Qualifiers: Pneumonia type: due to unspecified organism Lung location: unspecified part of lung Qualified Code(s): J18.9 - Pneumonia, unspecified organism Is this a current diagnosis for this admission?: Yes Plan: Continue current antibiotic therapy. Follow up on blood culture findings. No growth to date. Sputum culture suggestive of possible Yeast infection. Possible in view of her immunosuppresive state from CML. Add oral Diflucan therapy to management. (2) CML (chronic myelocytic leukemia) Is this a current diagnosis for this admission?: Yes Plan: Continue current supportive management (3) Systolic CHF, chronic Is this a current diagnosis for this admission?: Yes Plan: Continue current medication management. (4) HTN (hypertension) Qualifiers: Hypertension type: essential hypertension Qualified Code(s): I10 - Essential (primary) hypertension Is this a current diagnosis for this admission?: Yes Plan: Continue current medication management. (5) HLD (hyperlipidemia) Qualifiers: Hyperlipidemia type: unspecified Qualified Code(s): E78.5 - Hyperlipidemia , unspecified Is this a current diagnosis for this admission?: Yes Plan: Continue current medication management. (6) GERD (gastroesophageal reflux disease) Qualifiers: Esophagitis presence: without esophagitis Qualified Code(s): K21.9 - Gastro -esophageal reflux disease without esophagitis Is this a current diagnosis for this admission?: Yes Plan: Continue current medication management. (7) Mixed anxiety and depressive disorder Is this a current diagnosis for this admission?: Yes Plan: Continue current medication management. (8) Seizure disorder Is this a current diagnosis for this admission?: Yes Plan: Continue current medication management. - Time Time Spent with patient: 25-34 minutes Anticipated discharge: Home Within: Other - Inpatient Certification Based on my medical assessment, after consideration of the patient's comorbidities, presenting symptoms, or acuity I expect that the services needed warrant INPATIENT care.: Yes I certify that my determination is in accordance with my understanding of Medicare's requirements for reasonable and necessary INPATIENT services [42 CFR 412.3e].: Yes Medical Necessity: Need Close Monitoring Due to Risk of Patient Decompensation, Need For IV Fluids, Need For Continuous Telemetry Monitoring, Need for IV Antibiotics 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
[2018-04-28] MEDS: ATORVASTATIN CALCIUM 40 MG TABLET PO SCH (23:01)
[2018-04-28] MEDS: AMITRIPTYLINE HCL 10 MG TABLET PO SCH (23:02)
[2018-04-28] MEDS: FLUCONAZOLE 100 MG TABLET PO SCH (23:05)
[2018-04-29] MEDS: HYDROCODONE/ACETAMINOPHEN 5-325 MG TABLET PO PRN ×3 (01:25→22:04)
[2018-04-29] MEDS: LEVOTHYROXINE SODIUM 0.1 MG TABLET PO SCH (05:32)
[2018-04-29] MEDS: BENZONATATE 100 MG CAPSULE PO SCH ×3 (05:32→21:53)
[2018-04-29] MEDS: GABAPENTIN 300 MG CAPSULE PO SCH ×3 (05:32→21:53)
[2018-04-29] MEDS: VANCOMYCIN HCL 1,000 MG in DEXTROSE 5%-WATER 250 ML IV SCH (05:33)
[2018-04-29] MEDS: BUSPIRONE HCL 10 MG TABLET PO SCH ×2 (09:03→17:02)
[2018-04-29] MEDS: ARIPIPRAZOLE 5 MG TABLET PO SCH (09:03)
[2018-04-29] MEDS: AZTREONAM 1 GM in DEXTROSE 5%-WATER 50 ML IV SCH ×2 (09:03→21:51)
[2018-04-29] MEDS: LEVETIRACETAM 500 MG TABLET PO SCH ×2 (09:04→21:52)
[2018-04-29] MEDS: METOPROLOL TARTRATE 25 MG TABLET PO SCH (09:04)
[2018-04-29] MEDS: FLUTICASONE NASAL SPRAY 50 MCG/SPRY 120 SPRAY/16 GM NASL SCH (09:04)
[2018-04-29] MEDS: BENZTROPINE MESYLATE 1 MG TABLET PO SCH ×2 (09:04→17:02)
[2018-04-29] MEDS: FLUOXETINE HCL 20 MG CAPSULE PO SCH (09:05)
[2018-04-29] MEDS: PROMETHAZINE HCL 25 MG TABLET PO SCH ×2 (09:05→21:53)
[2018-04-29] MEDS: CLOPIDOGREL BISULFATE 75 MG TABLET PO SCH (09:05)
[2018-04-29] MEDS: GUAIFENESIN SYRP 200 MG/10 ML UDC PO PRN ×2 (09:06→21:52)
[2018-04-29] MEDS: LEVOFLOXACIN 500 MG/D5W RTU 500 MG/100 ML RTUPB IV SCH (17:02)
[2018-04-29 18:15] LABS: VANCOMYCIN,TROUGH 16.3 ug/mL (5.0-20.0)
--- NOTE | 2018-04-29 19:13 | PDOC PROGRESS REPORT ---
Subjective Progress Note for:: 04/29/18 Subjective:: No chest pain. There are intermittent coughing spells. Remain on supplemental oxygen with episodes of low oxygen saturation at 90% on 3L/min nasal cannula. No nausea, vomiting or abdominal pain. Reason For Visit: DR HAGER Physical Exam Vital Signs: Temp Pulse Resp BP Pulse Ox 100.7 F H 105 H 20 119/37 L 90 L 04/29/18 14:43 04/29/18 14:43 04/29/18 14:43 04/29/18 14:43 04/29/18 14:43 Intake & Output 04/28/18 04/29/18 04/30/18 06:59 06:59 06:59 Intake Total 2177 1787 1800 Output Total 500 Balance 2177 1287 1800 Physical Exam: General appearance: PRESENT: no acute distress, well-developed, well-nourished Head exam: PRESENT: atraumatic, normocephalic Eye exam: PRESENT: conjunctiva pink, EOMI, PERRLA. ABSENT: scleral icterus Ear exam: PRESENT: normal external ear exam Mouth exam: PRESENT: moist Respiratory exam: PRESENT: improving basal region crackles - bilaterally Cardiovascular exam: PRESENT: RRR. ABSENT: diastolic murmur, rubs, systolic murmur Vascular exam: ABSENT: pallor GI/Abdominal exam: PRESENT: normal bowel sounds, soft. ABSENT: distended, guarding, mass, organomegaly, rebound, tenderness Extremities exam: ABSENT: pedal edema Musculoskeletal exam: PRESENT: normal inspection Neurological exam: PRESENT: alert, awake, oriented to person, oriented to place , oriented to time, oriented to situation, CN II-XII grossly intact. ABSENT: motor sensory deficit Psychiatric exam: PRESENT: appropriate affect, normal mood. ABSENT: homicidal ideation, suicidal ideation Skin exam: PRESENT: dry, warm Results Laboratory Results: 04/28/18 05:47 04/29/18 17:44 04/29/18 17:44 Creatinine 0.88 Est GFR ( Amer) > 60 Est GFR (Non-Af Amer) > 60 Impressions: Chest X-Ray 04/26/18 00:00 IMPRESSION: NO ACUTE RADIOGRAPHIC FINDING IN THE CHEST. Chest/Abdomen CTA 04/26/18 20:33 IMPRESSION: No acute pulmonary embolism. Diffuse bilateral groundglass opacities throughout both lungs, right greater than left. Differential diagnosis includes multifocal infection, inflammation, edema, or ARDS in the correct clinical setting. Assessment & Plan - Diagnosis (1) Bilateral pneumonia Qualifiers: Pneumonia type: due to unspecified organism Lung location: unspecified part of lung Qualified Code(s): J18.9 - Pneumonia, unspecified organism Is this a current diagnosis for this admission?: Yes (2) CML (chronic myelocytic leukemia) Is this a current diagnosis for this admission?: Yes (3) Systolic CHF, chronic Is this a current diagnosis for this admission?: Yes (4) HTN (hypertension) Qualifiers: Hypertension type: essential hypertension Qualified Code(s): I10 - Essential (primary) hypertension Is this a current diagnosis for this admission?: Yes (5) HLD (hyperlipidemia) Qualifiers: Hyperlipidemia type: unspecified Qualified Code(s): E78.5 - Hyperlipidemia , unspecified Is this a current diagnosis for this admission?: Yes (6) GERD (gastroesophageal reflux disease) Qualifiers: Esophagitis presence: without esophagitis Qualified Code(s): K21.9 - Gastro -esophageal reflux disease without esophagitis Is this a current diagnosis for this admission?: Yes (7) Mixed anxiety and depressive disorder Is this a current diagnosis for this admission?: Yes (8) Seizure disorder Is this a current diagnosis for this admission?: Yes - Time Time Spent with patient: 25-34 minutes Medications reviewed and adjusted accordingly: Yes Anticipated discharge: Home with Homehealth Within: Other - Inpatient Certification Based on my medical assessment, after consideration of the patient's comorbidities, presenting symptoms, or acuity I expect that the services needed warrant INPATIENT care.: Yes I certify that my determination is in accordance with my understanding of Medicare's requirements for reasonable and necessary INPATIENT services [42 CFR 412.3e].: Yes Medical Necessity: Need Close Monitoring Due to Risk of Patient Decompensation, Need For IV Fluids, Need For Continuous Telemetry Monitoring, Need for IV Antibiotics, Risk of Complication if Not Cared For in Hospital Post Hospital Care: D/C Occupational Therapy Technician Documentation - Plan Summary Plan Summary: See attending physician orders.
[2018-04-29] MEDS ORDERED: VANCOMYCIN HCL 1,000 MG in DEXTROSE 5%-WATER 250 ML IV ONE (21:30)
[2018-04-29] MEDS: AMITRIPTYLINE HCL 10 MG TABLET PO SCH (21:52)
[2018-04-29] MEDS: ATORVASTATIN CALCIUM 40 MG TABLET PO SCH (21:53)
[2018-04-29] MEDS: FLUCONAZOLE 100 MG TABLET PO SCH (21:58)
[2018-04-30] MEDS: METOPROLOL TARTRATE 25 MG TABLET PO SCH ×2 (01:33→09:31)
[2018-04-30] MEDS: HYDROCODONE/ACETAMINOPHEN 5-325 MG TABLET PO PRN ×3 (01:40→15:06)
[2018-04-30 05:51] LABS: ABSOLUTE BASOPHILS # (AUTO) 0.1 10^3/uL (0.0-0.2); ABSOLUTE EOSINOPHILS # (AUTO) 0.4 10^3/uL (0.0-0.6); ABSOLUTE LYMPHOCYTES (AUTO) 1.3 10^3/uL (0.5-4.7); ABSOLUTE MONOCYTES (AUTO) 0.5 10^3/uL (0.1-1.4); ABSOLUTE NEUT (AUTO) 11.7 10^3/uL (1.7-8.2); BASOPHILS % (AUTO) 0.4 % (0-2); EOSINOPHILS % (AUTO) 2.9 % (0-6); HEMATOCRIT 27.3 % (36.0-47.0); HEMOGLOBIN 8.9 g/dL (12.0-15.5); MEAN CORPUSCULAR HEMOGLOBIN 30.9 pg (27.0-33.4); MEAN CORPUSCULAR HGB CONC 32.4 g/dL (32.0-36.0); MEAN CORPUSCULAR VOLUME 95 fl (80-97); MONOCYTES % (AUTO) 3.8 % (3-13); PLATELET COUNT 398 10^3/uL (150-450); RED BLOOD COUNT 2.87 10^6/uL (3.72-5.28); RED CELL DISTRIBUTION WIDTH 16.4 % (11.5-14.0); SEGMENTED NEUTROPHILS % (AUTO) 83.9 % (42-78); TOTAL CELLS COUNTED % (AUTO) 100 %
[2018-04-30] MEDS: LEVOTHYROXINE SODIUM 0.1 MG TABLET PO SCH (06:16)
[2018-04-30] MEDS: GABAPENTIN 300 MG CAPSULE PO SCH ×3 (06:16→22:05)
[2018-04-30] MEDS: BENZONATATE 100 MG CAPSULE PO SCH ×3 (06:16→22:04)
[2018-04-30 06:18] LABS: ANION GAP 6 (5-19); BLOOD UREA NITROGEN 8 mg/dL (7-20); CALCIUM 8.8 mg/dL (8.4-10.2); CARBON DIOXIDE 30 mmol/L (22-30); CHLORIDE 106 mmol/L (98-107); GLUCOSE 118 mg/dL (75-110); POTASSIUM 4.2 mmol/L (3.6-5.0); SODIUM 142.1 mmol/L (137-145)
[2018-04-30] MEDS: NORMAL SALINE 1000 ML 1,000 ML IV PRN (06:21)
[2018-04-30] MEDS: GUAIFENESIN SYRP 200 MG/10 ML UDC PO PRN (07:37)
[2018-04-30] MEDS: VANCOMYCIN HCL 1,000 MG in DEXTROSE 5%-WATER 250 ML IV SCH ×3 (08:45→23:14)
[2018-04-30] MEDS: PROMETHAZINE HCL 25 MG TABLET PO SCH ×2 (09:33→22:04)
[2018-04-30] MEDS: BENZTROPINE MESYLATE 1 MG TABLET PO SCH ×2 (09:34→17:42)
[2018-04-30] MEDS: ARIPIPRAZOLE 5 MG TABLET PO SCH (09:34)
[2018-04-30] MEDS: BUSPIRONE HCL 10 MG TABLET PO SCH ×2 (09:35→17:42)
[2018-04-30] MEDS: FLUOXETINE HCL 20 MG CAPSULE PO SCH (09:36)
[2018-04-30] MEDS: LEVETIRACETAM 500 MG TABLET PO SCH ×2 (09:37→22:05)
[2018-04-30] MEDS: CLOPIDOGREL BISULFATE 75 MG TABLET PO SCH (09:37)
[2018-04-30] MEDS: FLUTICASONE NASAL SPRAY 50 MCG/SPRY 120 SPRAY/16 GM NASL SCH (09:38)
[2018-04-30] MEDS: AZTREONAM 1 GM in DEXTROSE 5%-WATER 50 ML IV SCH ×2 (10:55→22:04)
--- NOTE | 2018-04-30 13:23 | Physician Advisory Note ---
Physician Advisor ProgressNote .: Pursuant to the plan for [facility], I have reviewed the medical record for this patient. Physician Advisor Statement: Please consider documenting, if you agree: 1. "Bilat PNA due to Klebsiella pneumoniae" (need to specify type of organism , or most likely type, whenever there is pneumonia) 2. "Acute Hypoxemic Respiratory Failure, evidenced by accessory muscle use to breathe in ED, along w/hypoxemia into the 80s & 70s that has continued to require O2 supplementation of 1-4L nc". Thanks! CK By the way, the payer is denying INpatient status on this pt, despite fact she is an immunocompromised pt with Klebsiella PNA with new AcRespFailure/O2 needs up to 4L, persistent/recurrent tachypnea/tachycardia, and now with worsening WBC & O2 needs. I hope to have their medical imaging director call me back today to address for you with Peer to Peer call, which should take care of confirming Inpatient status is appropriate.
--- NOTE | 2018-04-30 16:40 | PDOC PROGRESS REPORT ---
Subjective Progress Note for:: 04/30/18 Subjective:: Patient continue to have episodes of coughing with limited expectoration despite Benzonatate usage. She remain on supplemental oxygen with low oxygen saturation at 90% on 3L/min nasal cannula. No chest pain. No abdominal pain, nausea, or vomiting. Reason For Visit: DR REQUEST Physical Exam Vital Signs: Temp Pulse Resp BP Pulse Ox 98.3 F 67 20 91/63 L 86 L 04/30/18 15:05 04/30/18 15:05 04/30/18 15:05 04/30/18 15:05 04/30/18 15:05 Intake & Output 04/29/18 04/30/18 05/01/18 06:59 06:59 06:59 Intake Total 2787 1800 1450 Output Total 500 Balance 2287 1800 1450 Physical Exam: General appearance: PRESENT: no acute distress, well-developed, well-nourished Head exam: PRESENT: atraumatic, normocephalic Eye exam: PRESENT: conjunctiva pink, EOMI, PERRLA. ABSENT: scleral icterus Ear exam: PRESENT: normal external ear exam Mouth exam: PRESENT: moist Respiratory exam: PRESENT: improving basal region crackles - bilaterally Cardiovascular exam: PRESENT: RRR. ABSENT: diastolic murmur, rubs, systolic murmur Vascular exam: ABSENT: pallor GI/Abdominal exam: PRESENT: normal bowel sounds, soft. ABSENT: distended, guarding, mass, organomegaly, rebound, tenderness Extremities exam: ABSENT: pedal edema Musculoskeletal exam: PRESENT: normal inspection Neurological exam: PRESENT: alert, awake, oriented to person, oriented to place , oriented to time, oriented to situation, CN II-XII grossly intact. ABSENT: motor sensory deficit Psychiatric exam: PRESENT: appropriate affect, normal mood. ABSENT: homicidal ideation, suicidal ideation Skin exam: PRESENT: dry, warm Results Laboratory Results: 04/30/18 04:38 04/30/18 04:38 04/29/18 04/30/18 04/30/18 17:44 04:38 04:38 WBC 14.0 H RBC 2.87 L Hgb 8.9 L Hct 27.3 L MCV 95 MCH 30.9 MCHC 32.4 RDW 16.4 H Plt Count 398 Seg Neutrophils % 83.9 H Lymphocytes % 9.0 L Monocytes % 3.8 Eosinophils % 2.9 Basophils % 0.4 Absolute Neutrophils 11.7 H Absolute Lymphocytes 1.3 Absolute Monocytes 0.5 Absolute Eosinophils 0.4 Absolute Basophils 0.1 Sodium 142.1 Potassium 4.2 Chloride 106 Carbon Dioxide 30 Anion Gap 6 BUN 8 Creatinine 0.88 0.89 Est GFR ( Amer) > 60 > 60 Est GFR (Non-Af Amer) > 60 > 60 Glucose 118 H Calcium 8.8 04/27/18 15:26 Sputum Gram Stain - Final 04/27/18 15:26 Sputum Sputum Culture - Final Klebsiella Pneumoniae Yeast, Not Mandy Albicans Reduced Normal Mary Impressions: Chest X-Ray 04/26/18 00:00 IMPRESSION: NO ACUTE RADIOGRAPHIC FINDING IN THE CHEST. Chest/Abdomen CTA 04/26/18 20:33 IMPRESSION: No acute pulmonary embolism. Diffuse bilateral groundglass opacities throughout both lungs, right greater than left. Differential diagnosis includes multifocal infection, inflammation, edema, or ARDS in the correct clinical setting. Assessment & Plan - Diagnosis (1) Klebsiella pneumonia Qualifiers: Laterality: bilateral Is this a current diagnosis for this admission?: Yes Plan: Continue current antibiotic therapy. Follow up on blood culture findings. (2) Acute hypoxemic respiratory failure Is this a current diagnosis for this admission?: Yes Plan: In view of her presenting features in the ED including use of accessory muscles , O2 sat in the 70's and 80's and continue brian for supplemental oxygen up to present time. (3) Bilateral pneumonia Qualifiers: Pneumonia type: due to unspecified organism Lung location: unspecified part of lung Qualified Code(s): J18.9 - Pneumonia, unspecified organism Is this a current diagnosis for this admission?: Yes (4) CML (chronic myelocytic leukemia) Is this a current diagnosis for this admission?: Yes (5) Systolic CHF, chronic Is this a current diagnosis for this admission?: Yes (6) HTN (hypertension) Qualifiers: Hypertension type: essential hypertension Qualified Code(s): I10 - Essential (primary) hypertension Is this a current diagnosis for this admission?: Yes (7) HLD (hyperlipidemia) Qualifiers: Hyperlipidemia type: unspecified Qualified Code(s): E78.5 - Hyperlipidemia , unspecified Is this a current diagnosis for this admission?: Yes (8) GERD (gastroesophageal reflux disease) Qualifiers: Esophagitis presence: without esophagitis Qualified Code(s): K21.9 - Gastro -esophageal reflux disease without esophagitis Is this a current diagnosis for this admission?: Yes (9) Mixed anxiety and depressive disorder Is this a current diagnosis for this admission?: Yes (10) Seizure disorder Is this a current diagnosis for this admission?: Yes - Time Time Spent with patient: 25-34 minutes Medications reviewed and adjusted accordingly: Yes Anticipated discharge: Home with Homehealth Within: Other - Inpatient Certification Based on my medical assessment, after consideration of the patient's comorbidities, presenting symptoms, or acuity I expect that the services needed warrant INPATIENT care.: Yes I certify that my determination is in accordance with my understanding of Medicare's requirements for reasonable and necessary INPATIENT services [42 CFR 412.3e].: Yes Medical Necessity: Need Close Monitoring Due to Risk of Patient Decompensation, Need For IV Fluids, Need For Continuous Telemetry Monitoring, Need for IV Antibiotics, Risk of Complication if Not Cared For in Hospital Post Hospital Care: D/C Silk Screen Frame Assembler Documentation - Plan Summary Plan Summary: Continue IV antibiotic therapy. Follow up on blood culture findings. Maintain on all other current medication management.
[2018-04-30] MEDS: LEVOFLOXACIN 500 MG/D5W RTU 500 MG/100 ML RTUPB IV SCH (17:45)
[2018-04-30 22:03] LABS: ARTERIAL BLOOD BASE EXCESS 1.8 mmol/L; ARTERIAL BLOOD H2CO3 1.32 mmol/L (1.05-1.35); ARTERIAL BLOOD HCO3 26.8 mmol/L (20-24); ARTERIAL BLOOD O2 SATURATION 97.2 % (94-98); ARTERIAL BLOOD PCO2 43.8 mmHg (35-45); ARTERIAL BLOOD PO2 94.4 mmHg (80-100); ARTERIAL BLOOD TOTAL CO2 28.1 mmol/L (21-25)
[2018-04-30] MEDS: ATORVASTATIN CALCIUM 40 MG TABLET PO SCH (22:05)
[2018-04-30] MEDS: FLUCONAZOLE 100 MG TABLET PO SCH (22:05)
[2018-04-30] MEDS: AMITRIPTYLINE HCL 10 MG TABLET PO SCH (22:05)
[2018-04-30 22:06] LABS: ARTERIAL BLOOD FIO2 100%
[2018-04-30] MEDS: IPRATROPIUM/ALBUTEROL 0.5-2.5 MG/3 ML AMPUL NEB PRN (23:03)
[2018-05-01] MEDS: NORMAL SALINE 1000 ML 1,000 ML IV PRN (05:07)
[2018-05-01] MEDS: GABAPENTIN 300 MG CAPSULE PO SCH ×3 (05:07→21:07)
[2018-05-01] MEDS: BENZONATATE 100 MG CAPSULE PO SCH ×3 (05:07→21:06)
[2018-05-01] MEDS: LEVOTHYROXINE SODIUM 0.1 MG TABLET PO SCH (05:07)
[2018-05-01] MEDS: METOPROLOL TARTRATE 25 MG TABLET PO SCH ×3 (05:07→21:14)
[2018-05-01] MEDS: GUAIFENESIN SYRP 200 MG/10 ML UDC PO PRN ×3 (08:11→21:06)
[2018-05-01] MEDS: ACETAMINOPHEN 325 MG TABLET PO PRN ×2 (08:30→17:14)
[2018-05-01] MEDS: VANCOMYCIN HCL 1,000 MG in DEXTROSE 5%-WATER 250 ML IV SCH ×2 (09:39→21:59)
[2018-05-01] MEDS: BENZTROPINE MESYLATE 1 MG TABLET PO SCH ×2 (09:45→18:42)
[2018-05-01] MEDS: FLUOXETINE HCL 20 MG CAPSULE PO SCH (09:45)
[2018-05-01] MEDS: CLOPIDOGREL BISULFATE 75 MG TABLET PO SCH (09:45)
[2018-05-01] MEDS: PROMETHAZINE HCL 25 MG TABLET PO SCH ×2 (09:51→21:06)
[2018-05-01] MEDS: LEVETIRACETAM 500 MG TABLET PO SCH ×2 (09:52→21:07)
[2018-05-01] MEDS: FLUTICASONE NASAL SPRAY 50 MCG/SPRY 120 SPRAY/16 GM NASL SCH (09:53)
[2018-05-01] MEDS: BUSPIRONE HCL 10 MG TABLET PO SCH ×2 (10:03→18:43)
[2018-05-01] MEDS: ARIPIPRAZOLE 5 MG TABLET PO SCH (10:06)
[2018-05-01] MEDS: AZTREONAM 1 GM in DEXTROSE 5%-WATER 50 ML IV SCH ×2 (10:58→21:06)
--- NOTE | 2018-05-01 15:36 | PDOC PROGRESS REPORT ---
Subjective Progress Note for:: 05/01/18 Subjective:: Patient had episodes of oxygen desaturation with need for BiPAP support since last clinical evaluation. No chest pain or palpitation. No abdominal pain, nausea, or vomiting. Reason For Visit: DR HAGER Physical Exam Vital Signs: Temp Pulse Resp BP Pulse Ox 98.2 F 105 H 28 H 102/64 94 05/01/18 15:05 05/01/18 15:05 05/01/18 15:05 05/01/18 15:05 05/01/18 15:05 Intake & Output 04/30/18 05/01/18 05/02/18 06:59 06:59 06:59 Intake Total 1800 2450 750 Balance 1800 2450 750 General appearance: PRESENT: no acute distress - on BiPAP support presently. Head exam: PRESENT: atraumatic, normocephalic Eye exam: PRESENT: conjunctiva pink, EOMI, PERRLA. ABSENT: scleral icterus Ear exam: PRESENT: normal external ear exam Mouth exam: PRESENT: moist Respiratory exam: PRESENT: decreased breath sounds - at lung bases Cardiovascular exam: PRESENT: RRR. ABSENT: diastolic murmur, rubs, systolic murmur Vascular exam: PRESENT: normal capillary refill. ABSENT: pallor GI/Abdominal exam: PRESENT: normal bowel sounds, soft. ABSENT: distended, guarding, mass, organolmegaly, rebound, tenderness Extremities exam: ABSENT: pedal edema Neurological exam: PRESENT: alert, awake, oriented to person, oriented to place , oriented to time, oriented to situation, CN II-XII grossly intact. ABSENT: motor sensory deficit Psychiatric exam: PRESENT: appropriate affect, normal mood. ABSENT: homicidal ideation, suicidal ideation Skin exam: PRESENT: dry, warm. ABSENT: cyanosis, rash Results Laboratory Results: 04/30/18 04:38 04/30/18 04:38 04/30/18 21:45 Carbonic Acid 1.32 HCO3/H2CO3 Ratio 20:1 ABG pH 7.40 ABG pCO2 43.8 ABG pO2 94.4 ABG HCO3 26.8 H ABG O2 Saturation 97.2 ABG Base Excess 1.8 FiO2 100% Impressions: Chest X-Ray 04/26/18 00:00 IMPRESSION: NO ACUTE RADIOGRAPHIC FINDING IN THE CHEST. Chest/Abdomen CTA 04/26/18 20:33 IMPRESSION: No acute pulmonary embolism. Diffuse bilateral groundglass opacities throughout both lungs, right greater than left. Differential diagnosis includes multifocal infection, inflammation, edema, or ARDS in the correct clinical setting. Assessment & Plan - Diagnosis (1) Klebsiella pneumonia Qualifiers: Laterality: bilateral Is this a current diagnosis for this admission?: Yes Plan: Maintain on current antibiotic therapy. Follow up on blood culture findings. No growth x 4 days. (2) Acute hypoxemic respiratory failure Is this a current diagnosis for this admission?: Yes Plan: Obtain ABG. Maintain on high flow nasal supplemental oxygen to keep O2sat at or above 93%. Patient may use BiPAP at night while sleeping. (3) Bilateral pneumonia Qualifiers: Pneumonia type: due to unspecified organism Lung location: unspecified part of lung Qualified Code(s): J18.9 - Pneumonia, unspecified organism Is this a current diagnosis for this admission?: Yes Plan: Continue current antibiotic therapy. Follow up on blood culture findings. (4) CML (chronic myelocytic leukemia) Is this a current diagnosis for this admission?: Yes (5) Systolic CHF, chronic Is this a current diagnosis for this admission?: Yes (6) HTN (hypertension) Qualifiers: Hypertension type: essential hypertension Qualified Code(s): I10 - Essential (primary) hypertension Is this a current diagnosis for this admission?: Yes (7) HLD (hyperlipidemia) Qualifiers: Hyperlipidemia type: unspecified Qualified Code(s): E78.5 - Hyperlipidemia , unspecified Is this a current diagnosis for this admission?: Yes (8) GERD (gastroesophageal reflux disease) Qualifiers: Esophagitis presence: without esophagitis Qualified Code(s): K21.9 - Gastro -esophageal reflux disease without esophagitis Is this a current diagnosis for this admission?: Yes (9) Mixed anxiety and depressive disorder Is this a current diagnosis for this admission?: Yes (10) Seizure disorder Is this a current diagnosis for this admission?: Yes - Time Time Spent with patient: 25-34 minutes Medications reviewed and adjusted accordingly: Yes Anticipated discharge: Home with Homehealth Within: Other - Inpatient Certification Based on my medical assessment, after consideration of the patient's comorbidities, presenting symptoms, or acuity I expect that the services needed warrant INPATIENT care.: Yes I certify that my determination is in accordance with my understanding of Medicare's requirements for reasonable and necessary INPATIENT services [42 CFR 412.3e].: Yes Medical Necessity: Need Close Monitoring Due to Risk of Patient Decompensation, Need For IV Fluids, Need For Continuous Telemetry Monitoring, Need for IV Antibiotics, Risk of Complication if Not Cared For in Hospital Post Hospital Care: D/C Operations Coordinator Documentation - Plan Summary Plan Summary: See attending physician orders.
[2018-05-01] MEDS: LEVOFLOXACIN 500 MG/D5W RTU 500 MG/100 ML RTUPB IV SCH (17:12)
[2018-05-01] MEDS: AMITRIPTYLINE HCL 10 MG TABLET PO SCH (21:06)
[2018-05-01] MEDS: ATORVASTATIN CALCIUM 40 MG TABLET PO SCH (21:06)
[2018-05-01] MEDS: FLUCONAZOLE 100 MG TABLET PO SCH (21:13)
[2018-05-02] MEDS: NORMAL SALINE 1000 ML 1,000 ML IV PRN (02:56)
[2018-05-02] MEDS: BENZONATATE 100 MG CAPSULE PO SCH ×3 (05:12→21:20)
[2018-05-02] MEDS: GABAPENTIN 300 MG CAPSULE PO SCH ×3 (05:12→21:20)
[2018-05-02] MEDS: LEVOTHYROXINE SODIUM 0.1 MG TABLET PO SCH (05:12)
[2018-05-02] MEDS: IPRATROPIUM/ALBUTEROL 0.5-2.5 MG/3 ML AMPUL NEB PRN ×2 (08:19→19:56)
[2018-05-02] MEDS: FLUOXETINE HCL 20 MG CAPSULE PO SCH (10:32)
[2018-05-02] MEDS: METOPROLOL TARTRATE 25 MG TABLET PO SCH ×2 (10:32→21:30)
[2018-05-02] MEDS: CLOPIDOGREL BISULFATE 75 MG TABLET PO SCH (10:32)
[2018-05-02] MEDS: ARIPIPRAZOLE 5 MG TABLET PO SCH (10:32)
[2018-05-02] MEDS: PROMETHAZINE HCL 25 MG TABLET PO SCH ×2 (10:32→21:20)
[2018-05-02] MEDS: VANCOMYCIN HCL 1,000 MG in DEXTROSE 5%-WATER 250 ML IV SCH ×2 (10:33→21:57)
[2018-05-02] MEDS: BENZTROPINE MESYLATE 1 MG TABLET PO SCH ×2 (10:33→17:55)
[2018-05-02] MEDS: BUSPIRONE HCL 10 MG TABLET PO SCH ×2 (10:33→17:55)
[2018-05-02] MEDS: AZTREONAM 1 GM in DEXTROSE 5%-WATER 50 ML IV SCH ×2 (10:33→21:22)
[2018-05-02] MEDS: FLUTICASONE NASAL SPRAY 50 MCG/SPRY 120 SPRAY/16 GM NASL SCH (10:33)
[2018-05-02] MEDS: LEVETIRACETAM 500 MG TABLET PO SCH ×2 (10:57→21:17)
--- NOTE | 2018-05-02 12:27 | PDOC PROGRESS REPORT ---
Subjective Progress Note for:: 05/02/18 Subjective:: Patient remain on high flow nasal cannula supplemental oxygen with good response regarding oxygen saturation. No chest pain or palpitation. No abdominal pain, nausea, or vomiting. No fever or chills. Reason For Visit: DR HAGER Physical Exam Vital Signs: Temp Pulse Resp BP Pulse Ox 98.7 F 99 28 H 98/54 L 96 05/02/18 11:13 05/02/18 11:13 05/02/18 11:13 05/02/18 11:13 05/02/18 11:13 Intake & Output 05/01/18 05/02/18 05/03/18 06:59 06:59 06:59 Intake Total 2450 2486 237 Balance 2450 2486 237 Weight 59.1 kg Physical Exam: General appearance: PRESENT: no acute distress - on BiPAP support presently. Head exam: PRESENT: atraumatic, normocephalic Eye exam: PRESENT: conjunctiva pink, EOMI, PERRLA. ABSENT: scleral icterus Ear exam: PRESENT: normal external ear exam Mouth exam: PRESENT: moist Respiratory exam: PRESENT: decreased breath sounds - at lung bases Cardiovascular exam: PRESENT: RRR. ABSENT: diastolic murmur, rubs, systolic murmur Vascular exam: ABSENT: pallor GI/Abdominal exam: PRESENT: normal bowel sounds, soft. ABSENT: distended, guarding, mass, organomegaly, rebound, tenderness Extremities exam: ABSENT: pedal edema Neurological exam: PRESENT: alert, awake, oriented to person, oriented to place , oriented to time, oriented to situation, CN II-XII grossly intact. ABSENT: motor sensory deficit Psychiatric exam: PRESENT: appropriate affect, normal mood. ABSENT: homicidal ideation, suicidal ideation Skin exam: PRESENT: dry, warm. ABSENT: cyanosis, rash Results Laboratory Results: 04/30/18 04:38 04/30/18 04:38 Impressions: Chest X-Ray 04/26/18 00:00 IMPRESSION: NO ACUTE RADIOGRAPHIC FINDING IN THE CHEST. Chest/Abdomen CTA 04/26/18 20:33 IMPRESSION: No acute pulmonary embolism. Diffuse bilateral groundglass opacities throughout both lungs, right greater than left. Differential diagnosis includes multifocal infection, inflammation, edema, or ARDS in the correct clinical setting. Assessment & Plan - Diagnosis (1) Klebsiella pneumonia Qualifiers: Laterality: bilateral Is this a current diagnosis for this admission?: Yes (2) Acute hypoxemic respiratory failure Is this a current diagnosis for this admission?: Yes (3) Bilateral pneumonia Qualifiers: Pneumonia type: due to unspecified organism Lung location: unspecified part of lung Qualified Code(s): J18.9 - Pneumonia, unspecified organism Is this a current diagnosis for this admission?: Yes (4) CML (chronic myelocytic leukemia) Is this a current diagnosis for this admission?: Yes (5) Systolic CHF, chronic Is this a current diagnosis for this admission?: Yes (6) HTN (hypertension) Qualifiers: Hypertension type: essential hypertension Qualified Code(s): I10 - Essential (primary) hypertension Is this a current diagnosis for this admission?: Yes (7) HLD (hyperlipidemia) Qualifiers: Hyperlipidemia type: unspecified Qualified Code(s): E78.5 - Hyperlipidemia , unspecified Is this a current diagnosis for this admission?: Yes (8) GERD (gastroesophageal reflux disease) Qualifiers: Esophagitis presence: without esophagitis Qualified Code(s): K21.9 - Gastro -esophageal reflux disease without esophagitis Is this a current diagnosis for this admission?: Yes (9) Mixed anxiety and depressive disorder Is this a current diagnosis for this admission?: Yes (10) Seizure disorder Is this a current diagnosis for this admission?: Yes - Time Time Spent with patient: 25-34 minutes Medications reviewed and adjusted accordingly: Yes Anticipated discharge: Home with Homehealth Within: Other - Inpatient Certification Based on my medical assessment, after consideration of the patient's comorbidities, presenting symptoms, or acuity I expect that the services needed warrant INPATIENT care.: Yes I certify that my determination is in accordance with my understanding of Medicare's requirements for reasonable and necessary INPATIENT services [42 CFR 412.3e].: Yes Medical Necessity: Need Close Monitoring Due to Risk of Patient Decompensation, Need For IV Fluids, Need For Continuous Telemetry Monitoring, Need for Nebulizer Therapy and Monitoring of Response, Need for IV Antibiotics, Risk of Complication if Not Cared For in Hospital Post Hospital Care: D/C Cell Attendant Helper Documentation - Plan Summary Plan Summary: Continue current medication management. Repeat chest X ray in AM. Obtain CBC with diff and CMP in AM.
[2018-05-02] MEDS: GUAIFENESIN SYRP 200 MG/10 ML UDC PO PRN (13:28)
[2018-05-02] MEDS: HYDROCODONE/ACETAMINOPHEN 5-325 MG TABLET PO PRN ×2 (13:28→17:56)
[2018-05-02] MEDS ORDERED: ONDANSETRON HCL INJ/PF 4 MG/2 ML SDV IV PRN (15:46)
[2018-05-02] MEDS: LEVOFLOXACIN 500 MG/D5W RTU 500 MG/100 ML RTUPB IV SCH (17:53)
[2018-05-02] MEDS: AMITRIPTYLINE HCL 10 MG TABLET PO SCH (21:17)
[2018-05-02] MEDS: ATORVASTATIN CALCIUM 40 MG TABLET PO SCH (21:20)
[2018-05-02] MEDS: FLUCONAZOLE 100 MG TABLET PO SCH (21:30)
[2018-05-02] MEDS ORDERED: IMATINIB MESYLATE 400 MG PO SCH (22:00)
[2018-05-03] MEDS: NORMAL SALINE 1000 ML 1,000 ML IV PRN (04:09)
[2018-05-03] MEDS: LEVOTHYROXINE SODIUM 0.1 MG TABLET PO SCH (05:37)
[2018-05-03] MEDS: BENZONATATE 100 MG CAPSULE PO SCH ×2 (05:37→15:53)
[2018-05-03] MEDS: GABAPENTIN 300 MG CAPSULE PO SCH (05:37)
[2018-05-03 06:19] LABS: HEMATOCRIT 24.8 % (36.0-47.0); HEMOGLOBIN 8.1 g/dL (12.0-15.5); MEAN CORPUSCULAR HEMOGLOBIN 30.6 pg (27.0-33.4); MEAN CORPUSCULAR HGB CONC 32.5 g/dL (32.0-36.0); MEAN CORPUSCULAR VOLUME 94 fl (80-97); PLATELET COUNT 233 10^3/uL (150-450); RED BLOOD COUNT 2.64 10^6/uL (3.72-5.28); RED CELL DISTRIBUTION WIDTH 16.4 % (11.5-14.0); WHITE BLOOD COUNT 15.9 10^3/uL (4.0-10.5)
[2018-05-03 06:37] LABS: ALANINE AMINOTRANSFERASE 56 U/L (9-52); ALBUMIN 2.5 g/dL (3.5-5.0); ALKALINE PHOSPHATASE 196 U/L (38-126); ANION GAP 9 (5-19); ASPARTATE AMINO TRANSFERASE 79 U/L (14-36); BILIRUBIN,DIRECT 0.4 mg/dL (0.0-0.4); BILIRUBIN,TOTAL 0.5 mg/dL (0.2-1.3); BLOOD UREA NITROGEN 13 mg/dL (7-20); CALCIUM 8.5 mg/dL (8.4-10.2); CARBON DIOXIDE 29 mmol/L (22-30); CHLORIDE 105 mmol/L (98-107); GLUCOSE 130 mg/dL (75-110); POTASSIUM 3.8 mmol/L (3.6-5.0); TOTAL PROTEIN 5.2 g/dL (6.3-8.2)
[2018-05-03 06:49] LABS: ABSOLUTE LYMPHOCYTES# (MANUAL) 0.3 10^3/uL (0.5-4.7); ABSOLUTE NEUTROPHILS# (MANUAL) 15.6 10^3/uL (1.7-8.2); BASOPHILS % (MANUAL) 0 % (0-2); EOSINOPHILS % (MANUAL) 0 % (0-6); LYMPHOCYTES % (MANUAL) 2 % (13-45); MONOCYTES % (MANUAL) 0 % (3-13); SEGMENTED NEUTROPHILS % (MAN) 98 % (42-78); TOTAL CELLS COUNTED 100
[2018-05-03 06:50] LABS: ANISOCYTOSIS 1+; HYPOCHROMASIA 1+; PLATELET COMMENT ADEQUATE; POLYCHROMASIA 1+
[2018-05-03] MEDS ORDERED: PHARMACY COMMUNICATION ORDER MC NR (07:00)
[2018-05-03 07:10] LABS: ARTERIAL BLOOD BASE EXCESS -2.6 mmol/L; ARTERIAL BLOOD H2CO3 1.85 mmol/L (1.05-1.35); ARTERIAL BLOOD HCO3 25.3 mmol/L (20-24); ARTERIAL BLOOD O2 SATURATION 92.8 % (94-98); ARTERIAL BLOOD PCO2 61.5 mmHg (35-45); ARTERIAL BLOOD PH 7.23 (7.35-7.45); ARTERIAL BLOOD PO2 77.6 mmHg (80-100); ARTERIAL BLOOD TOTAL CO2 27.2 mmol/L (21-25)
[2018-05-03 07:12] LABS: ARTERIAL BLOOD FIO2 100%
[2018-05-03] MEDS ORDERED: PROPOFOL INJ 200 MG/20 ML VIAL IV ONE (07:18)
[2018-05-03] MEDS ORDERED: NOREPINEPHRINE BITARTRATE INJ/PF 4 MG/4 ML SDV IV ONE (07:27)
[2018-05-03] MEDS ORDERED: ACETAMINOPHEN SOLN 325 MG/10.15 ML UDCUP NG PRN (07:28)
[2018-05-03] MEDS ORDERED: GUAIFENESIN SYRP 200 MG/10 ML UDC NG PRN (07:30)
[2018-05-03] MEDS ORDERED: ACETAMINOPHEN 325 MG TABLET NG PRN (07:30)
[2018-05-03] MEDS ORDERED: HYDROCODONE/ACETAMINOPHEN 5-325 MG TABLET NG PRN (07:30)
[2018-05-03] MEDS ORDERED: PROPOFOL 1,000 MG/100 ML INFUS..BTL IV ONE (07:38)
--- NOTE | 2018-05-03 07:40 | RADIOLOGY REPORT (SQ) ---
EXAM DESCRIPTION: XR CHEST 1 VIEW COMPLETED DATE/TME: 05/03/2018 00:00 CLINICAL HISTORY: 52 years Female, intubation COMPARISON: CT, 04/26/2018. NUMBER OF VIEWS/TECHNIQUE: 1/AP FINDINGS: Adequate lung volume, moderate to severe diffuse interstitial and airspace opacity of both lung cazares, mildly enlarged cardiac silhouette, adequate appearing and tracheal tube tip is 3.1 cm from the fatmata, likely adequate enteric tube with tip at the left hemidiaphragm with partial left hemidiaphragmatic eventration, overlying leads and pads. No gross skeletal defect. No pneumothorax. IMPRESSION: Worsened moderate to severe diffuse pulmonary edema pattern. Differential diagnosis includes multifocal pneumonia.
[2018-05-03 08:03] LABS: AMORPHOUS SEDIMENT,URINE 2+ /HPF; APPEARANCE,URINE TURBID; BILIRUBIN,URINE NEGATIVE (NEGATIVE); GLUCOSE, URINE 50 mg/dL (NEGATIVE); KETONES,URINE NEGATIVE (NEGATIVE); LEUKOCYTE ESTERASE,URINE NEGATIVE (NEGATIVE); NITRITE,URINE NEGATIVE (NEGATIVE); PROTEIN,URINE 100 mg/dL (NEGATIVE); URINE SPECIFIC GRAVITY 1.021; UROBILINOGEN,URINE NEGATIVE mg/dL (<2.0)
[2018-05-03 08:05] LABS: CREATINE KINASE MB 12.6 ng/mL (<4.55)
[2018-05-03 08:06] LABS: COLOR,URINE YELLOW
--- NOTE | 2018-05-03 08:17 | EKG REPORT ---
SEVERITY:- BORDERLINE ECG - SINUS TACHYCARDIA BORDERLINE T ABNORMALITIES, INFERIOR LEADS BORDERLINE PROLONGED QT INTERVAL : Confirmed by: Kassie Mcdowell 03-May-2018 08:17:36
[2018-05-03 08:20] LABS: TROPONIN I 3.23 ng/mL
[2018-05-03] MEDS ORDERED: DOPAMINE HCL 800 MG/D5W 250 ML IV PRN (08:22)
[2018-05-03 08:24] LABS: ARTERIAL BLOOD BASE EXCESS -5.2 mmol/L; ARTERIAL BLOOD FIO2 100%; ARTERIAL BLOOD H2CO3 1.57 mmol/L (1.05-1.35); ARTERIAL BLOOD HCO3 22.5 mmol/L (20-24); ARTERIAL BLOOD O2 SATURATION 79.8 % (94-98); ARTERIAL BLOOD PCO2 52.2 mmHg (35-45); ARTERIAL BLOOD PH 7.25 (7.35-7.45); ARTERIAL BLOOD PO2 50.8 mmHg (80-100); ARTERIAL BLOOD TOTAL CO2 24.1 mmol/L (21-25)
[2018-05-03] MEDS ORDERED: IMATINIB PO SCH (08:30)
[2018-05-03] MEDS ORDERED: PROPOFOL 1,000 MG/100 ML INFUS..BTL IV PRN (08:31)
[2018-05-03] MEDS: DEXTROSE 5%-WATER 250 ML with NOREPINEPHRINE BITARTRATE 4 MG IV PRN ×4 (08:55→16:27)
[2018-05-03] MEDS ORDERED: DEXTROSE 5%-LACTATED RINGERS 1,000 ML IV PRN ×2 (09:00→11:24)
[2018-05-03] MEDS ORDERED: LEVALBUTEROL HCL NEB 1.25 MG/3 ML AMPUL NEB PRN (09:00)
[2018-05-03] MEDS: IPRATROPIUM/ALBUTEROL 0.5-2.5 MG/3 ML AMPUL NEB PRN ×2 (09:23→14:14)
[2018-05-03] MEDS ORDERED: FLUOXETINE HCL 20 MG CAPSULE NG SCH (10:00)
[2018-05-03] MEDS ORDERED: CLOPIDOGREL BISULFATE 75 MG TABLET NG SCH (10:00)
[2018-05-03] MEDS ORDERED: ARIPIPRAZOLE 5 MG TABLET NG SCH (10:00)
[2018-05-03] MEDS ORDERED: PROMETHAZINE HCL 25 MG TABLET NG SCH (10:00)
[2018-05-03] MEDS ORDERED: NORMAL SALINE 1000 ML 1,000 ML IV PRN (10:00)
[2018-05-03] MEDS ORDERED: BUSPIRONE HCL 10 MG TABLET NG SCH (10:00)
[2018-05-03] MEDS ORDERED: METOPROLOL TARTRATE 25 MG TABLET NG SCH (10:00)
[2018-05-03] MEDS ORDERED: BENZTROPINE MESYLATE 1 MG TABLET NG SCH (10:00)
--- NOTE | 2018-05-03 10:30 | PDOC CONSULTATION ---
Consultation Consult Date: 05/03/18 Attending physician:: TATY MILLARD Consult reason:: Acute respiratory failure/ARDS History of Present Illness Admission Date/PCP: 04/26/18 20:07 TAYT MILLARD History of Present Illness: LAURIE SHEPARD is a 52 year old female, status post DERMATOLOGY PHYSICIAN was admitted several days ago after initially refusing hospitalization she came later under the urging of her primary care physician she was on BiPAP upstairs and became progressively short of breath and subsequently was transferred down stairs and intubated. It was some trouble oxygenating patient currently has saturation of 100% on FiO2 of 100% Past Medical History Cardiac Medical History: Reports: Congestive Heart Failure, Hypertension Denies: Coronary Artery Disease, Myocardial Infarction Pulmonary Medical History: Reports: Asthma, Bronchitis, Pneumonia Denies: Chronic Obstructive Pulmonary Disease (COPD), Tuberculosis Neurological Medical History: Reports: Migraine, Seizures Endocrine Medical History: Reports: Hypothyroidism Malignancy Medical History: Reports: Leukemia GI Medical History: Reports: Gastroesophageal Reflux Disease Musculoskeltal Medical History: Reports: Arthritis - FIBROMYALGIA , Fibromyalgia Psychiatric Medical History: Reports: Depression Hematology: Reports: Anemia Past Surgical History Past Surgical History: Reports: Cholecystectomy, Hysterectomy, Orthopedic Surgery - knee surgery, Pacemaker Social History Information Source: [facility] Records Lives with: Family Smoking Status: Current Every Day Smoker Cigarettes Packs Per Day: 1 Passive smoke exposure as: Both Frequency of Alcohol Use: None Hx Recreational Drug Use: No Drugs: None Hx Prescription Drug Abuse: No - Advance Directive Resuscitation Status: Full Code Family History Parental Family History Reviewed: No Children Family History Reviewed: No Sibling(s) Family History Reviewed.: No Medication/Allergy Home Medications: Atorvastatin Calcium 40 mg PO QHS 02/10/13 Esomeprazole Magnesium [Nexium] 40 mg PO DAILY 02/10/13 Imatinib Mesylate [Gleevec] 400 mg PO DAILY 02/10/13 Levetiracetam [Keppra] 1,000 mg PO BID 04/22/14 Gabapentin [Neurontin 300 mg Capsule] 300 mg PO TID 11/17/14 Clopidogrel Bisulfate [Plavix 75 mg Tablet] 75 mg PO DAILY 11/30/15 Metoprolol Tartrate 12.5 mg PO BID 11/30/15 Levothyroxine Sodium 100 mcg PO DAILY 01/08/16 Buspirone HCl 15 mg PO BID 07/29/16 Zolpidem Tartrate 20 mg PO DAILY PRN 07/29/16 Fluoxetine HCl [Prozac 20 mg Capsule] 40 mg PO DAILY 12/10/16 Promethazine HCl 25 mg PO Q12 12/10/16 Sumatriptan Succinate [Imitrex] 25 mg PO DAILY PRN 12/10/16 Amitriptyline HCl [Elavil 10 Mg Tablet] 10 mg PO QHS 04/26/18 Aripiprazole [Abilify 15 mg Tablet] 15 mg PO DAILY 04/26/18 Benztropine Mesylate [Cogentin 1 mg Tablet] 1 tab PO BID 04/26/18 Fluticasone Propionate [Flonase Nasal [place] 50 Mcg/[place] 16 gm] 2 sprays NASL DAILY 04/26/18 Hydrocodone/Acetaminophen [[place] 7.5-325 mg Tablet] 1 tab PO Q8HP PRN 04/26/18 Naloxone HCl 1 mg IJ PRN PRN 04/26/18 Naloxone HCl [Narcan] 4 mg NS PRN PRN 04/26/18 Prazosin HCl 1 mg PO QHS 04/26/18 Allergies/Adverse Reactions: oxycodone [From Percocet] Allergy (Mild, Verified 12/15/16 08:16) Hives Penicillins Allergy (Mild, Verified 12/15/16 08:16) Hives Review of Systems ROS unobtainable: Due to endotracheal tube Physical Exam Vital Signs: Temp Pulse Resp BP Pulse Ox 98.7 F 100 28 H 109/59 L 100 05/03/18 03:14 05/03/18 03:14 05/03/18 04:00 05/03/18 03:14 05/03/18 04:00 Pulse Oximeter Continuous Start: 05/02/18 19: 53 Freq: RTQ4 Status: Hold Document 05/03/18 04:00 LRO (Rec: 05/03/18 05:08 LRO [id number]) Pulse Oximetry Assessment Oxygen Saturation (92-100) 100 Oxygen Delivery Method Bi-pap Fraction of Inspired Oxygen (FIO2) 80 Equipment Usage Equipment in Use Continuous SpO2 Machine # 11 Intake & Output 05/02/18 05/03/18 05/04/18 06:59 06:59 06:59 Intake Total 0755 1298 Balance 2484 7547 Weight 59.1 kg General appearance: PRESENT: no acute distress, disheveled, well-developed, well -nourished. ABSENT: cooperative Head exam: PRESENT: atraumatic, normocephalic Eye exam: PRESENT: conjunctiva pale. ABSENT: EOMI, nystagmus, periorbital swelling, scleral icterus Mouth exam: PRESENT: dry mucosa, neck supple, tongue midline, other - ET tube in place Neck exam: ABSENT: carotid bruit, JVD, lymphadenopathy, thyromegaly, tracheal deviation, tracheostomy Respiratory exam: PRESENT: decreased breath sounds, prolonged expiratory phas, rales, rhonchi, symmetrical, tachypnea, unlabored, wheezes. ABSENT: retraction , stridor Cardiovascular exam: PRESENT: RRR, +S1, +S2 Pulses: PRESENT: normal radial pulses GI/Abdominal exam: PRESENT: hypoactive bowel sounds, soft. ABSENT: tenderness Gentrourinary exam: PRESENT: indwelling catheter Extremities exam: ABSENT: calf tenderness, clubbing, joint swelling Musculoskeletal exam: ABSENT: ambulatory, deformity, dislocation Neurological exam: ABSENT: awake Skin exam: PRESENT: dry, warm Results Laboratory Results: 05/03/18 05:39 05/03/18 05:39 05/03/18 05/03/18 05/03/18 05:39 05:39 06:57 WBC 15.9 H RBC 2.64 L Hgb 8.1 L Hct 24.8 L MCV 94 MCH 30.6 MCHC 32.5 RDW 16.4 H Plt Count 233 Seg Neutrophils % Not Reportable Lymphocytes % Not Reportable Monocytes % Not Reportable Eosinophils % Not Reportable Basophils % Not Reportable Absolute Neutrophils Not Reportable Absolute Lymphocytes Not Reportable Absolute Monocytes Not Reportable Absolute Eosinophils Not Reportable Absolute Basophils Not Reportable Carbonic Acid 1.85 H HCO3/H2CO3 Ratio 13:1 ABG pH 7.23 L ABG pCO2 61.5 H ABG pO2 77.6 L ABG HCO3 25.3 H ABG O2 Saturation 92.8 L ABG Base Excess -2.6 FiO2 100% Sodium 143.0 Potassium 3.8 Chloride 105 Carbon Dioxide 29 Anion Gap 9 BUN 13 Creatinine 0.86 Est GFR ( Amer) > 60 Est GFR (Non-Af Amer) > 60 Glucose 130 H Calcium 8.5 Total Bilirubin 0.5 AST 79 H ALT 56 H Alkaline Phosphatase 196 H Total Protein 5.2 L Albumin 2.5 L Urine Color Urine Appearance Urine pH Ur Specific [place] Urine Protein Urine Glucose (UA) Urine Ketones Urine Blood Urine Nitrite Ur Leukocyte Esterase Urine WBC (Auto) Urine RBC (Auto) 05/03/18 05/03/18 07:30 08:14 WBC RBC Hgb Hct MCV MCH MCHC RDW Plt Count Seg Neutrophils % Lymphocytes % Monocytes % Eosinophils % Basophils % Absolute Neutrophils Absolute Lymphocytes Absolute Monocytes Absolute Eosinophils Absolute Basophils Carbonic Acid 1.57 H HCO3/H2CO3 Ratio 14:1 ABG pH 7.25 L ABG pCO2 52.2 H ABG pO2 50.8 L ABG HCO3 22.5 ABG O2 Saturation 79.8 L ABG Base Excess -5.2 FiO2 100% Sodium Potassium Chloride Carbon Dioxide Anion Gap BUN Creatinine Est GFR ( Amer) Est GFR (Non-Af Amer) Glucose Calcium Total Bilirubin AST ALT Alkaline Phosphatase Total Protein Albumin Urine Color YELLOW Urine Appearance TURBID Urine pH 5.0 Ur Specific [place] 1.021 Urine Protein 100 H Urine Glucose (UA) 50 H Urine Ketones NEGATIVE Urine Blood SMALL H Urine Nitrite NEGATIVE Ur Leukocyte Esterase NEGATIVE Urine WBC (Auto) 28 Urine RBC (Auto) 32 05/03/18 05/03/18 07:25 07:25 Creatine Kinase 157 H CK-MB (CK-2) 12.60 H Troponin I 3.230 Impressions: Chest/Abdomen CTA 04/26/18 20:33 IMPRESSION: No acute pulmonary embolism. Diffuse bilateral groundglass opacities throughout both lungs, right greater than left. Differential diagnosis includes multifocal infection, inflammation, edema, or ARDS in the correct clinical setting. Chest X-Ray 05/03/18 00:00 IMPRESSION: Worsened moderate to severe diffuse pulmonary edema pattern. Differential diagnosis includes multifocal pneumonia. Assessment & Plan - Diagnosis (1) Acute hypoxemic respiratory failure Is this a current diagnosis for this admission?: Yes Plan: Increase tidal volume increase PEEP supplement minute volume with increased respiratory rate as patient demonstrates it is needed (2) GERD (gastroesophageal reflux disease) Qualifiers: Esophagitis presence: without esophagitis Qualified Code(s): K21.9 - Gastro -esophageal reflux disease without esophagitis Is this a current diagnosis for this admission?: Yes Plan: Protonics (3) HTN (hypertension) Qualifiers: Hypertension type: essential hypertension Qualified Code(s): I10 - Essential (primary) hypertension Is this a current diagnosis for this admission?: Yes (4) Bilateral pneumonia Qualifiers: Pneumonia type: due to unspecified organism Lung location: unspecified part of lung Qualified Code(s): J18.9 - Pneumonia, unspecified organism Is this a current diagnosis for this admission?: Yes Plan: Empiric antibiotic therapy no positive cultures thus far (5) COPD (chronic obstructive pulmonary disease) Qualifiers: COPD type: unspecified COPD Qualified Code(s): J44.9 - Chronic obstructive pulmonary disease, unspecified Is this a current diagnosis for this admission?: Yes Plan: Bronchodilator therapy laba (as needed laba + long acting muscarinic agent combination) (6) Septic shock Is this a current diagnosis for this admission?: Yes Plan: Requiring levophed (7) ARDS (adult respiratory distress syndrome) Is this a current diagnosis for this admission?: Yes Plan: = 51 - Time Total Critical Time (Minutes): 65
[2018-05-03 10:43] LABS: ARTERIAL BLOOD H2CO3 1.11 mmol/L (1.05-1.35); ARTERIAL BLOOD HCO3 21.5 mmol/L (20-24); ARTERIAL BLOOD O2 SATURATION 87.9 % (94-98); ARTERIAL BLOOD PCO2 36.9 mmHg (35-45); ARTERIAL BLOOD PH 7.38 (7.35-7.45); ARTERIAL BLOOD PO2 54.2 mmHg (80-100); ARTERIAL BLOOD TOTAL CO2 22.6 mmol/L (21-25)
[2018-05-03 10:44] LABS: ARTERIAL BLOOD FIO2 65%
[2018-05-03] MEDS ORDERED: NORMAL SALINE 500 ML IV ONE (11:00)
[2018-05-03] MEDS ORDERED: PANTOPRAZOLE SODIUM 40 MG VIAL IV SCH (11:30)
[2018-05-03] MEDS: FLUTICASONE NASAL SPRAY 50 MCG/SPRY 120 SPRAY/16 GM NASL SCH (11:31)
[2018-05-03] MEDS: LEVETIRACETAM 500 MG TABLET PO SCH (11:32)
[2018-05-03] MEDS ORDERED: LEVETIRACETAM ORAL SOLN 500 MG/5 ML UDCUP PO SCH (12:00)
[2018-05-03] MEDS ORDERED: LEVETIRACETAM ORAL SOLN 500 MG/5 ML UDCUP NG ONE (12:15)
[2018-05-03] MEDS: AZTREONAM 1 GM in DEXTROSE 5%-WATER 50 ML IV SCH (12:43)
[2018-05-03] MEDS: VANCOMYCIN HCL 1,000 MG in DEXTROSE 5%-WATER 250 ML IV SCH (12:43)
[2018-05-03 13:25] LABS: CREATINE KINASE MB 41.2 ng/mL (<4.55); TROPONIN I 9.06 ng/mL
[2018-05-03] MEDS ORDERED: ENOXAPARIN SODIUM INJ 60 MG/0.6 ML DISP.SYRIN SUBCUT SCH (14:00)
[2018-05-03] MEDS ORDERED: GABAPENTIN 300 MG CAPSULE NG SCH (14:00)
[2018-05-03] MEDS ORDERED: SUCCINYLCHOLINE CHLORIDE INJ 200 MG/10 ML VIAL ONE (14:23)
--- NOTE | 2018-05-03 15:09 | PDOC TRANSFER SUMMARY ---
General Admission Date/PCP: 04/26/18 20:07 TATY MILLARD Resuscitation Status: Full Code - Transfer Diagnosis (1) Klebsiella pneumonia Is this a current diagnosis for this admission?: Yes (2) Acute hypoxemic respiratory failure Is this a current diagnosis for this admission?: Yes (3) Bilateral pneumonia Is this a current diagnosis for this admission?: Yes (4) CML (chronic myelocytic leukemia) Is this a current diagnosis for this admission?: Yes (5) Systolic CHF, chronic Is this a current diagnosis for this admission?: Yes (6) HTN (hypertension) Is this a current diagnosis for this admission?: Yes (7) HLD (hyperlipidemia) Is this a current diagnosis for this admission?: Yes (8) GERD (gastroesophageal reflux disease) Is this a current diagnosis for this admission?: Yes (9) Mixed anxiety and depressive disorder Is this a current diagnosis for this admission?: Yes (10) Seizure disorder Is this a current diagnosis for this admission?: Yes (11) Elevated troponin Is this a current diagnosis for this admission?: Yes Diagnosis Summary: See current medication management (12) Hypotension Is this a current diagnosis for this admission?: Yes Diagnosis Summary: See current medication management. - Transfer Medications Home Medications: Atorvastatin Calcium 40 mg PO QHS 02/10/13 Esomeprazole Magnesium [Nexium] 40 mg PO DAILY 02/10/13 Imatinib Mesylate [Gleevec] 400 mg PO DAILY 02/10/13 Levetiracetam [Keppra] 1,000 mg PO BID 04/22/14 Gabapentin [Neurontin 300 mg Capsule] 300 mg PO TID 11/17/14 Clopidogrel Bisulfate [Plavix 75 mg Tablet] 75 mg PO DAILY 11/30/15 Metoprolol Tartrate 12.5 mg PO BID 11/30/15 Levothyroxine Sodium 100 mcg PO DAILY 01/08/16 Buspirone HCl 15 mg PO BID 07/29/16 Zolpidem Tartrate 20 mg PO DAILY PRN 07/29/16 Fluoxetine HCl [Prozac 20 mg Capsule] 40 mg PO DAILY 12/10/16 Promethazine HCl 25 mg PO Q12 12/10/16 Sumatriptan Succinate [Imitrex] 25 mg PO DAILY PRN 12/10/16 Amitriptyline HCl [Elavil 10 Mg Tablet] 10 mg PO QHS 04/26/18 Aripiprazole [Abilify 15 mg Tablet] 15 mg PO DAILY 04/26/18 Benztropine Mesylate [Cogentin 1 mg Tablet] 1 tab PO BID 04/26/18 Fluticasone Propionate [Flonase Nasal [place] 50 Mcg/[place] 16 gm] 2 sprays NASL DAILY 04/26/18 Hydrocodone/Acetaminophen [[place] 7.5-325 mg Tablet] 1 tab PO Q8HP PRN 04/26/18 Naloxone HCl 1 mg IJ PRN PRN 04/26/18 Naloxone HCl [Narcan] 4 mg NS PRN PRN 04/26/18 Prazosin HCl 1 mg PO QHS 04/26/18 Transfer Medications: Current Medications Acetaminophen (Tylenol Soln 325 Mg/10.15 Ml Udcup) 650 mg NG Q4HP PRN PRN Reason: FEVER ABOVE 101.0 Stop: 06/02/18 07:27 Hydrocodone Bitart/Acetaminophen ([place] 5-325 Mg Tablet) 1 tab NG Q4HP PRN PRN Reason: PAIN Stop: 05/04/18 02:06 Albuterol/Ipratropium (Duoneb 3 Ml Ampul) 3 ml NEB RTQ4HP PRN PRN Reason: SHORTNESS OF BREATH Stop: 05/30/18 22:33 Last Admin: 05/03/18 14:14 Dose: 3 ml Amitriptyline HCl (Elavil 10 Mg Tablet) 10 mg NG QHS VARSHA Stop: 05/27/18 21:59 Aripiprazole (Abilify 5 Mg Tablet) 15 mg NG DAILY VARSHA Stop: 05/27/18 09:59 Last Admin: 05/03/18 11:29 Dose: 15 mg Atorvastatin Calcium (Lipitor 40 Mg Tablet) 40 mg NG QHS VARSHA Stop: 05/27/18 21:59 Benzonatate (Tessalon Perles 100 Mg Capsule) 100 mg PO Q8 VARSHA Stop: 05/27/18 21:59 Last Admin: 05/03/18 05:37 Dose: 100 mg Benztropine Mesylate (Cogentin 1 Mg Tablet) 1 mg NG BID VARSHA Stop: 05/27/18 09:59 Last Admin: 05/03/18 11:30 Dose: 1 mg Buspirone HCl (Buspar 10 Mg Tablet) 15 mg NG BID VARSHA Stop: 05/27/18 09:59 Last Admin: 05/03/18 11:30 Dose: 15 mg Clopidogrel Bisulfate (Plavix 75 Mg Tablet) 75 mg NG DAILY VARSHA Stop: 05/27/18 09:59 Last Admin: 05/03/18 11:25 Dose: 75 mg Enoxaparin Sodium (Lovenox Inj 60 Mg/0.6 Ml Disp.Syrin) 60 mg SUBCUT Q12 VARSHA Stop: 06/02/18 13:59 Fluconazole (Diflucan 100 Mg Tablet) 100 mg NG QHS VARSHA Stop: 05/05/18 21:59 Fluoxetine HCl (Prozac 20 Mg Capsule) 40 mg NG DAILY VARSHA Stop: 05/27/18 09:59 Last Admin: 05/03/18 11:26 Dose: 40 mg Fluticasone Propionate (Flonase Nasal [place] 50 Mcg/[place] 16 Gm) 2 spray NASL DAILY VARSHA Stop: 05/27/18 09:59 Last Admin: 05/03/18 11:31 Dose: Not Given Gabapentin (Neurontin 300 Mg Capsule) 300 mg NG Q8 VARSHA Stop: 05/27/18 13:59 Guaifenesin (Robitussin Syrup 200 Mg/10 Ml Ud Cup) 200 mg NG Q4HP PRN PRN Reason: COUGH Stop: 05/26/18 22:22 Levofloxacin/Dextrose (Levaquin Rtu 500mg/D5w 100 Ml Premix) 500 mg in 100 mls @ 100 mls/hr IV QPM VARSHA Stop: 05/04/18 17:59 Last Infusion: 05/02/18 18:53 Dose: Infused Aztreonam 1 gm/ Dextrose 50 mls @ 100 mls/hr IV Q12 VARSHA Stop: 05/04/18 09:59 Last Admin: 05/03/18 12:43 Dose: 100 ml/hr, 100 mls/hr Vancomycin HCl 1,000 mg/ (Dextrose) 250 mls @ 166.667 mls/hr IV Q12 VARSHA Stop: 05/07/18 09:59 Last Admin: 05/03/18 12:43 Dose: 166.67 mls/hr, 166.67 mls/hr Dopamine HCl/Dextrose (Dopamine Rtu 800 Mg-D5w 250 Ml (Adult) Premix) 800 mg in 250 mls @ 0 mls/hr IV CONTINUOUS PRN; Protocol; Titrate PRN Reason: THIS MED IS NOT "PRN" Stop: 06/02/18 08:21 Norepinephrine Bitartrate 4 mg (/ Dextrose) 250 mls @ 0 mls/hr IV CONTINUOUS PRN; Protocol; Titrate PRN Reason: THIS MED IS NOT "PRN" Stop: 06/02/18 08:22 Last Admin: 05/03/18 08:55 Dose: 8 mcg/min, 30 mls/hr Propofol (Diprivan Rtu 1000 Mg/100 Ml Inf.Bottle) 1,000 mg in 100 mls @ 0 mls/ hr IV CONTINUOUS PRN; Protocol; Titrate PRN Reason: THIS MED IS NOT "PRN" Stop: 06/02/18 08:30 Last Titration: 05/03/18 09:30 Dose: 40 mcg/kg/min, 14.18 mls/hr Sodium Chloride (Nacl 0.9% 1000 Ml Iv Soln) 1,000 mls @ 75 mls/hr IV CONTINUOUS PRN PRN Reason: THIS MED IS NOT "PRN" Stop: 06/02/18 09:59 Dextrose/Lactated Ringer's (D5lr 1000 Ml Iv Soln) 1,000 mls @ 125 mls/hr IV CONTINUOUS PRN PRN Reason: THIS MED IS NOT "PRN" Last Admin: 05/03/18 10:30 Dose: 125 mls/hr Levalbuterol HCl (Xopenex Neb 1.25 Mg/3 Ml Ampul) 1.25 mg NEB RTQ6HP PRN PRN Reason: REPIRATORY TREATMENT Stop: 06/02/18 08:59 Levetiracetam (Keppra Oral Soln 500 Mg/5 Ml Udcup) 1,000 mg NG Q12 VARSHA Stop: 06/02/18 11:59 Levothyroxine Sodium (Synthroid 0.1 Mg Tablet) 0.1 mg NG Q6AM VARSHA Stop: 05/28/18 05:59 Metoprolol Tartrate (Lopressor 25 Mg Tablet) 12.5 mg NG Q12 VARSHA Stop: 05/27/18 09:59 Last Admin: 05/03/18 11:26 Dose: 12.5 mg Ondansetron HCl (Zofran Inj/Pf 4 Mg/2 Ml Sdv) 4 mg IV Q6HP PRN PRN Reason: FOR NAUSEA/VOMITING Stop: 06/01/18 15:45 Pantoprazole Sodium (Protonix Iv Inj 40 Mg Vial) 40 mg IV Q12 VARSHA Stop: 05/06/18 11:29 Last Admin: 05/03/18 11:59 Dose: 40 mg Patient Own Medication (Prazosin Hcl [Prazosin Hcl]) 1 mg PO .QHS VARSHA Stop: 05/27/18 21:59 Imatinib Mesylate [ Gleevec] 400 Mg Tablets 1 dose PO QHS VARSHA Stop: 06/01/18 21:59 Last Admin: 05/02/18 22:00 Dose: 1 dose Pharmacy Profile Note (Medication Communication Order) 1 each .NOTICE NR Stop: 06/02/18 06:59 Promethazine HCl (Phenergan 25 Mg Tablet) 25 mg NG Q12 VARSHA Stop: 05/27/18 09:59 Last Admin: 05/03/18 11:25 Dose: 25 mg - Allergies Allergies/Adverse Reactions: oxycodone [From Percocet] Allergy (Mild, Verified 12/15/16 08:16) Hives Penicillins Allergy (Mild, Verified 12/15/16 08:16) Hives Hospital Course Hospital Course: Patient was admitted for pneumonia and acute respiratory failure with hypoxemia. She was initially managed with IV Levofloxacin, Aztreonam, and Vancomycin. Her sputum culture did revealed yeast not chana and due to her immunocompromised state from CML she was started on oral Diflucan. Her hospital stay remain compromised despite supplemental oxygen via nasal cannula necessitating use of high flow nasal cannula and BiPAP support. Unknown to the medial team she was self medicating with home supply of Gleevec (Imatinib) for CML treatment. Due to recurrent hypoxemia on BiPAP adjustment was made to her BiPAP pressure without any significant improvement. She was eventually transferred to ICU and intubated and vent supported. She was seen in consultation by Dr. Portillo, electrician crane maintenance, and Dr. Raymundo, claims configuration analyst for input into her management. She remain on listed antibiotic therapy and antifungal was changed to IV route. She remain on IV fluid and pressor support including Dopamine and Levophed. Due to her elevated cardiac enzymes and upward trend, it was deem necessary to transfer to tertiary center for more specialist intervention not available at our facility. I discussed case with Dr. Perez at [facility] ICU and patient have been accepted. Transfer will take place as soon as bed is available. Her prognosis remain guided. I had discussion regarding her change in clinical status and need for transfer with her daughter. Physical Exam Vital Signs: Temp Pulse Resp BP Pulse Ox 100.2 F 105 H 25 H 103/72 94 05/03/18 09:44 05/03/18 09:23 05/03/18 09:44 05/03/18 09:44 05/03/18 12:15 Pulse Oximeter Continuous Start: 05/02/18 19: 53 Freq: RTQ4 Status: Hold Document 05/03/18 04:00 LRO (Rec: 05/03/18 05:08 LRO [id number]) Pulse Oximetry Assessment Oxygen Saturation (92-100) 100 Oxygen Delivery Method Bi-pap Fraction of Inspired Oxygen (FIO2) 80 Equipment Usage Equipment in Use Continuous SpO2 Machine # 11 Intake & Output 05/02/18 05/03/18 05/04/18 06:59 06:59 06:59 Intake Total 2486 2524 8 Balance 2486 2524 8 Weight 59.1 kg Intubated and vent supported. ET and NG tubes in situ Head exam: PRESENT: atraumatic, normocephalic Eye exam: PRESENT: conjunctiva pink, PERRLA. ABSENT: scleral icterus Respiratory exam: PRESENT: crackles, decreased breath sounds, unlabored, wheezes Cardiovascular exam: PRESENT: +S1, +S2, tachycardia. ABSENT: diastolic murmur, rubs, systolic murmur Vascular exam: ABSENT: pallor GI/Abdominal exam: PRESENT: normal bowel sounds, soft. ABSENT: distended, guarding, mass, organolmegaly, rebound, tenderness Extremities exam: ABSENT: pedal edema Neurological exam: PRESENT: altered - Sedated on IV propofol Results Laboratory Results: 05/03/18 05:39 05/03/18 05:39 05/03/18 05/03/18 05/03/18 05:39 05:39 06:57 WBC 15.9 H RBC 2.64 L Hgb 8.1 L Hct 24.8 L MCV 94 MCH 30.6 MCHC 32.5 RDW 16.4 H Plt Count 233 Seg Neutrophils % Not Reportable Lymphocytes % Not Reportable Monocytes % Not Reportable Eosinophils % Not Reportable Basophils % Not Reportable Absolute Neutrophils Not Reportable Absolute Lymphocytes Not Reportable Absolute Monocytes Not Reportable Absolute Eosinophils Not Reportable Absolute Basophils Not Reportable Carbonic Acid 1.85 H HCO3/H2CO3 Ratio 13:1 ABG pH 7.23 L ABG pCO2 61.5 H ABG pO2 77.6 L ABG HCO3 25.3 H ABG O2 Saturation 92.8 L ABG Base Excess -2.6 FiO2 100% Sodium 143.0 Potassium 3.8 Chloride 105 Carbon Dioxide 29 Anion Gap 9 BUN 13 Creatinine 0.86 Est GFR ( Amer) > 60 Est GFR (Non-Af Amer) > 60 Glucose 130 H Calcium 8.5 Total Bilirubin 0.5 AST 79 H ALT 56 H Alkaline Phosphatase 196 H Total Protein 5.2 L Albumin 2.5 L Urine Color Urine Appearance Urine pH Ur Specific [place] Urine Protein Urine Glucose (UA) Urine Ketones Urine Blood Urine Nitrite Ur Leukocyte Esterase Urine WBC (Auto) Urine RBC (Auto) 05/03/18 05/03/18 05/03/18 07:30 08:14 09:20 WBC RBC Hgb Hct MCV MCH MCHC RDW Plt Count Seg Neutrophils % Lymphocytes % Monocytes % Eosinophils % Basophils % Absolute Neutrophils Absolute Lymphocytes Absolute Monocytes Absolute Eosinophils Absolute Basophils Carbonic Acid 1.57 H Cancelled HCO3/H2CO3 Ratio 14:1 Cancelled ABG pH 7.25 L Cancelled ABG pCO2 52.2 H Cancelled ABG pO2 50.8 L Cancelled ABG HCO3 22.5 Cancelled ABG O2 Saturation 79.8 L Cancelled ABG Base Excess -5.2 Cancelled FiO2 100% Cancelled Sodium Potassium Chloride Carbon Dioxide Anion Gap BUN Creatinine Est GFR ( Amer) Est GFR (Non-Af Amer) Glucose Calcium Total Bilirubin AST ALT Alkaline Phosphatase Total Protein Albumin Urine Color YELLOW Urine Appearance TURBID Urine pH 5.0 Ur Specific [place] 1.021 Urine Protein 100 H Urine Glucose (UA) 50 H Urine Ketones NEGATIVE Urine Blood SMALL H Urine Nitrite NEGATIVE Ur Leukocyte Esterase NEGATIVE Urine WBC (Auto) 28 Urine RBC (Auto) 32 05/03/18 10:23 WBC RBC Hgb Hct MCV MCH MCHC RDW Plt Count Seg Neutrophils % Lymphocytes % Monocytes % Eosinophils % Basophils % Absolute Neutrophils Absolute Lymphocytes Absolute Monocytes Absolute Eosinophils Absolute Basophils Carbonic Acid 1.11 HCO3/H2CO3 Ratio 19:1 ABG pH 7.38 ABG pCO2 36.9 ABG pO2 54.2 L ABG HCO3 21.5 ABG O2 Saturation 87.9 L ABG Base Excess -3.0 FiO2 65% Sodium Potassium Chloride Carbon Dioxide Anion Gap BUN Creatinine Est GFR ( Amer) Est GFR (Non-Af Amer) Glucose Calcium Total Bilirubin AST ALT Alkaline Phosphatase Total Protein Albumin Urine Color Urine Appearance Urine pH Ur Specific [place] Urine Protein Urine Glucose (UA) Urine Ketones Urine Blood Urine Nitrite Ur Leukocyte Esterase Urine WBC (Auto) Urine RBC (Auto) 05/03/18 05/03/18 05/03/18 07:25 07:25 12:41 Creatine Kinase 157 H 462 H CK-MB (CK-2) 12.60 H Troponin I 3.230 05/03/18 12:41 Creatine Kinase CK-MB (CK-2) 41.20 H Troponin I 9.060 Impressions: Chest/Abdomen CTA 04/26/18 20:33 IMPRESSION: No acute pulmonary embolism. Diffuse bilateral groundglass opacities throughout both lungs, right greater than left. Differential diagnosis includes multifocal infection, inflammation, edema, or ARDS in the correct clinical setting. Chest X-Ray 05/03/18 00:00 IMPRESSION: Worsened moderate to severe diffuse pulmonary edema pattern. Differential diagnosis includes multifocal pneumonia. Plan Discharge Plan: Transfer to [facility] under Dr. Perez service.
[2018-05-03 15:38] VITALS: BP 93/58
[2018-05-03] MEDS ORDERED: LEVETIRACETAM ORAL SOLN 500 MG/5 ML UDCUP NG SCH (22:00)
[2018-05-03] MEDS ORDERED: FLUCONAZOLE 100 MG TABLET NG SCH (22:00)
[2018-05-03] MEDS ORDERED: AMITRIPTYLINE HCL 10 MG TABLET NG SCH (22:00)
[2018-05-03] MEDS ORDERED: ATORVASTATIN CALCIUM 40 MG TABLET NG SCH (22:00)
[2018-05-04] MEDS ORDERED: LEVOTHYROXINE SODIUM 0.1 MG TABLET NG SCH (06:00)
== END 2018-05-03 16:50 | disposition short-term general hospital (02) | DRG 208 ==
LOC: ER 16:50 → EH 20:07 → 3S 04-27 00:43 → ICU 05-03 07:00
PROVIDERS: ADMIT Internal Medicine Geriatric Medicine; ATTEND Internal Medicine Geriatric Medicine
PROC: 0BH17EZ Insertion of Endotracheal Airway into Trachea, Via Natural or Artificial Opening (ICD-10-PCS; principal; 2018-05-03)
PROC: 5A1935Z Respiratory Ventilation, Less than 24 Consecutive Hours (ICD-10-PCS; 2018-05-03)
DX: J15.0 Pneumonia due to Klebsiella pneumoniae (principal); J96.01 Acute respiratory failure with hypoxia; C92.10 Chronic myeloid leukemia, BCR/ABL-positive, not having achieved remission; I50.22 Chronic systolic (congestive) heart failure; J44.0 Chronic obstructive pulmonary disease with (acute) lower respiratory infection; J44.9 Chronic obstructive pulmonary disease, unspecified; I11.0 Hypertensive heart disease with heart failure; E03.9 Hypothyroidism, unspecified; K21.9 Gastro-esophageal reflux disease without esophagitis; M79.7 Fibromyalgia; F41.8 Other specified anxiety disorders; G40.909 Epilepsy, unspecified, not intractable, without status epilepticus; G43.909 Migraine, unspecified, not intractable, without status migrainosus; F17.210 Nicotine dependence, cigarettes, uncomplicated; Z79.899 Other long term (current) drug therapy
CPT/HCPCS: 31500; 36415; 36600; 71045; 71275; 80048; 80053; 80202; 81001; 82550; 82553; 82565; 82803; 82962; 83605; 83735; 84484; 85025; 87040; 87070; 87077; 87086; 87186; 87205; 93005; 93010; 94002; 94003; 94640; 94660; 94667; 94668; 94762; 94799; 96365; 96375; 99291; J0330; J1650; J1956; J2270; J2704; J3370; J3490; J7060; J7620; S0164